=== PATIENT | female | born 1960 | race Caucasian/White ===

== ENCOUNTER → 2017-11-04 11:49 | Outpatient (CLI) | payer OTHER, SELFPAY ==
[2017-11-06 11:27] LABS: Anti-Thyroglobulin AB < 1.0 IU/mL (0.0-0.9); Thyroglobulin, Serum Qt. < 0.1 ng/mL (1.5-38.5)
== END ==
PROVIDERS: Family Provider Family Medicine; PCP Family Medicine; Visit Provider Internal Medicine Endocrinology, Diabetes & Metabolism
DX: C73 Malignant neoplasm of thyroid gland (principal)
CPT/HCPCS: 36415; 84432; 86800

== ENCOUNTER → 2018-05-03 14:01 | Outpatient (CLI) | payer OTHER, SELFPAY ==
[2018-05-03 14:56] LABS: Anion Gap 7 (5-15); BUN 14 mg/dL (7-18); BUN/Creat Ratio 17.7 RATIO (10-20); Chloride 106 mmol/L (98-107); Creatinine, Serum 0.79 mg/dL (0.55-1.02); EST Glomerular Filtration Rate 79 mL/min (>60); Est Glom Filt Rate - Afr Amer 96 mL/min (>60); Glucose 94 mg/dL (74-106); Potassium 4.2 mmol/L (3.5-5.1); Sodium Level 140 mmol/L (136-145); Thyroid Stim Hormone (TSH) 0.23 uIU/mL (0.358-3.74)
[2018-05-04 14:08] LABS: Thyroid Peroxidase AB 15 IU/mL (0-34)
[2018-05-05 13:21] LABS: Anti-Thyroglobulin AB < 1.0 IU/mL (0.0-0.9); Thyroglobulin, Serum Qt. < 0.1 ng/mL (1.5-38.5)
[2018-05-05 15:45] LABS: Thyroglobulin Antibody < 1.0 IU/mL (0.0-0.9)
== END ==
PROVIDERS: Family Provider Family Medicine; PCP Family Medicine; Referring Provider Internal Medicine Endocrinology, Diabetes & Metabolism; Visit Provider Internal Medicine Endocrinology, Diabetes & Metabolism
DX: C73 Malignant neoplasm of thyroid gland (principal)
CPT/HCPCS: 36415; 80048; 84432; 84443; 86376; 86800

== ENCOUNTER → 2018-07-14 09:36 | Outpatient (CLI) | payer OTHER, SELFPAY ==
[2015-05-31 06:42] VITALS: BMI 43.2
[2018-07-14 11:22] LABS: Thyroid Stim Hormone (TSH) 1.13 uIU/mL (0.358-3.74)
== END ==
PROVIDERS: Family Provider Family Medicine; PCP Family Medicine; Referring Provider Internal Medicine Endocrinology, Diabetes & Metabolism; Visit Provider Internal Medicine Endocrinology, Diabetes & Metabolism
DX: C73 Malignant neoplasm of thyroid gland (principal)
CPT/HCPCS: 36415; 84443

== ENCOUNTER → 2018-11-08 | Outpatient (CLI) | payer OTHER, SELFPAY ==
[2015-05-31 06:42] VITALS: BMI 43.2
[2018-11-08 09:48] LABS: Anion Gap 4 (5-15); BUN 15 mg/dL (7-18); BUN/Creat Ratio 16.6 RATIO (10-20); Chloride 108 mmol/L (98-107); EST Glomerular Filtration Rate 68 mL/min (>60); Est Glom Filt Rate - Afr Amer 83 mL/min (>60); Glucose 91 mg/dL (74-106); Potassium 3.8 mmol/L (3.5-5.1); Sodium Level 141 mmol/L (136-145); Thyroid Stim Hormone (TSH) 1.67 uIU/mL (0.358-3.74)
[2018-11-19 08:52] LABS: Thyroglobulin RIA < 2.0 ng/mL (.)
== END | disposition home or self-care (01) ==
PROVIDERS: Family Provider Family Medicine; PCP Family Medicine; Referring Provider Internal Medicine Endocrinology, Diabetes & Metabolism; Visit Provider Internal Medicine Endocrinology, Diabetes & Metabolism
DX: C73 Malignant neoplasm of thyroid gland (principal)
CPT/HCPCS: 36415; 80048; 84432; 84443; 86800

== ENCOUNTER → 2020-01-02 11:52 | Outpatient (CLI) | payer OTHER, SELFPAY ==
--- NOTE | 2020-01-02 12:00 | VDLE_ITS ---
Reason For Study: localized edema RIGHT GSV is normal. CFV is compressible, spontaneous, phasic, competent and demonstrates normal augmentation. FV is compressible, spontaneous, phasic, competent and demonstrates normal augmentation. POP V is compressible, spontaneous, phasic, competent and demonstrates normal augmentation. T/P Trunk is compressible. PTV is compressible. RT PerV is compressible. Procedure Exam performed in department. The exam was abbreviated due to the COVID 19 protocol. The exam was diagnostic. A preliminary report was called and/or faxed to Dr. Da Silva. Interpretation Summary Deep veins of the right lower extremity are patent and compressible segmentally. There is no evidence of right lower extremity deep vein thrombosis. Valvular competence appears intact within the proximal deep venous system on the right . The right great saphenous vein appears patent and compressible segmentally. Ordering Physician: Burton Da Silva Performed By: Ky Fulton RVT
--- NOTE | 2020-01-02 12:23 | RAD_ITS ---
STUDY: X-RAY - RIGHT KNEE REASON FOR EXAM: Female, 59 years old. Knee pain x several weeks, NKI -- swelling TECHNIQUE: 4 view(s) of the knee. COMPARISON: None. FINDINGS: Normal visualized distal femur. Normal visualized proximal tibia and fibula. Normal proximal tibiofibular articulation. There is mild degenerative arthrosis of the medial femorotibial compartment. Normal lateral femorotibial compartment. There is mild degenerative arthrosis of the patellofemoral articulation. There is a soft tissue prominence in the suprapatellar region suggesting a small volume joint effusion. The soft tissue structures are unremarkable. RAD/Knee 4 or More Views IMPRESSION: Mild arthrosis with suprapatellar effusion. No demonstrated fracture or suspicious osseous lesion Electronically Signed: Rafael Membreno MD at 16:50 EDT , Service support ,
== END ==
PROVIDERS: PCP Family Medicine Geriatric Medicine; Referring Provider Family Medicine Geriatric Medicine; Visit Provider Family Medicine Geriatric Medicine
DX: M25.561 Pain in right knee (principal); R60.0 Localized edema
CPT/HCPCS: 73564; 93971

== ENCOUNTER → 2020-02-09 10:19 | Outpatient (CLI) | payer OTHER, SELFPAY ==
[2020-01-29 08:06] VITALS: BMI 39.9
--- NOTE | 2020-02-09 10:20 | MRI_ITS ---
STUDY: MRI RIGHT KNEE REASON FOR EXAM: Right knee pain for 1.5 months, especially medial and anterior, injury. TECHNIQUE: Standardized fat and water weighted pulse sequences were obtained in all 3 orthogonal planes. COMPARISON: Radiographs 01/02/2020. FINDINGS: There is a radial tear of the posterior horn of the medial meniscus (T2 coronal images 13, 14; proton density sagittal image 30). There is mild arthrosis of the medial femorotibial compartment with mild partial-thickness chondral loss of the medial femoral condyle (T2 sagittal image 16). There is very mild subchondral bone edema of the medial femoral condyle and tibial plateau (T2 coronal images 14-16), a stress phenomenon. There is a sprain of the superficial fibers of the medial collateral ligament (T2 coronal image 17). Normal distal semimembranosus, gracilis and semitendinosus tendons. Normal lateral meniscus. Normal hyaline cartilage of the lateral femorotibial compartment. Normal lateral femoral condyle and tibial plateau. Normal proximal tibiofibular articulation. Normal lateral collateral (fibular) ligament. Normal popliteus tendon. Normal biceps femoris tendon. Normal anterior cruciate ligament (ACL). Normal posterior cruciate ligament (PCL). Normal congruent patellofemoral articulation. There is arthrosis of the patellofemoral compartment with chondral thinning (T2 sagittal image 10) and slight subchondral bone edema. Normal medial and lateral patellar retinaculum. Normal visualized quadriceps tendon. Normal patellar tendon. Normal Hoffa''s fat pad. There is a moderate-sized joint effusion. There is edema in the anterior subcutis adipose space. There is cystic change in the proximal tibia at the insertion site of the posterior cruciate ligament. MRI/Lower Ext Joint Only (Routine) IMPRESSION: Radial tear of the medial meniscus. Medial collateral ligament sprain. Patellofemoral arthrosis and mild arthrosis of the medial femorotibial compartment. Very mild subchondral bone edema of the medial femoral condyle and medial tibial plateau, a stress phenomenon. Joint effusion. Electronically Signed: Ras Mayo MD at 11:45 EDT Tel , Service support ,
== END ==
PROVIDERS: PCP Family Medicine Geriatric Medicine; Referring Provider Orthopaedic Surgery; Visit Provider Orthopaedic Surgery
DX: M23.91 Unspecified internal derangement of right knee (principal)
CPT/HCPCS: 73721

== ENCOUNTER 2020-02-20 06:33 | Day surgery (SDC) | payer OTHER, SELFPAY ==
[2020-02-14 08:06] VITALS: BMI 43.2
[2020-02-20 07:00] VITALS: BP 142/77; PULSE 69; RESP 16; TEMP 37.1; O2SAT 97; BMI 40.7
[2020-02-20] MEDS: Lactated Ringers 1,000 ML 100 ML IV (07:05)
--- NOTE | 2020-02-20 07:17 | HP.PCM_ITS ---
History and Physical Date of Admission: 02/20/20 Intake Intake Visit Reasons: RIGHT KNEE Is patient in pain?: Yes Allergies No Known Allergies Allergy (Verified 02/14/20 08:01) Medications Ergocalciferol [Vitamin D] 50,000 unit PO Q7D 04/26/15 [History Confirmed 02/14/20] levothyroxine 75 mcg tablet 175 mcg PO DAILY tab 01/29/20 [History Confirmed 02/14/20] PFSH Social History (Updated 02/14/20 @ 09:[address] Lokesh Powell DO) Smoking Status: Never smoker HPI RIGHT KNEE: Details: Parts of this documentation were recorded by a scribe, this doc umentation accurately reflects the service provided and the decisions made by me, Dr. Lokesh Powell DO 02/14/20 0748. DUSTIN DOMINGUEZ is a 59 year old F here today for right knee followup. Patient no shiv that she continues to have right knee pain. Her pain is over her anterior and medial knee. She complains of tightness all over her anterior knee. Patient has popping and clicking . She has knee instability especially when ambulating on an uneven surface. She had an MRI which is here for review. Patient denies any pain medications. ROS Musc Reports joint pain Skin/Breast Reports system reviewed and no additional complaints, except as docu Neuro Yes system reviewed and no additional complaints, except as docu Ortho Exam Right Knee Skin/Wound: Yes CDI, No erythema, No ecchymosis, Yes swelling Homans Sign: No 2+: Effusion Knee ROM: Yes ROM-Extension -20 to 0, No ROM-Flexion 0-140 (110) Examination: Yes Med jt line tenderness, Yes Crepitus, Yes Masha's Test (medial), Yes TTP Pes Anserine (mild) Stability: NML: Anterior Drawer, NML: Posterior Drawer, NML: Valgus 30, NML: Varus 30 Patella Translation: 1 Apprehension with Lateral Translation: No Patella Grind: Yes KNEE: lateral knee diane. scars over medial knee. Left Knee Patella Translation: 1 Supplemental Info 02/09/2020 MRI right knee: Radial tear posterior horn medial meniscus, Mild to moderate medial and patellofemoral arthrosisMild subchondral bone edema medial femoral condyle and medial tibial plateauJoint effusion 01/02/2020 X-ray right knee: Mild medial joint space narrowing mild spurring medial compartment And medial and lateral femoral condyles Assessment & Plan Problems 1. Other tear of medial meniscus of right knee as current injury, subsequent encounter S83.241D 2. Primary osteoarthritis of right knee M17.11 3. Bone bruise T14.8XXA Plan Spoke with the patient about her options. Recommended the patient have a arthroscopy for the medial meniscus tear. Explained she has edema in her bone and osteoarthritis so she might continue to have pain. If she has knee surgery and continues to have pain at 6 weeks post op, she may have a steroid injection. Spoke with the patient about the surgery procedure and recovery. Patient wanted to proceed with surgery. She should not take ibuprofen and aleve 1 week prior to surgery. Follow up for 2 week post op or sooner if pain, swelling, numbness or associated symptoms, or concerns develop. All questions answered. Patient in agreement of plan. Coding Level of Care Code Off vis,est,level 3 Diagnoses Other tear of medial meniscus of right knee as current injury, subsequent encounter S83.241D ??Encounter type: subsequent encounter ??Meniscus tear of knee type: other type ??Tear current or old: current Primary osteoarthritis of right knee M17.11 I have re-examined the patient. There are no clinical changes since date of exam ??Osteoarthritis type: primary Bone bruise T14.8XXA COVID (Procedure Consent) Procedure Criteria Procedure Criteria: Yes Elective The surgeon/proceduralist and patient have discussed in detail the risk of exposure to and/or potential harm posed by the COVID-19 virus with having a surgery/procedure at this time versus the risk of? delaying the surgery/procedure. It is not possible to know either the risk of delaying the surgery or procedure or chance of getting an infection with perfect accuracy, but a joint decision was made between the patient and the surgeon/proceduralist ?to proceed at this time with the scheduled surgery/procedure as indicated on the consent form. I have re-examined the patient. There are no clinical changes since date of exam Procedure Criteria Procedure Type: Elective COVID Risk Discussion: The surgeon/proceduralist and patient have discussed in detail the risk of exposure to and/or potential harm posed by the COVID-19 virus with having a surgery/procedure at this time versus the risk of delaying the surgery/procedure. It is not possible to know either the risk of delaying the surgery or procedure or chance of getting an infection with perfect accuracy, but a joint decision was made between the patient and the surgeon/proceduralist to proceed at this time with the scheduled surgery/procedure as indicated on the consent form.
[2020-02-20] MEDS: Cefazolin 2 GM in 0.9% Normal Saline 100 ML IV (08:28)
[2020-02-20] MEDS: Epinephrine (1 mg/ml) 1 MG/ML VIAL (08:51)
[2020-02-20] MEDS: Bupiv/Epi 0.5% Mpf 30 ML Vial (08:51)
[2020-02-20] MEDS: Bupivacaine 0.5% PF 10 ML VIAL (09:00)
[2020-02-20] MEDS: MethylPREDNISolone Acetate 80 MG/ML Vial (09:00)
[2020-02-20] MEDS: morphine PF (epidural) 5 MG/10 ML Vial (09:00)
--- NOTE | 2020-02-20 09:08 | DCINST_ITS ---
Discharge Diet: No Restrictions Weight Bearing Status: Weight bearing as tolerated Keep extremity elevated above heart level: Operative Extremity Call your doctor if you observe: Shortness of breath, Chest pain Additional Instructions: Ice and elevate next 72 hours .keep dressing on clean and dry for 48 hours then may remove begin showering daily but do not submerge in tub or pool. After shower may apply Band-Aids . Encourage knee range of motion weightbearing as tolerated, use crutches until confident in knee then may discontinue. No strenuous activity. When not ambulating keep iced and elevated next 72 hours. Allergies/Adverse Reactions: Allergies No Known Allergies Allergy (Verified 02/20/20 06:59) Medications to take at Discharge Ergocalciferol [Vitamin D] 50,000 unit PO Q7D 04/26/15 levothyroxine 75 mcg tablet 175 mcg PO MOTUWETHFRSA tab 01/29/20 Oxycodone [Oxyir] 5 mg PO Q4H PRN PRN #30 tablet 02/20/20 The following prescriptions were given: Oxycodone [Oxyir] 5 mg PO Q4H PRN PRN #30 tablet PRN Reason: Pain Score 6-10/10 Transmission Status: Sent to [facility] Primary Care Physician: Burton Da Silva Chi, MD [Primary Care Provider] - Test Results: Test results from this visit will be discussed in further detail at your follow- up appointment, if applicable. Please Follow Up With: Lokesh Powell DO - 2 weeks
[2020-02-20 09:18] VITALS: BP 117/69; BP 142/77; PULSE 61; RESP 18; TEMP 36.3; O2SAT 96
--- NOTE | 2020-02-20 09:27 | OP.PCM_ITS ---
Report of Operation Date of Procedure: 02/20/20 Description of Surgical Findings:: Preop diagnosis: Right knee medial meniscus tear DJD Postoperative diagnosis: Complex tear posterior horn and body medial meniscus grade 3-4 changes of the medial and patellofemoral compartment with loose cartilage flaps of both Procedure: Right knee arthroscopic partial medial meniscectomy chondroplasty Anesthesia: General Estimated blood loss: 5 mL Tourniquet time: 25 minutes 300 mmHg Complications: none Indication for procedure: 59-year-old female patient who has had ongoing mechanical knee symptoms who is failed conservative treatment who did have MRI evidence of medial meniscus tearing and DJD the patient did wish to proceed with an elective arthroscopic surgery to attempt to alleviate the symptoms. Risk benefits and alternatives of the procedure were reviewed including risk of bleeding infection nerve artery tissue damage need for further surgery continued pain and expected postoperative course. Procedure: The patient was met in the preoperative holding area. The operative extremity was identified by both patient and physician and family and marked. Patient was brought back to the operating room on a wheeled cart and transferred to the operating table in the supine position. Anesthesia was started. A well- padded tourniquet was placed on the operative extremity. A lower extremity leg malagon was secured to the operative extremity. The contralateral extremity was well-padded and the end of the bed was flexed to 90 degrees. The patient was prepped and draped in the usual sterile fashion. A timeout was called to ensure the proper patient, procedure, and extremity were being contemplated. 0.5% Marcaine with epinephrine was injected into the planned incisional areas under the skin only. An Esmarch was used to exsanguinate the extremity and the tourniquet was inflated. An 11 blade scalpel was used to make a stab incision in the anterior lateral portal. The arthroscope was inserted into the intercondylar notch and inflow and outflow tubes were attached. Arthroscopic visualization began. The medial compartment was entered. An 18-gauge spinal needle was used to establish the placement for anterior medial portal. An 11 blade scalpel was used to make a stab incision. Blunt probe was inserted followed by a meniscal probe. Immediately there was noted to be large flaps of complex tearing of the medial meniscus as well as grade 3-4 changes and loose cartilage of the medial femoral condyle and medial tibial plateau as well as the patellofemoral joint the ACL was degenerative and lax. The lateral compartment was entered no significant meniscal or cartilage pathology The arthroscope was switched to the medial portal to complete the procedure. The medial and lateral gutters were inspected and were free of loose bodies. The patellofemoral joint was inspected 3-4 changes of the trochlea and patella chondroplasty was performed of both the patellofemoral and medial compartment. There was good patellar tracking. The knee was thoroughly irrigated and drained. An intra-a rticular injection with 5 cc 0.5% Marcaine plain 4 mg of morphine and 40 mg of Depo-Medrol was injected intra-articularly. The arthroscope was removed the portals were closed with 3-0 nylon arthroscopic stitches. Followed by Xeroform 4 x 4's ABDs web roll and an Romaine wrap. The tourniquet was let down and the drapes were removed. All counts were correct. The patient was brought back to the PACU in stable condition.
[2020-02-20 09:30] VITALS: BP 123/72; BP 142/77; PULSE 62; RESP 18; O2SAT 96
[2020-02-20 09:40] VITALS: BP 113/68; BP 142/77; PULSE 56; RESP 18; TEMP 36.2; O2SAT 97
[2020-02-20 10:45] VITALS: BP 111/69; BP 142/77; PULSE 49; RESP 16; TEMP 36.1; O2SAT 98
== END 2020-02-20 11:00 | disposition home or self-care (01) ==
LOC: SDC 06:33 → AC 06:34
PROVIDERS: Anesthesiology; PCP Family Medicine Geriatric Medicine; Referring Provider Orthopaedic Surgery; Visit Provider Orthopaedic Surgery
PROC: (CPT 29870; principal; 2020-02-20 08:10)
DX: S83.231A Complex tear of medial meniscus, current injury, right knee, initial encounter (principal); M17.11 Unilateral primary osteoarthritis, right knee; Z11.59 Encounter for screening for other viral diseases; Z78.0 Asymptomatic menopausal state; Z85.850 Personal history of malignant neoplasm of thyroid; Z92.3 Personal history of irradiation
CPT/HCPCS: 01400; 29881; 87635; 94799; J7120; J2405; U0003

== ENCOUNTER → 2021-01-22 | Outpatient (CLI) | payer OTHER, SELFPAY ==
[2020-04-15 09:50] VITALS: BMI 40.7
== END | disposition home or self-care (01) ==
LOC: POLAB3 11:00 → LABSPEC 11:01
PROVIDERS: PCP Family Medicine Geriatric Medicine; Visit Provider Family Medicine Geriatric Medicine
DX: N39.0 Urinary tract infection, site not specified (principal)
CPT/HCPCS: 87077; 87086; 87088; 87186

== ENCOUNTER 2022-06-08 17:59 | Outpatient (CLI) | payer OTHER, SELFPAY | END 2022-06-08 23:59 | disposition home or self-care (01) | PROVIDERS: PCP Family Medicine Geriatric Medicine; Visit Provider Family Medicine Geriatric Medicine | DX: N39.0 Urinary tract infection, site not specified (principal) | CPT/HCPCS: 87077; 87086; 87088; 87186 ==

== ENCOUNTER → 2023-04-29 | Outpatient (CLI) | payer OTHER, SELFPAY | END | disposition home or self-care (01) | LOC: PSN 09:33 | PROVIDERS: PCP Family Medicine Geriatric Medicine; Referring Provider Family Medicine Geriatric Medicine; Visit Provider Family Medicine Geriatric Medicine | DX: R68.83 Chills (without fever) (principal) | CPT/HCPCS: 87635; 87804; 87807; C9803 ==

== ENCOUNTER → 2023-06-23 | Outpatient (CLI) | payer OTHER, SELFPAY ==
[2023-06-23 12:35] LABS: Absolute Lymphocyte Count 1.41 X10^3/uL (0.83-4.51); Absolute Neutrophil Count 3.6 X10^3/uL (2.0-7.7); Basophil# 0.05 X10^3/uL; Basophil% 0.9 % (0-1); Eosinophil# 0.27 X10^3/uL; Eosinophils% 4.7 % (0-5); Hematocrit 48.8 % (37-47); Hemoglobin 15.3 g/dL (12.0-15.0); Lymphocyte # 1.41 X10^3/ul (0.83-4.51); Lymphocyte % 24.7 % (19-41); Mean Corp Hgb Conc 31.4 g/dL (32-36); Mean Corpuscular Hgb 28.7 pg (27.0-32.0); Mean Corpuscular Volume 91.6 fL (81-99); Mean Platelet Vol. 9.8 fl (6.2-12.0); Monocyte# 0.32 X10^3/uL; Monocyte% 5.6 % (0-10); NRBC Flagged by Analyzer 0 % (0-5); Neutrophil # 3.62 X10^3/uL (2.7-7.7); Neutrophil % 63.6 % (47-70); Platelet Count 239 K/mm3 (150-450); RBC Distribution Width CV 13.5 % (11.6-14.6); RBC Distribution Width SD 45.6 fl (35.1-43.9); Red Blood Count 5.33 M/mm3 (4.2-5.4); White Blood Count 5.7 K/mm3 (4.4-11.0)
[2023-06-23 13:03] LABS: Vitamin D,25 Hydroxy 78.3 ng/mL
[2023-06-23 13:32] LABS: ALB/GLOB Ratio 0.9 RATIO (0.9-2.4); AST(SGOT) 15 U/L (15-37); Alanine Aminotransfer ALT/SGPT 32 U/L (13-56); Albumin, Serum 3.5 g/dL (3.2-5.0); Alkaline Phosphatase 105 U/L (45-117); Anion Gap 5 (5-15); BUN 14 mg/dL (7-18); BUN/Creat Ratio 17.4 RATIO (10-20); Calcium,Total 9.2 mg/dL (8.5-10.1); Chloride 110 mmol/L (98-107); Cholesterol 184 mg/dL (200); EST Glomerular Filtration Rate 77 mL/min (>60); Est Glom Filt Rate - Afr Amer 93 mL/min (>60); Globulin 3.9 g/dL (2.2-4.2); Glucose 95 mg/dL (74-106); High Density Lipoprotein 67 mg/dL; Potassium 3.9 mmol/L (3.5-5.1); Protein, Total 7.4 g/dL (6.4-8.2); Sodium Level 140 mmol/L (136-145); Thyroid Stim Hormone (TSH) 0.39 uIU/mL (0.358-3.74); Triglycerides 64 mg/dL; Very Low Density Lipoprotein 13 mg/dL (5-40)
== END | disposition home or self-care (01) ==
LOC: LAB 11:10
PROVIDERS: PCP Family Medicine Geriatric Medicine; Referring Provider Family Medicine Geriatric Medicine; Visit Provider Family Medicine Geriatric Medicine
DX: E78.5 Hyperlipidemia, unspecified (principal); I10 Essential (primary) hypertension; E55.9 Vitamin D deficiency, unspecified
CPT/HCPCS: 36415; 80053; 80061; 82306; 84443; 85025

== ENCOUNTER → 2023-10-12 | Outpatient (CLI) | payer OTHER, SELFPAY | END | disposition home or self-care (01) | LOC: PSN 07:52 | PROVIDERS: PCP Family Medicine Geriatric Medicine; Referring Provider Family Medicine Geriatric Medicine; Visit Provider Family Medicine Geriatric Medicine | DX: R68.83 Chills (without fever) (principal) | CPT/HCPCS: 87631 ==

== ENCOUNTER → 2023-11-11 | Outpatient (CLI) | payer OTHER, SELFPAY ==
--- NOTE | 2023-11-11 08:36 | BI_ITS ---
MAMMOGRAPHY - BILATERAL SCREENING REASON FOR EXAM: Female, 63 years old. Routine annual screening examination. PERTINENT HISTORY: Aunt with breast cancer. TECHNIQUE: Digital bilateral breast radha (3D mammographic acquisition) in the CC and MLO projections. 2-D mediolateral oblique (MLO) and craniocaudad (CC) views of both breasts were obtained. CAD: Full Field Digital Mammography with Computer Added Detection was performed. COMPARISON: Comparison is made with prior outside examination dated August 04, 2021. FINDINGS: Breast Composition: The breasts are almost entirely fatty. There are no dominant masses or suspicious calcifications. No other significant abnormalities are identified. There has been no significant change since the prior study. BI/SCRN MAMM (CAD)W/RADHA BILAT IMPRESSION: Stable bilateral screening mammogram. Yearly follow-up mammogram recommended. (A) ASSESSMENT CATEGORY: BIRADS Category 1: Negative. A letter regarding these results will be sent to the patient by the facility within 30 days. Approximately 10% of breast cancers are not detected by mammography. A normal mammogram should not delay biopsy of a clinically suspicious abnormality. [id number] Electronically Signed: Sj Amato MD at 14:33 EDT ,
== END | disposition home or self-care (01) ==
LOC: OPBI 08:34
PROVIDERS: PCP Family Medicine Geriatric Medicine; Referring Provider Family Medicine Geriatric Medicine; Visit Provider Family Medicine Geriatric Medicine
DX: Z12.31 Encounter for screening mammogram for malignant neoplasm of breast (principal); Z80.3 Family history of malignant neoplasm of breast
CPT/HCPCS: 77063; 77067

== ENCOUNTER → 2023-11-22 | Outpatient (CLI) | payer OTHER, SELFPAY ==
[2023-11-22 11:32] LABS: Anion Gap 3 (5-15); BUN 20 mg/dL (7-18); BUN/Creat Ratio 26.2 RATIO (10-20); Calcium,Total 9.7 mg/dL (8.5-10.1); Chloride 110 mmol/L (98-107); Creatinine, Serum 0.76 mg/dL (0.55-1.02); EST Glomerular Filtration Rate 81 mL/min (>60); Est Glom Filt Rate - Afr Amer 98 mL/min (>60); Glucose 92 mg/dL (74-106); Sodium Level 139 mmol/L (136-145); Thyroid Stim Hormone (TSH) 4.29 uIU/mL (0.358-3.74)
[2023-11-23 16:09] LABS: Thyroglobulin Antibody < 1.0 IU/mL (0.0-0.9); Thyroid Peroxidase AB < 9 IU/mL (0-34)
== END | disposition home or self-care (01) ==
LOC: LAB 10:07
PROVIDERS: PCP Family Medicine Geriatric Medicine; Referring Provider Internal Medicine Endocrinology, Diabetes & Metabolism; Visit Provider Internal Medicine Endocrinology, Diabetes & Metabolism
DX: C73 Malignant neoplasm of thyroid gland (principal)
CPT/HCPCS: 36415; 80048; 84443; 86376; 86800

== ENCOUNTER → 2023-12-03 | Outpatient (CLI) | payer OTHER, SELFPAY ==
[2023-12-07 18:07] LABS: Anti-Thyroglobulin AB < 1.0 IU/mL (0.0-0.9); Thyroglobulin, Serum Qt. < 0.1 ng/mL (1.5-38.5)
== END | disposition home or self-care (01) ==
LOC: LAB 09:23
PROVIDERS: PCP Family Medicine Geriatric Medicine; Referring Provider Internal Medicine Endocrinology, Diabetes & Metabolism; Visit Provider Internal Medicine Endocrinology, Diabetes & Metabolism
DX: C73 Malignant neoplasm of thyroid gland (principal)
CPT/HCPCS: 36415; 84432; 86800

== ENCOUNTER → 2023-12-14 | Outpatient (CLI) | payer OTHER, SELFPAY ==
--- NOTE | 2023-12-10 14:30 | VUL_PTH ---
PATIENT: DUSTIN DOMINGUEZ LOC: [facility] U#:[id number] AGE/SX: 63/F ROOM: RE12/14/[address]: Dr. May Durham DO : 1960 BED: DIS: 12/14/2023 SPEC #: [id number] RECD: 12/10/23 16:35 STATUS: OPAL RAJEEV #: [id number] JACQUELINE: 12/10/23 14:[address]: May Durham DEPT: SURGICAL PATHOLOGY RECD BY: Judith George Tissues: Vulva, NOS Procedures: Surgery Specimen Level IV HEADER OPERATION: Vulvar biopsy PRE-OP DIAGNOSIS: Vulvar itching TISSUE SUBMITTED: Left labia MICROSCOPIC DIAGNOSIS Left labia, biopsy: Consistent with lichen sclerosus et atrophicus. AM/mr 12/15/2023 MICROSCOPIC DESCRIPTION Slides are reviewed. GROSS DESCRIPTION Received in fixative is one container labeled with the patient's name and designated Vulvar biopsy. The specimen consists of one irregular fragment of light mcgarry soft tissue that measures 0.2 x 0.2 x 0.1 cm. The specimen is totally submitted in one cassette. RAFAEL/ 12/14/2023 TC:3 CPT:14459
== END | disposition home or self-care (01) ==
LOC: LABSPEC 08:39
PROVIDERS: Visit Provider Obstetrics & Gynecology
DX: L29.2 Pruritus vulvae (principal)
CPT/HCPCS: 88305

== ENCOUNTER → 2024-05-01 | Outpatient (CLI) | payer OTHER, SELFPAY | END | disposition home or self-care (01) | LOC: POLAB3 10:47 | PROVIDERS: PCP Family Medicine Geriatric Medicine; Visit Provider Family Medicine Geriatric Medicine | DX: R68.83 Chills (without fever) (principal) | CPT/HCPCS: 87631 ==

== ENCOUNTER → 2024-05-18 | Outpatient (CLI) | payer OTHER, SELFPAY ==
[2024-05-18 13:11] LABS: Anion Gap 7 (5-15); BUN 14 mg/dL (7-18); BUN/Creat Ratio 16.1 RATIO (10-20); Calcium,Total 9.4 mg/dL (8.5-10.1); Chloride 107 mmol/L (98-107); Creatinine, Serum 0.87 mg/dL (0.55-1.02); EST Glomerular Filtration Rate 70 mL/min (>60); Est Glom Filt Rate - Afr Amer 85 mL/min (>60); Glucose 99 mg/dL (74-106); Potassium 3.8 mmol/L (3.5-5.1); Sodium Level 140 mmol/L (136-145)
[2024-05-19 16:10] LABS: Thyroglobulin Antibody < 1.0 IU/mL (0.0-0.9); Thyroid Peroxidase AB < 9 IU/mL (0-34)
== END | disposition home or self-care (01) ==
LOC: LAB 12:05
PROVIDERS: PCP Family Medicine Geriatric Medicine; Referring Provider Internal Medicine Endocrinology, Diabetes & Metabolism; Visit Provider Internal Medicine Endocrinology, Diabetes & Metabolism
DX: C73 Malignant neoplasm of thyroid gland (principal)
CPT/HCPCS: 36415; 80048; 84443; 86376; 86800

== ENCOUNTER → 2024-07-03 | Outpatient (CLI) | payer OTHER, SELFPAY ==
[2024-07-03 09:31] LABS: Absolute Lymphocyte Count 1.53 X10^3/uL (0.83-4.51); Absolute Neutrophil Count 4.6 X10^3/uL (2.0-7.7); Basophil# 0.05 X10^3/uL; Basophil% 0.7 % (0-1); Eosinophil# 0.58 X10^3/uL; Eosinophils% 7.9 % (0-5); Hematocrit 44.7 % (37-47); Hemoglobin 14.1 g/dL (12.0-15.0); Lymphocyte # 1.53 X10^3/ul (0.83-4.51); Lymphocyte % 20.9 % (19-41); Mean Corp Hgb Conc 31.5 g/dL (32-36); Mean Corpuscular Hgb 29.4 pg (27.0-32.0); Mean Corpuscular Volume 93.1 fL (81-99); Mean Platelet Vol. 9.8 fl (6.2-12.0); Monocyte# 0.53 X10^3/uL; Monocyte% 7.2 % (0-10); NRBC Flagged by Analyzer 0 % (0-5); Neutrophil # 4.59 X10^3/uL (2.7-7.7); Neutrophil % 62.8 % (47-70); Platelet Count 256 K/mm3 (150-450); RBC Distribution Width CV 13.9 % (11.6-14.6); RBC Distribution Width SD 47.6 fl (35.1-43.9); White Blood Count 7.3 K/mm3 (4.4-11.0)
[2024-07-03 10:13] LABS: ALB/GLOB Ratio 0.9 RATIO (0.9-2.4); AST(SGOT) 17 U/L (15-37); Alanine Aminotransfer ALT/SGPT 23 U/L (13-56); Albumin, Serum 3.4 g/dL (3.2-5.0); Alkaline Phosphatase 102 U/L (45-117); Anion Gap 4 (5-15); BUN 14 mg/dL (7-18); BUN/Creat Ratio 18.3 RATIO (10-20); Calcium,Total 9.3 mg/dL (8.5-10.1); Chloride 108 mmol/L (98-107); Cholesterol 203 mg/dL (200); Creatinine, Serum 0.76 mg/dL (0.55-1.02); EST Glomerular Filtration Rate 81 mL/min (>60); Est Glom Filt Rate - Afr Amer 98 mL/min (>60); Globulin 3.9 g/dL (2.2-4.2); Glucose 101 mg/dL (74-106); High Density Lipoprotein 79 mg/dL; Potassium 4.1 mmol/L (3.5-5.1); Protein, Total 7.3 g/dL (6.4-8.2); Sodium Level 140 mmol/L (136-145); Triglycerides 48 mg/dL; Very Low Density Lipoprotein 10 mg/dL (5-40)
== END | disposition home or self-care (01) ==
LOC: POLAB3 09:06
PROVIDERS: PCP Family Medicine Geriatric Medicine; Visit Provider Family Medicine Geriatric Medicine
DX: I10 Essential (primary) hypertension (principal); E78.5 Hyperlipidemia, unspecified
CPT/HCPCS: 36415; 80053; 80061; 85025

== ENCOUNTER → 2024-07-20 | Outpatient (CLI) | payer OTHER, SELFPAY ==
[2024-07-21 16:08] LABS: Anti-Thyroglobulin AB < 1.0 IU/mL (0.0-0.9); Thyroglobulin, Serum Qt. < 0.1 ng/mL (1.5-38.5)
== END | disposition home or self-care (01) ==
PROVIDERS: PCP Family Medicine Geriatric Medicine; Referring Provider Internal Medicine Endocrinology, Diabetes & Metabolism; Visit Provider Internal Medicine Endocrinology, Diabetes & Metabolism
DX: C73 Malignant neoplasm of thyroid gland (principal)
CPT/HCPCS: 36415; 84432; 84443; 86800

== ENCOUNTER → 2024-11-17 | Outpatient (CLI) | payer OTHER, SELFPAY ==
[2024-11-17 11:45] LABS: Anion Gap 11 (5-15); BUN 15 mg/dL (4-19); BUN/Creat Ratio 18.8 RATIO (10-20); Calcium,Total 9.6 mg/dL (7.6-11.0); Carbon Dioxide 22.2 mmol/L (21.0-32.0); Chloride 105 mmol/L (98-108); Creatinine, Serum 0.77 mg/dL (0.70-1.20); EST Glomerular Filtration Rate 86 (>60); Glucose 95 mg/dL (70-99); Sodium Level 139 mmol/L (133-145)
== END | disposition home or self-care (01) ==
LOC: LAB 09:27
PROVIDERS: PCP Family Medicine Geriatric Medicine; Referring Provider Internal Medicine Endocrinology, Diabetes & Metabolism; Visit Provider Internal Medicine Endocrinology, Diabetes & Metabolism
DX: C73 Malignant neoplasm of thyroid gland (principal)
CPT/HCPCS: 36415; 80048; 84432; 84443; 86800

== ENCOUNTER → 2025-02-20 | Outpatient (CLI) | payer OTHER, SELFPAY | END | disposition home or self-care (01) | LOC: POLAB3 15:34 | PROVIDERS: PCP Family Medicine Geriatric Medicine; Visit Provider Family Medicine Geriatric Medicine | DX: R68.83 Chills (without fever) (principal) | CPT/HCPCS: 87631 ==

== ENCOUNTER → 2025-02-23 | Outpatient (CLI) | payer OTHER, SELFPAY ==
--- NOTE | 2025-02-23 13:36 | BI_ITS ---
EXAM: SCRN MAMM (CAD)W/RADHA BILAT DATE: 02/23/2025 CLINICAL HISTORY: F, Age 64 y/o , SCREEN Aunt with breast cancer. TECHNIQUE: SCRN MAMM (CAD)W/RADHA BILAT COMPARISON: Prior exam(s) dated November 11, 2023.. FINDINGS: TISSUE DENSITY: The breasts are almost entirely fatty. Bilateral Breast Mammographic Findings: No significant masses, calcifications or other abnormalities are identified. No suspicious masses, areas of developing architectural distortion, or suspicious calcifications. There has been no significant interval change. BI/SCRN MAMM (CAD)W/RADHA BILAT IMPRESSION: Stable examination. OVERALL FINAL ASSESSMENT BI-RADS 1: NEGATIVE. RECOMMENDATION: Routine annual follow-up in 1 Year A letter with findings and recommendations will be mailed to the patient. Reading Location: [id number]
--- NOTE | 2025-02-23 13:36 | BI_ITS ---
EXAM: SCRN MAMM (CAD)W/RADHA BILAT DATE: 02/23/2025 CLINICAL HISTORY: F, Age 64 y/o , SCREEN Aunt with breast cancer. TECHNIQUE: SCRN MAMM (CAD)W/RADHA BILAT COMPARISON: Prior exam(s) dated November 11, 2023.. FINDINGS: TISSUE DENSITY: The breasts are almost entirely fatty. Bilateral Breast Mammographic Findings: No significant masses, calcifications or other abnormalities are identified. No suspicious masses, areas of developing architectural distortion, or suspicious calcifications. There has been no significant interval change. BI/SCRN MAMM (CAD)W/RADHA BILAT IMPRESSION: Stable examination. OVERALL FINAL ASSESSMENT BI-RADS 1: NEGATIVE. RECOMMENDATION: Routine annual follow-up in 1 Year A letter with findings and recommendations will be mailed to the patient. Reading Location: [id number]
--- OUTSIDE RECORDS SUMMARY | 2025-02-23 14:28 | XMS RPT_ITS | CCD ---
Author Organization [facility] Care Team Providers Care Pbx Supervisor Name Role Phone EDUARDO DAMICO Unavailable Unavailable EDUARDO DAMICO Unavailable Unavailable ALEM RAMON Unavailable Unavailable JOLENE MONTES, DR PRIETO Primary Care Physician JOLENE MONTES, DR PRIETO Primary Care Physician DELANEY MAGAÑA MD Attending Unavailable JOLENE MONTES, DR PRIETO Primary Care Unavailable Dr. Burton Da Silva Chi Primary Care Provider Dr. Burton Da Silva Chi Referring Provider [phone] LISA Gold Attending Provider Jolene, Burton Chi Referring Unavailable May Durham Attending UnavailMay Willoughby Attending Unavailabl e Jolene, Burton Chi Primary Care Unavailable Jolene, Burton Chi Attending Unavailable Jolene, Burton Chi Primary Care Unavailable Delaney Magaña Attending Unavailable Delaney Magaña Referring Unavailable Delaney Magaña Referring Unavailable Delaney Magaña Attending Unavailable Jolene, Burton Chi Primary Care Unavailable Delaney Magaña Attending Unavailable Delaney Magaña Referring Unavailable Jolene, Burton Chi Primary Care Unavailable Jolene, Burton Chi Primary Care Unavailable Jolene, Burton Chi Attending Unavailable Delaney Magaña Attending Unavailable Delaney Magaña Referring Unavailable Jolene, Burton Chi Primary Care Unavailable May Durham Attending Unavailabl e Medications Current Medications Medication Drug Class(es) Dates Sig (Normalized) Sig (Original) citalopram 20 mg oral tablet (2 sources) Serotonin Reuptake Inhibitor Start: 11-03-2023 take 20 mg by mouth once daily Citalopram Active 20 MG PO DAILY November 03, 2023 12:00am ergocalciferol 1.25 mg oral capsule (6 sources) Provitamin D2 Compound Start: 04-26-2015 take 23199 [IU] by mouth every week Ergocalciferol (Vitamin D2) Active 85973 UNIT PO Q7D April 26, 2015 12:00am levothyroxine sodium 0.075 mg oral tablet (17 sources) l-Thyroxine Start: 11-03-2023 take 1 tablet by mouth once daily Levothyroxine (Synthroid) 75 mcg tablet Active 75 MCG PO DAILY November 03, 2023 12:00am Start: 01-29-2020 End: 11-03-2023 Levothyroxine Discontinued 1 75 MCG PO MOTUWETHFRSA January 29, 2020 8:06am November 03, 2023 2:28pm Start: 01-28-2017 Synthroid 175 mcg (0.175 mg) oral tablet Dose : 175 mcg = 1 tab(s), Oral, qDay, 0 Refill(s) Start Date: 01/28/17 Status: Ordered Start: 04-26-2015 End: 01-29-2020 take 75 ug by mouth once daily Levothyroxine Discontin ued 75 MCG PO DAILY April 26, 2015 12:00am January 29, 2020 8:07am vitamin d 50,000 otc (3 sources) Start: 01-29-2017 vitamin d 50,0 00 otc vitamin d 50,000 otc, 0 Refill(s) Start Date: 01/29/17 Status: Ordered Completed/Discontinued Medications Medication Drug Class(es) Dates Sig (Normalized) Sig (Original) oxyCODONE hydrochloride 5 mg oral tablet (6 sources) Opioid Agonist Start: 02-20-2020 End: 04-01-2020 take 1-2 tablets by mouth every four hours as needed for pain Oxycodone Discontinued 5 MG PO EVERY 4 HOURS NEEDED February 20, 2020 April 01, 2020 9:06am 1-2 tabs by mouth every 4 hrs as needed for pain tacrolimus 0.0003 mg/mg topical ointment (6 sources) Calcineurin Inhibitor Immunosuppressant Start: 04-26-2015 End: 01-29-2020 Tacrolimus Discontinued 0 GM TOPICAL NEEDED April 26, 2015 12:00am January 29, 2020 8:07am Problems Active Problems Problem Classification Problem Date Documented Da te Episodic/Chronic Cancer of thyroid (1 source) Malignant neoplasm of thyroid gland; Translations: [Malignant neoplasm of thyroid gland] Onset: 11-21-2024 Chronic Contraceptive and procreative management (4 sources) Patient encounter status; Translations: [Encounter for genetic counseling] 11-03-2023 Episodic Essential hypertension (1 source) Essential (primary) hypertension; Translations: [Essential (primary) hypertension] Onset: 08-03-2024 Chronic Other inflammatory condition of skin (2 sources) Pruritus of vulva; Translations: [Pruritus vulvae] 11-03-2023 Episodic Other skin disorders (1 source) Lichen sclerosus et atrophicus; Translations: [Lichen sclerosus et atrophicus] Onset: 03-13-2024 Chronic Unclassified (1 source) Unknown / UNK(Unknown) Onset: 01-29-2017 Past or Other Problems Problem Classification Problem Date Documented Da te Episodic/Chronic Other inflammatory condition of skin (3 sources) Pruritus vulvae; Translations: [Pruritus of genital organs] Onset: 03-13-2024 11-03-2023 Episodic Residual codes; unclassified (1 source) Chills (without fever); Translations: [Chills (without fever)] Onset: 05-23-2024 Episodic Unclassified (1 source) HISTORY OF POLYPS Onset: 01-29-2017 Results Test Name Value Interpretation Reference Range Facility Thyroglobulin w/Anti-TG ABon 11-26-2024 Anti-TG AB 1.4 IU/mL High 0.0-0.9 [facility] Comment on above: Result Comment: Thyr oglobulin Antibody measured by [employer] It should be noted that the presence of thyroglobulin antibodies may not be pathogenic nor diagnostic, especially at very low levels. The assay precision machining instructor has found that four percent of individuals without evidence of thyroid disease or autoimmunity will have positive TgAb levels up to 4 IU/mL. Performed By: #### L 500.2500, L3300.6820, L501.9520 ####[facility] [address], [address] TG-NIELS < 2.0 Normal . [facility] Comment on above: Result Comment: This test was developed and its performance characteristics determined by [employer]. It has not been cleared or approved by the Food and Drug Administration. Reference Range: Pubertal Children and Adults: <40 According to the National Academy of Clinical Biochemistry, the reference interval for Thyroglobulin (TG) should be related to euthyroid patients and not for patients who underwent thyroidectomy. TG reference intervals for these patients depend on the residual mass of the thyroid tissue left after surgery. Establishing a post-operative baseline is recommended. The assay quantitation limit is 2.0 ng/mL. Performed at: [employer] [facility] [id number] Pig Furnace Operator: Eduardo Sanford PhD, Phone: [phone] Performed at: [facility] [address] [place] [id number] [employer] Furnace Operator: Thien Cardenas MD, Phone: [phone] Performed By: #### L 500.2500, L3300.6820, L501.9520 ####[facility] [address] [place], [address] Basic Metabolic Profile (BMP )on 11-17-2024 BUN/CRE 18.8 RATIO Normal 10-20 [facility] Comment on above: Performed By: #### L 500.2500, L3300.6820, L501.9520 ####[facility] [address] [place], [address] Calcium [Mass/Vol] 9.6 mg/dL Normal 7.6-11.0 [facility] Comment on above: Performed By: #### L 500.2500, L3300.6820, L501.9520 ####[facility] [address] [place], [address] Chloride [Moles/Vol] 105 mmol/L Normal 98-108 [facility] Comment on above: Performed By: #### L 500.2500, L3300.6820, L501.9520 ####[facility] [address] [place], [address] CO2 [Moles/Vol] 22.2 mmol/L Normal 21.0-32.0 [facility] Comment on above: Performed By: #### L 500.2500, L3300.6820, L501.9520 ####[facility] [address] [place], [address] Creatinine [Mass/Vol] 0.77 mg/dL Normal 0.70-1.20 [facility] Comment on above: Performed By: #### L 500.2500, L3300.6820, L501.9520 ####[facility] [address] [place], [address] GAP 11 Normal 5-15 [facility] Comment on above: Performed By: #### L 500.2500, L3300.6820, L501.9520 ####[facility] [address] [place], [address] GFR/1.73 sq M.predicted among non-blacks MDRD (S/P/Bld) [Vol rate/Area] 86 mL/min/{1.73_m2} Normal >60 [facility] Comment on above: Result Comment: mL/m in/1.73m2 CKD-EPI Creatinine Equation (2020) Performed By: #### L 500.2500, L3300.6820, L501.9520 ####[facility] [address] [place], [address] Glucose [Mass/Vol] 95 mg/dL Normal 70-99 [facility] Comment on above: Performed By: #### L 500.2500, L3300.6820, L501.9520 ####[facility] [address] [place], [address] Potassium [Moles/Vol] 4.0 mmol/L Normal 3.3-5.1 [facility] Comment on above: Performed By: #### L 500.2500, L3300.6820, L501.9520 ####[facility] [address] [place], [address] Sodium [Moles/Vol] 139 mmol/L Normal 133-145 [facility] Comment on above: Performed By: #### L 500.2500, L3300.6820, L501.9520 ####[facility] [address] [place], [address] Urea nitrogen [Mass/Vol] 15 mg/dL Normal 4-19 [facility] Comment on above: Performed By: #### L 500.2500, L3300.6820, L501.9520 ####[facility] [address] [place], [address] Thyroid Stim Hormone (TSH)on 11-17-2024 TSH 1.340 uIU/mL Normal 0.300-4.20 0 [facility] Comment on above: Performed By: #### L 500.2500, L3300.6820, L501.9520 ####[facility] [address] [facility] [address] [place], [address] Thyroglobulin w/Anti-TG ABon 07-21-2024 Anti-TG AB < 1.0 Normal 0.0-0.9 [facility] Comment on above: Result Comment: Thyr oglobulin Antibody measured by [employer] It should be noted that the presence of thyroglobulin antibodies may not be pathogenic nor diagnostic, especially at very low levels. The assay precision machining instructor has found that four percent of individuals without evidence of thyroid disease or autoimmunity will have positive TgAb levels up to 4 IU/mL. Performed By: #### L 3300.6820, L501.9520 #### [facility] [address] [place], [address] THYROGLOB QUANT < 0.1 Low 1.5-38.5 [facility] Comment on above: Result Comment: Acco rding to the National Academy of Clinical Biochemistry, the reference interval for Thyroglobulin (TG) should be related to euthyroid patients and not for patients who underwent thyroidectomy. TG reference intervals for these patients depend on the residual mass of the thyroid tissue left after surgery. Establishing a post-operative baseline is recommended. The assay limit of quantitation is 0.1 ng/mL Thyroglobulin measured by [employer] Performed at: [address] [id number] Pig Furnace Operator: Eduardo Sanford PhD, Phone: [phone] Performed By: #### L 3300.6820, L501.9520 #### [facility] [address] [place], [address] Thyroid Stim Hormone (TSH)on 07-20-2024 TSH 2.620 uIU/mL Normal 0.358-3.74 0 [facility] Comment on above: Performed By: #### L 3300.6820, L501.9520 #### [facility] [address] [place], [address] CBC W/Diff, Automatedon 12-1 Absolute Lymph 1.53 X10 3/uL Normal 0.83-4.51 [facility] Comment on above: Performed By: #### L 500.4050, L500.4100, L100.0100 ####[facility] [address] [place], [address] Absolute Neut 4.6 X10 3/uL Normal 2.0-7.7 [facility] Comment on above: Performed By: #### L 500.4050, L500.4100, L100.0100 ####[facility] [address] [place], [address] Basophils/100 WBC (Bld) 0.7 % Normal 0-1 [facility] Comment on above: Performed By: #### L 500.4050, L500.4100, L100.0100 ####[facility] [address] [place], [address] Eosinophils/100 WBC (Bld) 7.9 % High 0-5 [facility] Comment on above: Performed By: #### L 500.4050, L500.4100, L100.0100 ####[facility] [address] [place], [address] Erythrocyte distribution width (RBC) [Ratio] 13.9 % Normal 11.6-14.6 [facility] Comment on above: Performed By: #### L 500.4050, L500.4100, L100.0100 ####[facility] [address] [place], [address] Hematocrit (Bld) [Volume fraction] 44.7 % Normal 37-47 [facility] Comment on above: Performed By: #### L 500.4050, L500.4100, L100.0100 ####[facility] [address] [place], [address] Hemoglobin (Bld) [Mass/Vol] 14.1 g/dL Normal 12.0-15.0 [facility] Comment on above: Performed By: #### L 500.4050, L500.4100, L100.0100 ####[facility] [address] [place], [address] IG% 0.500 Normal 0.0-0.9 [facility] Comment on above: Result Comment: IG% - Immature Granulocytes (promyelocytes, myelocytes and metamyelocytes) > 1% indicates that a LEFT SHIFT is Present. Performed By: #### L 500.4050, L500.4100, L100.0100 ####[facility] [address] [place], [address] Lymphocytes/100 WBC (Bld) 20.9 % Normal 19-41 [facility] Comment on above: Performed By: #### L 500.4050, L500.4100, L100.0100 ####[facility] [address] [place], [address] MCH (RBC) [Entitic mass] 29.4 pg Normal 27.0-32.0 [facility] Comment on above: Performed By: #### L 500.4050, L500.4100, L100.0100 ####[facility] [address] [place], [address] MCHC (RBC) [Mass/Vol] 31.5 g/dL Low 32-36 [facility] Comment on above: Performed By: #### L 500.4050, L500.4100, L100.0100 ####[facility] [address] [place], [address] MCV (RBC) [Entitic vol] 93.1 fL Normal 81-99 [facility] Comment on above: Performed By: #### L 500.4050, L500.4100, L100.0100 ####[facility] [address] [place], [address] Monocytes/100 WBC (Bld) 7.2 % Normal 0-10 [facility] Comment on above: Performed By: #### L 500.4050, L500.4100, L100.0100 ####[facility] [address] [place], [address] Neutrophils/100 WBC (Bld) 62.8 % Normal 47-70 [facility] Comment on above: Performed By: #### L 500.4050, L500.4100, L100.0100 ####[facility] [address] [place], [address] Nucleated RBC (Bld) [#/Vol] 0 10*3/uL Normal 0-5 [facility] Comment on above: Performed By: #### L 500.4050, L500.4100, L100.0100 ####[facility] [address] [place], [address] Platelet mean volume (Bld) [Entitic vol] 9.8 fL Normal 6.2-12.0 [facility] Comment on above: Performed By: #### L 500.4050, L500.4100, L100.0100 ####[facility] [address] [place], [address] Platelets (Bld) [#/Vol] 256 10*3/uL Normal 150-450 [facility] Comment on above: Performed By: #### L 500.4050, L500.4100, L100.0100 ####[facility] [address] [place], [address] RBC (Bld) [#/Vol] 4.80 10*6/uL Normal 4.2-5.4 [facility] Comment on above: Performed By: #### L 500.4050, L500.4100, L100.0100 ####[facility] [address] [place], [address] RDW SD 47.6 fl High 35.1-43.9 [facility] Comment on above: Performed By: #### L 500.4050, L500.4100, L100.0100 ####[facility] [address] [place], [address] WBC (Bld) [#/Vol] 7.3 10*3/uL Normal 4.4-11.0 [facility] Comment on above: Performed By: #### L 500.4050, L500.4100, L100.0100 ####[facility] [address] [place], [address] Comprehensive Metabolic Prof [facility] 07-03-2024 Albumin [Mass/Vol] 3.4 g/dL Normal 3.2-5.0 [facility] Comment on above: Performed By: #### L 500.4050, L500.4100, L100.0100 ####[facility] [address] [place], [address] Albumin/Globulin [Mass ratio] 0.9 {ratio} Normal 0.9-2.4 [facility] Comment on above: Performed By: #### L 500.4050, L500.4100, L100.0100 ####[facility] [address] [place], [address] ALK P 102 U/L Normal 45-117 [facility] Comment on above: Performed By: #### L 500.4050, L500.4100, L100.0100 ####[facility] [address] [place], [address] ALT [Catalytic activity/Vol] 23 U/L Normal 13-56 [facility] Comment on above: Performed By: #### L 500.4050, L500.4100, L100.0100 ####[facility] [address] [place], [address] AST [Catalytic activity/Vol] 17 U/L Normal 15-37 [facility] Comment on above: Performed By: #### L 500.4050, L500.4100, L100.0100 ####[facility] [address] [place], [address] Bilirubin [Mass/Vol] 0.70 mg/dL Normal 0.20-1.00 [facility] Comment on above: Result Comment: For patients on eltrombopag therapy, use of Dimension Clifford TBIL is not recommended. Performed By: #### L 500.4050, L500.4100, L100.0100 ####[facility] [address] [place], [address] BUN/CRE 18.3 RATIO Normal 10-20 [facility] Comment on above: Performed By: #### L 500.4050, L500.4100, L100.0100 ####[facility] [address] [place], [address] CA,Total 9.3 mg/dL Normal 8.5-10.1 [facility] Comment on above: Performed By: #### L 500.4050, L500.4100, L100.0100 ####[facility] [address] [place], [address] Chloride [Moles/Vol] 108 mmol/L High 98-107 [facility] Comment on above: Performed By: #### L 500.4050, L500.4100, L100.0100 ####[facility] [address] [place], [address] CO2 [Moles/Vol] 28.0 mmol/L Normal 21.0-32.0 [facility] Comment on above: Performed By: #### L 500.4050, L500.4100, L100.0100 ####[facility] [address] [place], [address] Creatinine [Mass/Vol] 0.76 mg/dL Normal 0.55-1.02 [facility] Comment on above: Result Comment: The validity of the calculated GFR GFRAA in patients over 70 years has not been determined. Clinical correlation is essential. Performed By: #### L 500.4050, L500.4100, L100.0100 ####[facility] [address] [place], [address] EST GFR - AA 98 mL/min Normal >60 [facility] Comment on above: Result Comment: Afri can Fijian GFR Calc Performed By: #### L 500.4050, L500.4100, L100.0100 ####[facility] [address] [place], [address] GAP 4 Low 5-15 [facility] Comment on above: Performed By: #### L 500.4050, L500.4100, L100.0100 ####[facility] [address] [place], [address] GFR/1.73 sq M.predicted among non-blacks MDRD (S/P/Bld) [Vol rate/Area] 81 mL/min/{1.73_m2} Normal >60 [facility] Comment on above: Result Comment: Non- GFR Calc Performed By: #### L 500.4050, L500.4100, L100.0100 ####[facility] [address] [place], [address] Globulin (S) [Mass/Vol] 3.9 g/dL Normal 2.2-4.2 [facility] Comment on above: Performed By: #### L 500.4050, L500.4100, L100.0100 ####[facility] [address] [place], [address] Glucose [Mass/Vol] 101 mg/dL Normal 74-106 [facility] Comment on above: Result Comment: Fast ing Glucose result from 100 to 125 mg/dL suggests IMPAIRED HOMEOSTASIS per A.D.A. criteria. Performed By: #### L 500.4050, L500.4100, L100.0100 ####[facility] [address] [place], [address] Potassium [Moles/Vol] 4.1 mmol/L Normal 3.5-5.1 [facility] Comment on above: Performed By: #### L 500.4050, L500.4100, L100.0100 ####[facility] [address] [place], [address] Sodium [Moles/Vol] 140 mmol/L Normal 136-145 [facility] Comment on above: Performed By: #### L 500.4050, L500.4100, L100.0100 ####[facility] [address] [place], [address] T PROT 7.3 g/dL Normal 6.4-8.2 [facility] Comment on above: Performed By: #### L 500.4050, L500.4100, L100.0100 ####[facility] [address] [place], [address] Urea nitrogen [Mass/Vol] 14 mg/dL Normal 7-18 [facility] Comment on above: Performed By: #### L 500.4050, L500.4100, L100.0100 ####[facility] [address] [place], [address] Lipid Profileon 07-03-2024 Cholesterol [Mass/Vol] 203 mg/dL High 200 [facility] Comment on above: Result Comment: <200 mg/dL Desirable 200-240 mg/dL Borderline >240 mg/dL High Risk Performed By: #### L 500.4050, L500.4100, L100.0100 ####[facility] [address] [place], [address] Cholesterol in HDL [Mass/Vol] 79 mg/dL Normal [facility] Comment on above: Result Comment: The drugs N-Acetylcysteine and Metamizole may falsely depress this assay. Reference Range HDL <40 mg/dL Low HDL Cholesterol HDL >or= 60 mg/dL High HDL Cholesterol Performed By: #### L 500.4050, L500.4100, L100.0100 ####[facility] [address] [place], [address] Cholesterol in LDL [Mass/Vol] 114 mg/dL Normal 0-130 [facility] Comment on above: Performed By: #### L 500.4050, L500.4100, L100.0100 ####[facility] [address] [place], [address] Cholesterol in VLDL [Mass/Vol] 10 mg/dL Normal 5-40 [facility] Comment on above: Performed By: #### L 500.4050, L500.4100, L100.0100 ####[facility] [address] [place], [address] Triglyceride [Mass/Vol] 48 mg/dL Normal [facility] Comment on above: Result Comment: The drugs N-Acetylcysteine and Metamizole may falsely depress this assay. Serum Triglycerides Reference Interval Normal <150 mg/dL Borderline high 150 - 199 mg/dL High 200 - 499 mg/dL Very High > or = 500 mg/dL Performed By: #### L 500.4050, L500.4100, L100.0100 ####[facility] [address] [place], [address] Thyroid Antibodieson 024 TG AB < 1.0 Normal 0.0-0.9 [facility] Comment on above: Result Comment: Thyr oglobulin Antibody measured by [employer] It should be noted that the presence of thyroglobulin antibodies may not be pathogenic nor diagnostic, especially at very low levels. The assay precision machining instructor has found that four percent of individuals without evidence of thyroid disease or autoimmunity will have positive TgAb levels up to 4 IU/mL. Performed By: #### L 500.2500, L3300.6750, L501.9520 #### [facility] [address] [place], [address] THYR PEROX AB < 9 Normal 0-34 [facility] Comment on above: Performed By: #### L 500.2500, L3300.6750, L501.9520 #### [facility] [address] [place], [address] Basic Metabolic Profile (BMP )on 05-18-2024 BUN/CRE 16.1 RATIO Normal 10-20 [facility] Comment on above: Performed By: #### L 500.2500, L3300.6750, L501.9520 #### [facility] [address] [place], [address] CA,Total 9.4 mg/dL Normal 8.5-10.1 [facility] Comment on above: Performed By: #### L 500.2500, L3300.6750, L501.9520 #### [facility] [address] [place], [address] Chloride [Moles/Vol] 107 mmol/L Normal 98-107 [facility] Comment on above: Performed By: #### L 500.2500, L3300.6750, L501.9520 #### [facility] [address] [place], [address] CO2 [Moles/Vol] 26.0 mmol/L Normal 21.0-32.0 [facility] Comment on above: Performed By: #### L 500.2500, L3300.6750, L501.9520 #### [facility] [address] [place], [address] Creatinine [Mass/Vol] 0.87 mg/dL Normal 0.55-1.02 [facility] Comment on above: Result Comment: The validity of the calculated GFR GFRAA in patients over 70 years has not been determined. Clinical correlation is essential. Performed By: #### L 500.2500, L3300.6750, L501.9520 #### [facility] [address] [place], [address] EST GFR - AA 85 mL/min Normal >60 [facility] Comment on above: Result Comment: Afri can Fijian GFR Calc Performed By: #### L 500.2500, L3300.6750, L501.9520 #### [facility] [address] [place], [address] GAP 7 Normal 5-15 [facility] Comment on above: Performed By: #### L 500.2500, L3300.6750, L501.9520 #### [facility] [address] [place], [address] GFR/1.73 sq M.predicted among non-blacks MDRD (S/P/Bld) [Vol rate/Area] 70 mL/min/{1.73_m2} Normal >60 [facility] Comment on above: Result Comment: Non- GFR Calc Performed By: #### L 500.2500, L3300.6750, L501.9520 #### [facility] [facility] [address] [place], [address] Glucose [Mass/Vol] 99 mg/dL Normal 74-106 [facility] Comment on above: Performed By: #### L 500.2500, L3300.6750, L501.9520 #### [facility] [address] [place], [address] Potassium [Moles/Vol] 3.8 mmol/L Normal 3.5-5.1 [facility] Comment on above: Performed By: #### L 500.2500, L3300.6750, L501.9520 #### [facility] [address] [place], [address] Sodium [Moles/Vol] 140 mmol/L Normal 136-145 [facility] Comment on above: Performed By: #### L 500.2500, L3300.6750, L501.9520 #### [facility] [address] [place], [address] Urea nitrogen [Mass/Vol] 14 mg/dL Normal 7-18 [facility] Comment on above: Performed By: #### L 500.2500, L3300.6750, L501.9520 #### [facility] [address] [place], [address] Thyroid Stim Hormone (TSH)on 05-18-2024 TSH 8.050 uIU/mL High 0.358-3.74 0 [facility] Comment on above: Performed By: #### L 500.2500, L3300.6750, L501.9520 #### [facility] [address] [place], [address] M100.678on 05-01-2024 M100.678 Pending SARS-CoV-2 (COVID 19) Negative INFLUENZA A Negative INFLUENZA B Negative RSV PCR Negative Normal [facility] Comment on above: Performed By: #### M 100.678 #### [facility] [address], [address] [employer] Office Visit Reporton 03-13-2024 [employer] Office Visit Report [facility] [place] [address], [address] [place] [address] OFFICE VISIT Date of Service: 03/13/24 MR#: [id number] Acct: [id number] Name: DUSTIN DOMINGUEZ Rep #: [id number] : 1960 Provider: Dr. 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 Is patient in pain?: No Allergies No Known Allergies Allergy (Verified 03/13/24 08:58) Medications ???Medication ???Instructions ???Recorded ???Confirmed ???Type ergocalciferol (vitamin D2) 1,250 50,000 unit PO Q7D 04/26/15 03/13/24 History mcg (50,000 unit) capsule citalopram 20 mg tablet 20 mg PO DAILY 11/03/23 03/13/24 History levothyroxine 75 mcg tablet 75 mcg PO DAILY 11/03/23 03/13/24 History (Synthroid) clobetasol 0.05 % topical ointment 1 applic topical 2XW 12 weeks #45 12/19/23 03/13/24 Rx grams Post menopausal: No Patient : No : No PFSH Medical History Thyroid cancer Surgical History History of hysteroscopy H/O breast biopsy H/O bilateral breast reduction surgery History of cholecystectomy H/O thyroidectomy Family History Father Ischemic heart disease Mother Diabetes Ischemic heart disease Hypertension Atrial fibrillation Aunt Breast cancer Social History adopted: No number of children: 3 current occupational status: employed current occupation: [employer] Smoking Status: Never smoker substance use type: does not use caffeine: Yes seatbelt use: always additional social history: passed in Jul HPI 3 M MED CHECK Details: DUSTIN DOMINGUEZ is a 63 year old who presents for 3 month follow up clobetasol start. She states that she feels much better now and using the cream as directed. History Past Pregnancies Del. Date Name GA/Weeks Outcome Route Bth Weight Infant Gen Labor Lgth Anesthesia Del Locatn Provider FOB Unknown Gabe 1978 Unknown Kelly 1987 Unknown Bella 1991 Exam Const General: cooperative, healthy appearing, comfortable and no acute distress Resp Effort Inspection: normal respiratory effort Other: mild lichen sclerosus noted. no ulcerations. Skin General: no rashes or lesions noted Psych Appearance: grossly normal Speech and Movement: speech and movement normal Coding Level of Care Code Off vis,est,level 3 Diagnoses Lichen sclerosus et atrophicus L90.0 Vulvar itching L29.2 Assessment and Plan Assessment and Plan (1) Lichen sclerosus et atrophicus: Status: Acute (2) Vulvar itching: Status: Acute Comment: x2 years, not responding to hydrocortisone. previous provider recommended biospy cont with hydrocortisone and aquaphor in AM. responded to oral prednisone. to complete with physician. Plan continue clobetasol cream twice weekly now and increase to 2 times a day as needed for flairs. 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 [place] [address] OFFICE VISIT Date of Service: 12/10/23 MR#: [id number] Acct: [id number] Name: DUSTIN DOMINGUEZ Rep #: [id number] : 1960 Provider: Dr. 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 Is patient in pain?: No Allergies No Known Allergies Allergy (Verified 12/10/23 14:11) Medications ???Medication ???Instructions ???Recorded ???Confirmed ???Type ergocalciferol (vitamin D2) 1,250 50,000 unit PO Q7D 04/26/15 12/10/23 History mcg (50,000 unit) capsule citalopram 20 mg tablet 20 mg PO DAILY 11/03/23 12/10/23 History levothyroxine 75 mcg tablet 75 mcg PO DAILY 11/03/23 12/10/23 History (Synthroid) Post menopausal: No Patient : No : No PFSH PFSH Medical History Thyroid cancer Surgical History History of hysteroscopy H/O breast biopsy H/O bilateral breast reduction surgery History of cholecystectomy H/O thyroidectomy Family History Father Ischemic heart disease Mother Diabetes Ischemic heart disease Hypertension Atrial fibrillation Aunt Breast cancer Social History adopted: No number of children: 3 current occupational status: employed 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 Date Name GA/Weeks Outcome Route Bth [facility] Gabe 1978 Unknown Kelly 1987 Unknown Bella 1991 HPI VULVAR BIOPSY Details: DUSTIN DOMINGUEZ is a 63 year old who presents for vulvar biopsy. She has had burning and itching now for several months and does not think she has done anything different as far as new soaps or detergents. She is postmenopausal x 15 years. ROS Const ROS Unobtainable: All systems reviewed are unremarkable except as noted in H Resp Resp: Reports system reviewed and no additional complaints, except as documented; Denies cough GI GI: Reports as per HPI Psych Psych: Reports system reviewed and no additional complaints, except as documented Exam Const General: cooperative, healthy appearing, comfortable and no acute distress Resp Effort Inspection: normal respiratory effort Skin General: no rashes or lesions noted Psych Appearance: grossly normal Speech and Movement: speech and movement normal Office Procedures Vulvar Biopsy Time Out: Time out checklist: patient Procedure Note: Biopsies (vulva): L labia Plan: Plan: Sign in Communication: Completed Sign out Communication: Completed Gross Lesions: thin white tissue present widely across both labia extending from the clitoral bolivar to the rectum. likley consistent with lichen sclerosus. Biopsy: Area was cleansed with betadine and anesthetized with 1mL of 1: lidocaine with epinephrine. 3mm Jabier punch used to biopsy region. Hemostasis: Obtained with silver nitrate. Procedure Summary: patient tolerated the procedure well without complication. Coding Level of Care Code Off vis,est,level 4 Diagnoses Vulvar itching L29.2 Assessment and Plan Assessment and Plan (1) Vulvar itching: Status: Acute Comment: x2 years, not responding to hydrocortisone. previous provider recommended biospy cont with hydrocortisone and aquaphor in AM. responded to oral prednisone. to complete with physician. Plan: likely has lichen sclerosus - biopsy sent. if this does not look like any kind of malignancy will start clobetasol bid x 12 weeks followed by 3 days a week for maintenance. Orders: Orders Vulva Biopsy Today L29.2 - Pruritus vulvae 12/10/23 3782 Date May Quinonez Signature: Date (if applicable) CC: Normal [facility] Surgery Specimen Level Epifanio 12-10-2023 Surgery Specimen Level IV Patient Age/Sex Location Account Attending Physician DUSTIN DOMINGUEZ 63[facility] [id number] Yemi Hays Specimen: [id number] Received: 12/10/23 Status: OPAL Cole Num: [id number] Spec Type: VULVA BX Subm Dr: Dr. May Durham DO HEAD OPERATION: Vulvar biopsy PRE-OP DIAGNOSIS: Vulvar itching TISSUE SUBMITTED: Left labia MICROSCOPIC DIAGNOSIS Left labia, biopsy: Consistent with lichen sclerosus et atrophicus. / 12/15/2023 MICROSCOPIC DESCRIPTION Slides are reviewed. GROSS DESCRIPTION Received in fixative is one container labeled with the patient's name and designated Vulvar biopsy. The specimen consists of one irregular fragment of light mcgarry soft tissue that measures 0.2 x 0.2 x 0.1 cm. The specimen is totally submitted in one cassette. / 12/14/2023 TC:3 CPT:25362 Patient Age/Sex Location Account Attending Physician DUSTIN DOMINGUEZ 63/[facility] [id number] Yemi Hays Signed (signature on file) Dr. Christiano Henriquez, DO 12/15/23 1237 Normal [facility] Comment on above: Performed By: #### P SUIV #### [facility] [address] [place], [place], [id number] Thyroglobulin w/Anti-TG ABon 12-07-2023 Anti-TG AB < 1.0 Normal 0.0-0.9 [facility] Comment on above: Result Comment: Thyr oglobulin Antibody measured by [employer] Methodology It should be noted that the presence of thyroglobulin antibodies may not be pathogenic nor diagnostic, especially at very low levels. The assay precision machining instructor has found that four percent of individuals without evidence of thyroid disease or autoimmunity will have positive TgAb levels up to 4 IU/mL. Performed By: #### L 3300.6820 #### [facility] [address] [place], [place], [id number] THYROGLOB QUANT < 0.1 Low 1.5-38.5 [facility] Comment on above: Result Comment: Acco rding to the National Academy of Clinical Biochemistry, the reference interval for Thyroglobulin (TG) should be related to euthyroid patients and not for patients who underwent thyroidectomy. TG reference intervals for these patients depend on the residual mass of the thyroid tissue left after surgery. Establishing a post-operative baseline is recommended. The assay limit of quantitation is 0.1 ng/mL Thyroglobulin measured by [employer] Immunometric Assay Performed at: [employer] [id number] [employer] Furn[employer] Operator: Eduardo Sanford PhD, Phone: [phone] Performed By: #### L 3300.6820 #### [facility] [address] [place], [place], [id number] Basophil percentageOrdered B y: Delaney Magaña on 11-22-2023 Chloride [Moles/Vol] 110 mmol/L 98-107 [facility] Glucose [Mass/Vol] 92 mg/dL 74-106 [facility] Potassium [Moles/Vol] 4.0 mmol/L 3.5-5.1 [facility] Sodium [Moles/Vol] 139 mmol/L 136-145 [facility] - Chemistry and C hemistry - challengeOrdered By: Delaney Magaña on 11-22-2023 CO2 [Moles/Vol] 26.0 mmol/L 21.0-32.0 [facility] Urea nitrogen/Creatinine [Mass ratio] 26.2 mg/mg 10-20 [facility] No Panel InformationOrdered By: Delaney Magaña on 11-22-2023 Estimated GFR (MDRD) Amer 98 mL/min >60 [facility] Comment on above: GFR Calc Estimated GFR (MDRD) Non-Af Amer 81 mL/min >60 [facility] Comment on above: Non- GFR Calc Thyroglobulin Antibody < 1.0 IU/mL 0.0-0.9 [facility] Comment on above: Thyroglobulin Antibo dy measured by CoolSystemsMethodologyIt should be noted that the presence of thyroglobulinantibodies may not be pathogenic nor diagnostic, especiallyat very low levels. The assay precision machining instructor has found thatfour percent of individuals without evidence of thyroiddisease or autoimmunity will have positive TgAb levels upto 4 IU/mL. Serum or plasma calcium margarita urement (mass/volume)Ordered By: Delaney Magaña on 11-22-2023 Calcium [Mass/Vol] 9.7 mg/dL 8.5-10.1 [facility] Serum or plasma creatinine m easurement (mass/volume)Ordered By: Delaney Magaña on 11-22-2023 Creatinine [Mass/Vol] 0.76 mg/dL 0.55-1.02 [facility] Comment on above: The validity of the calculated GFR & GFRAA in patients over 70 years has not been determined. Clinical correlation is essential. Serum or plasma thyroid stim ulating hormone (TSH) measurement (units/volume)Ordered By: Delaney Magaña on 11-22-2023 TSH Qn 4.29 uIU/mL 0.358-3.74 [facility] Serum or plasma thyroperoxid ase antibody assay (units/volume)Ordered By: Delaney Magaña on 11-22-2023 TPO Ab Qn [IU]/mL 0-34 [facility] Comment on above: Performed at: [address] Director: Eduardo Sanford PhD, Phone: [phone] Serum or plasma urea nitroge n measurement (mass/volume)Ordered By: Delaney Magaña on 11-22-2023 Urea nitrogen [Mass/Vol] 20 mg/dL 7-18 [facility] Thin prep Papanicolaou smear with manual screeningOrdered By: Delaneylani Magaña on 11-22-2023 Thin prep Papanicolaou smear with manual screening 3 5-15 [facility] - Microbiology an d Antimicrobial susceptibilityOrdered By: Burton Da Silva on 10-12-2023 SARS-CoV-2 (COVID-19) RNA MYRA+probe Ql (Unsp spec) [facility] Absolute lymphocyte countOrd ered By: Burton Da Silva on 06-23-2023 Lymphocytes Auto (Unsp spec) [#/Vol] 1.41 10*3/uL 0.83-4.51 [facility] Basophil percentageOrdered B y: Burton Da Silva on 06-23-2023 Basophils/100 WBC (Bld) 0.9 % 0-1 [facility] Bilirubin [Mass/Vol] 0.70 mg/dL 0.20-1.00 [facility] Comment on above: For patients on eltr ombopag therapy, use of Dimension Clifford TBIL is not recommended. Chloride [Moles/Vol] 110 mmol/L 98-107 [facility] Cholesterol [Mass/Vol] 184 mg/dL <200 [facility] Comment on above: <200 mg/dL Desirable 200-240 mg/dL Borderline >240 mg/dL High Risk Eosinophils/100 WBC (Bld) 4.7 % 0-5 [facility] Glucose [Mass/Vol] 95 mg/dL 74-106 [facility] Neutrophils (Bld) [#/Vol] 3.6 10*3/uL 2.0-7.7 [facility] Neutrophils/100 WBC (Bld) 63.6 % 47-70 [facility] Potassium [Moles/Vol] 3.9 mmol/L 3.5-5.1 [facility] Protein [Mass/Vol] 7.4 g/dL 6.4-8.2 [facility] Sodium [Moles/Vol] 140 mmol/L 136-145 [facility] Triglyceride [Mass/Vol] 64 mg/dL <199 [facility] Comment on above: The drugs N-Acetylcy steine and Metamizole may falsely depress this assay.Serum Triglycerides Reference Interval Normal <150 mg/dL Borderline high 150 - 199 mg/dL High 200 - 499 mg/dL Very High > or = 500 mg/dL WBC (Bld) [#/Vol] 5.7 10*3/uL 4.4-11.0 [facility] Blood erythrocytes count (nu mber/volume)Ordered By: Burton Da Silva on 06-23-2023 RBC (Bld) [#/Vol] 5.33 10*6/uL 4.2-5.4 [facility] Blood hemoglobin measurement (mass/volume)Ordered By: Burton Da Silva on 06-23-2023 Hemoglobin (Bld) [Mass/Vol] 15.3 g/dL 12.0-15.0 [facility] Blood lymphocytes/100 leukoc ytesOrdered By: Burton Da Silva on 06-23-2023 Lymphocytes/100 WBC (Bld) 24.7 % 19-41 [facility] Blood monocytes/100 leukocyt esOrdered By: Burton Da Silva on 06-23-2023 Monocytes/100 WBC (Bld) 5.6 % 0-10 [facility] Blood platelet mean volumeOr dered By: Burton Da Silva on 06-23-2023 Platelet mean volume (Bld) [Entitic vol] 9.8 fL 6.2-12.0 [facility] Determination of erythrocyte mean corpuscular volume (MCV)Ordered By: Burton Da Silva on 06-23-2023 MCV (RBC) [Entitic vol] 91.6 fL 81-99 [facility] Hematocrit Auto (Bld) [Volum e fraction]Ordered By: Burton Da Silva on 06-23-2023 Hematocrit (Bld) [Volume fraction] 48.8 % 37-47 [facility] - Chemistry and C hemistry - challengeOrdered By: Burton Da Silva on 06-23-2023 ALP [Catalytic activity/Vol] 105 U/L 45-117 [facility] ALT [Catalytic activity/Vol] 32 U/L 13-56 [facility] CO2 [Moles/Vol] 25.0 mmol/L 21.0-32.0 [facility] Globulin (S) [Mass/Vol] 3.9 g/dL 2.2-4.2 [facility] Urea nitrogen/Creatinine [Mass ratio] 17.4 mg/mg 10-20 [facility] - Hematology and Cell countsOrdered By: Burton Da Silva on 06-23-2023 Erythrocyte distribution width (RBC) [Entitic vol] 45.6 fL 35.1-43.9 [facility] Erythrocyte distribution width (RBC) [Ratio] 13.5 % 11.6-14.6 [facility] Immature granulocytes/100 WBC (Bld) 0.500 % 0.0-0.9 [facility] Comment on above: IG% - Immature Granu locytes (promyelocytes, myelocytes and metamyelocytes) > 1% indicates that a LEFT SHIFT is Present. MCH (RBC) [Entitic mass] 28.7 pg 27.0-32.0 [facility] Nucleated RBC/100 WBC (Bld) [Ratio] 0 % 0-5 [facility] MCHC Auto (RBC) [Mass/Vol]Or dered By: Burton Da Silva on 06-23-2023 MCHC (RBC) [Mass/Vol] 31.4 g/dL 32-36 [facility] No Panel InformationOrdered By: Burton Da Silva on 06-23-2023 Estimated GFR (MDRD) Amer 93 mL/min >60 [facility] Comment on above: GFR Calc Estimated GFR (MDRD) Non-Af Amer 77 mL/min >60 [facility] Comment on above: Non- GFR Calc Thyroid Stimulating Hormone (TSH) 0.39 uIU/mL 0.358-3.74 [facility] Vitamin D 25-Hydroxy 78.3 ng/mL [facility] Comment on above: Vitamin D 25(OH) Sta tus Range Deficiency <20 ng/mL (50nmol/L) Insufficiency 20 - 30 ng/mL (50 - 75 nmol/L) Sufficiency 30 - 100 ng/mL (75 - 250 nmol/L) Toxicity >100 ng/mL (>250 nmol/L) Platelets bldOrdered By: Burton Da Silva on 06-23-2023 Platelets (Bld) [#/Vol] 239 10*3/uL 150-450 [facility] Serum or plasma albumin margarita urement (mass/volume)Ordered By: Burton Da Silva on 06-23-2023 Albumin [Mass/Vol] 3.5 g/dL 3.2-5.0 [facility] Serum or plasma albumin/glob ulin mass ratioOrdered By: Burton Da Silva 06-23-2023 Albumin/Globulin [Mass ratio] 0.9 {ratio} 0.9-2.4 [facility] Serum or plasma calcium margarita urement (mass/volume)Ordered By: Burton Da Silva 06-23-2023 Calcium [Mass/Vol] 9.2 mg/dL 8.5-10.1 [facility] Serum or plasma cholesterol in HDL measurement (mass/volume)Ordered By: Burton Da Silva 06-23-2023 Cholesterol in HDL [Mass/Vol] 67 mg/dL >40 [facility] Comment on above: The drugs N-Acetylcy steine and Metamizole may falsely depress this assay. Reference Range HDL <40 mg/dL Low HDL Cholesterol HDL >or= 60 mg/dL High HDL Cholesterol Serum or plasma cholesterol in VLDL measurement (mass/volume)Ordered By: Burton Da Silva 06-23-2023 Cholesterol in VLDL [Mass/Vol] 13 mg/dL 5-40 [facility] Serum or plasma creatinine m easurement (mass/volume)Ordered By: Burton Da Silva 06-23-2023 Creatinine [Mass/Vol] 0.80 mg/dL 0.55-1.02 [facility] Comment on above: The validity of the calculated GFR & GFRAA in patients over 70 years has not been determined. Clinical correlation is essential. Serum or plasma low density lipoprotein (LDL) cholesterol measurement (mass/volume)Ordered By: Burton Da Silva 06-23-2023 Cholesterol in LDL [Mass/Vol] 104 mg/dL 0-130 [facility] Serum or plasma urea nitroge n measurement (mass/volume)Ordered By: Burton Da Silva on 06-23-2023 Urea nitrogen [Mass/Vol] 14 mg/dL 7-18 [facility] Thin prep Papanicolaou smear with manual screeningOrdered By: Burton Da Silva on 06-23-2023 Thin prep Papanicolaou smear with manual screening 15 U/L 15-37 [facility] Thin prep Papanicolaou smear with manual screening 5 5-15 [facility] .GFRon 05-18-2023 GFR 71 ml/min/1.73sqm Normal [facility] ([place]) Comment on above: Result Comment: GFR Population mean for , Non- Americans Ages 20-29 = 116 mL/min/1.73 sq.m. Ages 30-39 = 107 mL/min/1.73 sq.m. Ages 40-49 = 99 mL/min/1.73 sq.m. Ages 50-59 = 93 mL/min/1.73 sq.m. Ages 60-69 = 85 mL/min/1.73 sq.m. Ages 70+ = 75 mL/min/1.73 sq.m. Chronic Kidney Disease: Less than 60 mL/min/1.73 square meters End Stage Renal Disease: Less than 15 mL/min/1.73 square meters Performed By: #### T HYAB #### [address] [address] #### TSH, VIDH, THYRORF, GFR, BMP #### [address] [address] GFR Non- 58 ml/min/1.73sqm Normal [facility] ([place]) Comment on above: Result Comment: GFR Population mean for , Non- Americans Ages 20-29 = 116 mL/min/1.73 sq.m. Ages 30-39 = 107 mL/min/1.73 sq.m. Ages 40-49 = 99 mL/min/1.73 sq.m. Ages 50-59 = 93 mL/min/1.73 sq.m. Ages 60-69 = 85 mL/min/1.73 sq.m. Ages 70+ = 75 mL/min/1.73 sq.m. Chronic Kidney Disease: Less than 60 mL/min/1.73 square meters End Stage Renal Disease: Less than 15 mL/min/1.73 square meters Performed By: #### T HYAB #### [address] [address] #### TSH, VIDH, THYRORF, GFR, BMP #### [address] [address] BMPon 05-18-2023 BUN/Creatinine Ratio 15 ratio Normal 7-27 [facility] ([place]) Comment on above: Performed By: #### T HYAB #### [place] [address] #### TSH, VIDH, THYRORF, GFR, BMP #### [address] [address] Calcium [Mass/Vol] 9.0 mg/dL Normal 8.4-10.2 [facility] ([place]) Comment on above: Performed By: #### T HYAB #### [place] [address] #### TSH, VIDH, THYRORF, GFR, BMP #### [address] [address] Chloride [Moles/Vol] 106 mmol/L Normal 98-107 [facility] ([place]) Comment on above: Performed By: #### T HYAB #### [place] [address] #### TSH, VIDH, THYRORF, GFR, BMP #### [address] [address] CO2 [Moles/Vol] 28 mmol/L Normal 23-31 [facility] ([place]) Comment on above: Performed By: #### T HYAB #### [place] [address] #### TSH, VIDH, THYRORF, GFR, BMP #### [address] [address] Creatinine [Mass/Vol] 0.97 mg/dL Normal 0.55-1.02 [facility] ([place]) Comment on above: Performed By: #### T HYAB #### [place] [address] #### TSH, VIDH, THYRORF, GFR, BMP #### [address] [address] Electrolyte Balance 9.0 mEq/L Normal 4.0-15.0 [facility] ([place]) Comment on above: Performed By: #### T HYAB #### [place] [address] #### TSH, VIDH, THYRORF, GFR, BMP #### [address] [address] Glucose [Mass/Vol] 124 mg/dL High 80-115 [facility] ([place]) Comment on above: Performed By: #### T HYAB #### [place] [address] #### TSH, VIDH, THYRORF, GFR, BMP #### [address] [address] Potassium [Moles/Vol] 4.0 mmol/L Normal 3.5-5.1 [facility] ([place]) Comment on above: Performed By: #### T HYAB #### [place] [address] #### TSH, VIDH, THYRORF, GFR, BMP #### [address] [address] Sodium [Moles/Vol] 143 mmol/L Normal 136-145 [facility] ([place]) Comment on above: Performed By: #### T HYAB #### [place] [address] #### TSH, VIDH, THYRORF, GFR, BMP #### [address] [address] Urea nitrogen [Mass/Vol] 15 mg/dL Normal 7-18 [facility] ([place]) Comment on above: Performed By: #### T HYAB #### [place] [address] #### TSH, VIDH, THYRORF, GFR, BMP #### [address] [address] THYRORFon 05-18-2023 Thyroglobulin Ab, Serum <0.9 Normal <4.0 [facility] ([place]) Comment on above: Result Comment: The Thyroglobulin Antibody test was performed using the [employer] Un[employer]el DXI paramagnetic particle chemiluminescent immunoassay method. Results obtained with different assay methods or kits cannot be used interchangeably. Performed By: [place] [address] Pig Furnace Operator: Art Jain III, M.D. CLIA#: [id number] Performed By: #### T HYAB #### [place] [address] #### TSH, VIDH, THYRORF, GFR, BMP #### [place] [id number] Thyroglobulin, Serum <0.1 Low 1.6-50.0 [facility] ([place]) Comment on above: Result Comment: The Thyroglobulin test was performed using the [employer] DXI paramagnetic particle chemiluminescent immunoassay method. Results obtained with different assay methods or kits cannot be used interchangeably. Performed By: [place] [address] Pig Furnace Operator: Art Jain III, M.D. CLIA#: [id number] Performed By: #### T HYAB #### [place] [address] #### TSH, VIDH, THYRORF, GFR, BMP #### [address] [address] VIDHon 05-18-2023 Vit. D 25-Hydroxy 42.4 ng/mL Normal [facility] ([place]) Comment on above: Result Comment: Inte rpretive Values Based on Total 25(OH) Vitamin D: Deficient <20 ng/mL Insufficient 20 - <30 ng/mL Sufficient 30-100 ng/mL Performed By: #### T HYAB #### [place] [id number] [place] [id number] #### TSH, VIDH, THYRORF, GFR, BMP #### [place] [id number] [place], [place] [address] LABORATORYOrdered By: SYSTEM SYSTEM on 05-17-2023 25-hydroxyvitamin D3 [Mass/Vol] 42.4 ng/mL Invalid Interpretation Code AO ADM SS Comment on above: Interpretive Data: I nterpretive Values Based on Total 25(OH) Vitamin D: Deficient <20 ng/mL Insufficient 20 - <30 ng/mL Sufficient 30-100 ng/mL Calcium [Mass/Vol] 9.0 mg/dL Invalid Interpretation Code 8.4 - 10.2 mg/dL AO ADM SS Chloride [Moles/Vol] 106 mmol/L Invalid Interpretation Code 98 - 107 mmol/L AO ADM SS CO2 [Moles/Vol] 28 mmol/L Invalid Interpretation Code 23 - 31 mmol/L AO ADM SS Creatinine [Mass/Vol] 0.97 mg/dL Invalid Interpretation Code 0.55 - 1.02 mg/dL AO ADM SS Electrolyte Balance 9.0 mEq/L Invalid Interpretation Code 4.0 - 15.0 mEq/L AO ADM SS GFR/1.73 sq M.predicted among blacks MDRD (S/P/Bld) [Vol rate/Area] 71 ml/min/1.73sqm Invalid Interpretation Code AO Chemistry S Comment on above: Interpretive Data: GFR Population mean for , Non- Americans Ages 20-29 = 116 mL/min/1.73 sq.m. Ages 30-39 = 107 mL/min/1.73 sq.m. Ages 40-49 = 99 mL/min/1.73 sq.m. Ages 50-59 = 93 mL/min/1.73 sq.m. Ages 60-69 = 85 mL/min/1.73 sq.m. Ages 70+ = 75 mL/min/1.73 sq.m. Chronic Kidney Disease: Less than 60 mL/min/1.73 square meters End Stage Renal Disease: Less than 15 mL/min/1.73 square meters GFR/1.73 sq M.predicted among non-blacks MDRD (S/P/Bld) [Vol rate/Area] 58 ml/min/1.73sqm Invalid Interpretation Code AO Chemistry S Comment on above: Interpretive Data: GFR Population mean for , Non- Americans Ages 20-29 = 116 mL/min/1.73 sq.m. Ages 30-39 = 107 mL/min/1.73 sq.m. Ages 40-49 = 99 mL/min/1.73 sq.m. Ages 50-59 = 93 mL/min/1.73 sq.m. Ages 60-69 = 85 mL/min/1.73 sq.m. Ages 70+ = 75 mL/min/1.73 sq.m. Chronic Kidney Disease: Less than 60 mL/min/1.73 square meters End Stage Renal Disease: Less than 15 mL/min/1.73 square meters Glucose [Mass/Vol] 124 mg/dL Invalid Interpretation Code 80 - 115 mg/dL AO ADM SS Potassium [Moles/Vol] 4.0 mmol/L Invalid Interpretation Code 3.5 - 5.1 mmol/L AO ADM SS Sodium [Moles/Vol] 143 mmol/L Invalid Interpretation Code 136 - 145 mmol/L AO ADM SS Thyroglobulin Ab IA Qn 28 unit/mL Invalid Interpretation Code 15 - 60 unit/mL AH ADM SS Comment on above: Interpretive Data: * *Note - New Reference Range in effect 20 TPO Ab IA Qn unit/mL Invalid Interpretation Code 0 - 60 unit/mL AH ADM SS Comment on above: Interpretive Data: * *Note - New Reference Range in effect 20 TSH Qn 0.23 m[IU]/L Invalid Interpretation Code 0.36 - 3.74 mcIU/mL AO ADM SS Urea nitrogen [Mass/Vol] 15 mg/dL Invalid Interpretation Code 7 - 18 mg/dL AO ADM SS Urea nitrogen/Creatinine [Mass ratio] 15 ratio Invalid Interpretation Code 7 - 27 ratio AO ADM SS THYABon 05-17-2023 anti-Thyroid Peroxidase <28 Normal 0-60 A [facility] ([place]) Comment on above: Result Comment: No te - New Reference Range in effect 20 Performed By: #### T HYAB #### [address] [address] #### TSH, VIDH, THYRORF, GFR, BMP #### [address] [address] Thyroglobulin Ab 28 units/ml Normal 15-60 [facility] ([place]) Comment on above: Result Comment: No te - New Reference Range in effect 20 Performed By: #### T HYAB #### [place] [address] #### TSH, VIDH, THYRORF, GFR, BMP #### [address] [address] TSHon 05-17-2023 TSH Qn 0.23 m[IU]/L Low 0.36-3.74 [facility] ([place]) Comment on above: Performed By: #### T HYAB #### [place] [address] #### TSH, VIDH, THYRORF, GFR, BMP #### [address] [address] Laboratory - Microbiology an d Antimicrobial susceptibilityOrdered By: Burton Da Silva on 04-29-2023 SARS-CoV-2 (COVID-19) RNA MYRA+probe Ql (Unsp spec) [facility] SARS-CoV-2 (COVID-19) RNA MYRA+probe Ql (Unsp spec) [facility] No Panel InformationOrdered By: Burton Da Silva on 04-29-2023 Influenza Types A,B Direct FA (REYNALDO) [facility] Influenza Types A,B Direct FA (REYNALDO) [facility] RSV Ag EIAOrdered By: Burton garcia on 04-29-2023 RSV Ag Immune stain Ql (Tiss) [facility] RSV Ag Immune stain Ql (Tiss) [facility] AO ENDO Anesthesia Recordon 01-29-2017 AO ENDO Anesthesia Record Normal [facility] ENDO Procedure Recordon 01-29-2017 LOCATED WITHIN [facility] ENDO Procedure Record Normal [facility] Depart Summaryon 01-29-2017 Depart Summary Normal [facility] History and Physicalon 01-29 History and Physical Normal [facility] Pear[facility] Procedure Noteon [facility] Procedure Note Normal A [facility] Outpatient Patient Summaryon 01-29-2017 Outpatient Patient Summary Normal [facility] Culture, urine Bacteria identified Cx Nom (U) Escherichia coli [facility] Work Phone: Vital Signs Date Time Vital Sign Value Performing Clinician Estela moore 11-03-2023 14:40-0400 Body height 175.[address] Burton Da Silva Work Phone: [facility] 11-03-2023 14:27-0400 Body mass index (BMI) [Ratio] 41.2 kg/m2 Dr. Burton Da Silva Work Phone: [facility] 11-03-2023 14:27-0400 Body weight 126.[address] Burton Da Silva Work Phone: [facility] 11-03-2023 14:27-0400 Diastolic blood pressure 90 mm[Hg] Dr. Burton Da Silva Work Phone: [facility] 11-03-2023 14:27-0400 Systolic blood pressure 145 mm[Hg] Dr. Burton Da Silva Work Phone: [facility] Encounters Encounter Date Encounter Type Care Provider Facility Start: 11-17-2024 End: 11-17-2024 ambulatory [facility] Facility:[facility] Start: 07-20-2024 End: 07-20-2024 ambulatory Burton Chi Jolene Facility:[facility] Start: 07-03-2024 End: 07-03-2024 ambulatory Burton Chi Jolene Facility:[facility] Start: 05-18-2024 End: 05-18-2024 ambulatory [facility] Facility:[facility] Start: 05-01-2024 End: 05-01-2024 ambulatory Burton Chi Jolene Facility:[facility] Start: 03-13-2024 End: 03-13-2024 ambulatory May Renuka Henning Facility:[facility] Start: 12-14-2023 End: 12-14-2023 ambulatory May Durham Facility:[facility] Start: 12-10-2023 End: 12-10-2023 ambulatory Burton Chi Jolene Facility:[facility] Start: 12-03-2023 End: 12-03-2023 ambulatory [facility] Facility:[facility] Start: 11-22-2023 End: 11-22-[address] Burton Da Silva Work Phone: [facility] Work Phone: Start: 11-22-2023 End: 11-22-[address] Burton Da Silva Work Phone: [facility] Work Phone: Start: 11-11-2023 End: 11-11-[address] Burton Da Silva Work Phone: [facility] Work Phone: Start: 11-11-2023 End: 11-11-[address] Burton Da Silva Work Phone: [facility] Work Phone: Start: 11-03-2023 End: 11-03-[address] Burton Da Silva Work Phone: [facility] Work Phone: Start: 10-12-2023 End: 10-12-2023 ambulatory [facility] Work Phone: Start: 10-12-2023 End: 10-12-2023 Patient encounter procedure [facility] Work Phone: Start: 06-23-2023 End: 06-23-2023 ambulatory [facility] Work Phone: Start: 06-23-2023 End: 06-23-2023 Patient encounter procedure [facility] Work Phone: Start: 05-17-2023 End: 05-18-2023 ambulatory DELANEY MAGAÑA MD Facility:[facility] Start: 05-17-2023 End: 05-17-2023 Patient encounter procedure DELANEY MAGAÑA MD [facility] Start: 04-29-2023 End: 04-29-2023 ambulatory [facility] Work Phone: Start: 04-29-2023 End: 04-29-2023 Patient encounter procedure [facility] Work Phone: Start: 06-08-2022 End: 06-08-2022 ambulatory [facility] Work Phone: Start: 06-08-2022 End: 06-08-2022 Patient encounter procedure [facility]Laboratory, Specimen Start: 08-07-2021 End: 08-07-2021 Patient encounter procedure MARIANN PORTER DO [facility] Start: 08-04-2021 End: 08-04-2021 Patient encounter procedure MARIANN PORTER DO [facility] Start: 01-29-2017 Ambulatory [facility] Facility :[facility] Procedures Date Procedure Procedure Detail Performing Clinician Start: 11-11-2023 Screening mammography D r. Burton Da Silva Work Phone: Start: 10-12-2023 SARS-CoV-2, Influenz a & RSV (PCR) Start: 04-29-2023 Coronavirus COVID-19 PCR Start: 04-29-2023 Influenza Types A,B Direct FA (REYNALDO) Start: 04-29-2023 Respiratory syncytia l virus antigen assay Cholecystectomy MARIANN BEE DO Colonoscopy MARIANN Canada DO Comment on above: 2012 History of thyroidectomy CHR MICHAEL PORTER DO Urine culture Immunizations Immunization Date Immunization Notes Care Provider Fa cility 05-02-2019 influenza virus vaccine, unspecified formulation MARIANN PORTER DO [facility] Payers Date Payer Category Payer Self-pay [id number] 2023 Unknown [id number] 2023 Unknown [id number] 2013 Private Health Insurance [id number] 1960 Unknown [id number] 2.16.8 [id number] [id number] Unknown ANTHEM [id number] Unknown [id number] 2.16.8 [id number] Unknown [id number] 2.16.8 [id number] Unknown [id number] 2.16.8 [id number] Unknown [id number] 2.16.8 [id number] Unknown [id number] 2.16.8 [id number] Unknown [id number] 2.16.8 [id number] Unknown [id number] 2.16.8 [id number] Unknown [id number] 2.16.8 [id number] Unknown [id number] 2.16.8 [id number] Social History Date Type Detail Facility Never smoked tob acco (finding) [facility] Start: 1960 Sex Assigned At Female A [facility] Start: 04-15-2020 End: 11-03-2023 Tobacco smoking status NHIS Unknown if ever smoked [facility] Start: 02-16-2020 Non-smoker [facility] Evaluation + Plan note 05-17-2023 Note Date & Type Note Facility 05-17-2023 Evaluation + Plan note Diagnostic Tests PendingThyroglobulin, Serum with Reflex 05/17/23 [facility] Evaluation + Plan note Note Date & Type Note Facility Evaluation + Plan note No data available for this section [facility] Evaluation note Note Date & Type Note Facility Evaluation note No assessment information availa ble [facility] Work Phone: Evaluation note Note Date & Type Note Facility Evaluation note Diagnosis Onset Date Genetic counseling acute Vulvar itching acute Encounter for routine gyneco logical examination noneactive [facility] Work Phone: Hospital Discharge instructions Note Date & Type Note Facility Hospital Discharge instructions No data available for this section [facility] Progress note Note Date & Type Note Facility Progress note No data available for this section [facility] Summary Purpose Family History No Family History Records Found Relationship Condition Age at Onset Recorded Date/T jana father Ischemic heart disease Unknown mother Diabetes mellitus Unknown Ischemic heart disease Unknown Hypertension Unknown Atrial fibrillation Unknown aunt Malignant neoplasm of breast Unknown Advance Directives No Advanced Directives Records Found Advance Directive Response Recorded Date/ Time Advance Directives No May 24, 2015 8:38am Living Will No February 16, 2020 9:04am Power of Editor Map No February 15 0 9:04am Advance Directive Response Recorded Date/ Time Advance Directives No May 24, 2015 9:38am Living Will No February 16, 2020 10:04am Power of Editor Map No February 15 0 10:04am Chief Complaint and Reason for Visit Chief Complaint CHILLS WITHOUT FEVER Chief Complaint CHILLS WITHOUT FEVER Annual (BAIT TIER) SCREENING Reason for Visit Genetic counseling Vulvar itching Encounter for routine gynecological examination Additional Source Comments INFORMATION SOURCE (unrecogn ized section and content) DATE CREATED AUTHOR 01/12/2018 [facility] DATE CREATED AUTHOR AUTHOR'S ORGANIZ ATION 05/19/2023 [facility] ([place]) DATE CREATED AUTHOR AUTHOR'S ORGANIZ ATION 11/27/2024 [facility] Goals (unrecognized section and content) Goals may be documented in a n alternate section Care Teams (unrecognized sec tion and content) Team Status: Active Member Role Status Dates Dr. Alem Ramon MD Family Provider Active Dr. Burton Da Silva MD Primary Care Provider Active Team Status: Inactive Member Role Status Dates Dr. Burton Da Silva MD Primary Care Provi basim, Attending Provider, Referring Provider Active Team Status: Inactive Member Role Status Dates Dr. Burton Da Silva MD Primary Care Provider, Referring Provider Active Chaya Gold CNM Attending Provider Active Team Status: Inactive Member Role Status Dates Dr. Burton Da Silva MD Primary Care Provider Active Dr. Delaney Magaña MD Attending Provider, Referring Provider Active FOR RECORDS PERTAINING TO PATIENTS WHO ARE OR HAVE BEEN ENROLLED IN A CHEMICAL DEPENDENCY/SUBSTANCEABUSE PROGRAM, SOME INFORMATION MAY BE OMITTED. This clinical summary was aggregated from multiple sources. Caution should be exercised in using it in the provision of clinical care. This summary normalizes information from multiple sources, and as a consequence, information in this document may materially change the coding, format and clinical context of patient data. In addition, data may be omitted in some cases. CLINICAL DECISIONS SHOULD BE BASED ON THE PRIMARY CLINICAL RECORDS. [facility] [employer] [facility]. provides no warranty or guarantee of the accuracy or completeness of information in this document.
--- OUTSIDE RECORDS SUMMARY | 2025-02-23 14:28 | XMS RPT_ITS | CCD ---
Author Organization [facility] Care Team Providers Care Coremaker Helper Name Role Phone EDUARDO DAMICO Unavailable Unavailable EDUARDO DAMICO Unavailable Unavailable ALEM RAMON Unavailable Unavailable JOLENE MONTES, DR PRIETO Primary Care Physician JOLENE MONTES, DR PRIETO Primary Care Physician DELANEY MAGAÑA MD Attending Unavailable JOLENE MONTES, DR PRIETO Primary Care Unavailable Dr. Burton Da Silva Chi Primary Care Provider Dr. Burton Da Silva Chi Referring Provider LISA Gold Attending Provider Jolene, Burton Chi [...] sources) Provitamin D2 Compound Start: 04-26-2015 take 48973 [IU] by mouth every week Ergocalciferol (Vitamin D2) Active 79144 UNIT PO Q7D April 26, 2015 12:00am [...] 11-26-2024 Anti-TG AB 1.4 IU/mL High 0.0-0.9 [facility] Comment on above: Result Comment: Thyr oglobulin Antibody measured by [employer] Methodology It should be noted that the presence of thyroglobulin antibodies may not be pathogenic nor diagnostic, especially at very low levels. The assay assistant finance director has found that four percent of individuals without evidence of thyroid disease or autoimmunity will have positive TgAb levels up to 4 IU/mL. Performed By: #### L 500.2500, L3300.6820, L501.9520 ####[facility] [address], [address] TG-NIELS < 2.0 Normal . [facility] Comment on above: Result Comment: This test was developed and its performance characteristics determined by [employer]. It has not been cleared or approved [...] quantitation limit is 2.0 ng/mL. Performed at: [id number] [id number] Expanding 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: Eduardo Sanford PhD, Phone: [phone] Performed at: [employer] [address] [place] [id number] Expanding 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: Thien Cardenas MD, Phone: [phone] Performed By: #### L 500.2500, L3300.6820, L501.9520 ####[facility] [address] [place], [address] Basic Metabolic Profile (BMP )on 11-17-2024 BUN/CRE 18.8 RATIO Normal 10-20 [facility] Comment on above: Performed By: #### L 500.2500, L3300.6820, L501.9520 ####[facility] [address] [place], [address] Calcium [Mass/Vol] 9.6 mg/dL Normal 7.6-11.0 [facility] Comment on above: Performed By: #### L 500.2500, L3300.6820, L501.9520 ####[facility] [address] [place], [address] Chloride [Moles/Vol] 105 mmol/L Normal 98-108 [facility] Comment on above: Performed By: #### L 500.2500, L3300.6820, L501.9520 ####[facility] [address] [place], [address] CO2 [Moles/Vol] 22.2 mmol/L Normal 21.0-32.0 [facility] Comment on above: Performed By: #### L 500.2500, L3300.6820, L501.9520 ####[facility] [address] [place], [address] Creatinine [Mass/Vol] 0.77 mg/dL Normal 0.70-1.20 [facility] Comment on above: Performed By: #### L 500.2500, L3300.6820, L501.9520 ####[facility] [address] [place], [address] GAP 11 Normal 5-15 [facility] Comment on above: Performed By: #### L 500.2500, L3300.6820, L501.9520 ####[facility] [address] [place], [address] GFR/1.73 sq M.predicted among non-blacks MDRD (S/P/Bld) [Vol rate/Area] 86 mL/min/{1.73_m2} Normal >60 [facility] Comment on above: Result Comment: mL/m in/1.73m2 CKD-EPI Creatinine Equation (2020) Performed By: #### L 500.2500, L3300.6820, L501.9520 ####[facility] [address] [place], [address] Glucose [Mass/Vol] 95 mg/dL Normal 70-99 [facility] Comment on above: Performed By: #### L 500.2500, L3300.6820, L501.9520 ####[facility] [address] [place], [address] Potassium [Moles/Vol] 4.0 mmol/L Normal 3.3-5.1 [facility] Comment on above: Performed By: #### L 500.2500, L3300.6820, L501.9520 ####[facility] [address] [place], [address] Sodium [Moles/Vol] 139 mmol/L Normal 133-145 [facility] Comment on above: Performed By: #### L 500.2500, L3300.6820, L501.9520 ####[facility] [address] [place], [address] Urea nitrogen [Mass/Vol] 15 mg/dL Normal 4-19 [facility] Comment on above: Performed By: #### L 500.2500, L3300.6820, L501.9520 ####[facility] [address] [place], [address] Thyroid Stim Hormone (TSH)on 11-17-2024 TSH 1.340 uIU/mL Normal 0.300-4.20 0 [facility] Comment on above: Performed By: #### L 500.2500, L3300.6820, L501.9520 ####[facility] [address] [facility] [address] [place], [address] Thyroglobulin w/Anti-TG ABon 07-21-2024 Anti-TG AB < 1.0 Normal 0.0-0.9 [facility] Comment on above: Result Comment: Thyr oglobulin Antibody measured by [employer] Method[employer] It should be noted that the presence of thyroglobulin antibodies may not be pathogenic nor diagnostic, especially at very low levels. The assay assistant finance director has found that four percent of individuals without evidence of thyroid disease or autoimmunity will have positive TgAb levels up to 4 IU/mL. Performed By: #### L 3300.6820, L501.9520 #### [facility] [address] [place] [place], [address] THYROGLOB QUANT < 0.1 Low 1.5-38.5 [facility] Comment on above: Result Comment: Acco rding [...] by Gracia Alia Immunometric Assay Performed at: [address] [id number] Expanding 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: Eduardo Sanford PhD, Phone: [phone] Performed By: #### L 3300.6820, L501.9520 #### [facility] [address] [place], [address] Thyroid Stim Hormone (TSH)on 07-20-2024 TSH 2.620 uIU/mL Normal 0.358-3.74 0 [facility] Comment on above: Performed By: #### L 3300.6820, L501.9520 #### [facility] [address] [place], [address] CBC W/Diff, Automatedon 12-1 Absolute Lymph 1.53 X10 3/uL Normal 0.83-4.51 [facility] Comment on above: Performed By: #### L 500.4050, L500.4100, L100.0100 ####[facility] [address] [place], [address] Absolute Neut 4.6 X10 3/uL Normal 2.0-7.7 [facility] Comment on above: Performed By: #### L 500.4050, L500.4100, L100.0100 ####[facility] [address] [place], [address] Basophils/100 WBC (Bld) 0.7 % Normal 0-1 [facility] Comment on above: Performed By: #### L 500.4050, L500.4100, L100.0100 ####[facility] [address] [place], [address] Eosinophils/100 WBC (Bld) 7.9 % High 0-5 [facility] Comment on above: Performed By: #### L 500.4050, L500.4100, L100.0100 ####[facility] [address] [place], [address] Erythrocyte distribution width (RBC) [Ratio] 13.9 % Normal 11.6-14.6 [facility] Comment on above: Performed By: #### L 500.4050, L500.4100, L100.0100 ####[facility] [address] [place], [address] Hematocrit (Bld) [Volume fraction] 44.7 % Normal 37-47 [facility] Comment on above: Performed By: #### L 500.4050, L500.4100, L100.0100 ####[facility] [address] [place], [address] Hemoglobin (Bld) [Mass/Vol] 14.1 g/dL Normal 12.0-15.0 [facility] Comment on above: Performed By: #### L 500.4050, L500.4100, L100.0100 ####[facility] [address] [place], [address] IG% 0.500 Normal 0.0-0.9 [facility] Comment on above: Result Comment: IG% - Immature Granulocytes (promyelocytes, myelocytes and metamyelocytes) > 1% indicates that a LEFT SHIFT is Present. Performed By: #### L 500.4050, L500.4100, L100.0100 ####[facility] [address] [place], [address] Lymphocytes/100 WBC (Bld) 20.9 % Normal 19-41 [facility] Comment on above: Performed By: #### L 500.4050, L500.4100, L100.0100 ####[facility] [address] [place], [address] MCH (RBC) [Entitic mass] 29.4 pg Normal 27.0-32.0 [facility] Comment on above: Performed By: #### L 500.4050, L500.4100, L100.0100 ####[facility] [address] [place], [address] MCHC (RBC) [Mass/Vol] 31.5 g/dL Low 32-36 [facility] Comment on above: Performed By: #### L 500.4050, L500.4100, L100.0100 ####[facility] [address] [place], [address] MCV (RBC) [Entitic vol] 93.1 fL Normal 81-99 [facility] Comment on above: Performed By: #### L 500.4050, L500.4100, L100.0100 ####[facility] [address] [place], [address] Monocytes/100 WBC (Bld) 7.2 % Normal 0-10 [facility] Comment on above: Performed By: #### L 500.4050, L500.4100, L100.0100 ####[facility] [address] [place], [address] Neutrophils/100 WBC (Bld) 62.8 % Normal 47-70 [facility] Comment on above: Performed By: #### L 500.4050, L500.4100, L100.0100 ####[facility] [address] [place], [address] Nucleated RBC (Bld) [#/Vol] 0 10*3/uL Normal 0-5 [facility] Comment on above: Performed By: #### L 500.4050, L500.4100, L100.0100 ####[facility] [address] [place], [address] Platelet mean volume (Bld) [Entitic vol] 9.8 fL Normal 6.2-12.0 [facility] Comment on above: Performed By: #### L 500.4050, L500.4100, L100.0100 ####[facility] [address] [place], [address] Platelets (Bld) [#/Vol] 256 10*3/uL Normal 150-450 [facility] Comment on above: Performed By: #### L 500.4050, L500.4100, L100.0100 ####[facility] [address] [place], [address] RBC (Bld) [#/Vol] 4.80 10*6/uL Normal 4.2-5.4 [facility] Comment on above: Performed By: #### L 500.4050, L500.4100, L100.0100 ####[facility] [address] [place], [address] RDW SD 47.6 fl High 35.1-43.9 [facility] Comment on above: Performed By: #### L 500.4050, L500.4100, L100.0100 ####[facility] [address] [place], [address] WBC (Bld) [#/Vol] 7.3 10*3/uL Normal 4.4-11.0 [facility] Comment on above: Performed By: #### L 500.4050, L500.4100, L100.0100 ####[facility] [address] [place], [address] Comprehensive Metabolic Prof [facility] 07-03-2024 Albumin [Mass/Vol] 3.4 g/dL Normal 3.2-5.0 [facility] Comment on above: Performed By: #### L 500.4050, L500.4100, L100.0100 ####[facility] [address] [place], [address] Albumin/Globulin [Mass ratio] 0.9 {ratio} Normal 0.9-2.4 [facility] Comment on above: Performed By: #### L 500.4050, L500.4100, L100.0100 ####[facility] [address] [place], [address] ALK P 102 U/L Normal 45-117 [facility] Comment on above: Performed By: #### L 500.4050, L500.4100, L100.0100 ####[facility] [address] [place], [address] ALT [Catalytic activity/Vol] 23 U/L Normal 13-56 [facility] Comment on above: Performed By: #### L 500.4050, L500.4100, L100.0100 ####[facility] [address] [place], [address] AST [Catalytic activity/Vol] 17 U/L Normal 15-37 [facility] Comment on above: Performed By: #### L 500.4050, L500.4100, L100.0100 ####[facility] [address] [place], [address] Bilirubin [Mass/Vol] 0.70 mg/dL Normal 0.20-1.00 [facility] Comment on above: Result Comment: For patients on eltrombopag therapy, use of Dimension [place] TBIL is not recommended. Performed By: #### L 500.4050, L500.4100, L100.0100 ####[facility] [address] [place], [address] BUN/CRE 18.3 RATIO Normal 10-20 [facility] Comment on above: Performed By: #### L 500.4050, L500.4100, L100.0100 ####[facility] [address] [place], [address] CA,Total 9.3 mg/dL Normal 8.5-10.1 [facility] Comment on above: Performed By: #### L 500.4050, L500.4100, L100.0100 ####[facility] [address] [place], [address] Chloride [Moles/Vol] 108 mmol/L High 98-107 [facility] Comment on above: Performed By: #### L 500.4050, L500.4100, L100.0100 ####[facility] [address] [place], [address] CO2 [Moles/Vol] 28.0 mmol/L Normal 21.0-32.0 [facility] Comment on above: Performed By: #### L 500.4050, L500.4100, L100.0100 ####[facility] [address] [place], [address] Creatinine [Mass/Vol] 0.76 mg/dL Normal 0.55-1.02 [facility] Comment on above: Result Comment: The validity of the calculated GFR GFRAA in patients over 70 years has not been determined. Clinical correlation is essential. Performed By: #### L 500.4050, L500.4100, L100.0100 ####[facility] [address] [place], [address] EST GFR - AA 98 mL/min Normal >60 [facility] Comment on above: Result Comment: Afri can Jamaican GFR Calc Performed By: #### L 500.4050, L500.4100, L100.0100 ####[facility] [address] [place], [address] GAP 4 Low 5-15 [facility] Comment on above: Performed By: #### L 500.4050, L500.4100, L100.0100 ####[facility] [address] [place], [address] GFR/1.73 sq M.predicted among non-blacks MDRD (S/P/Bld) [Vol rate/Area] 81 mL/min/{1.73_m2} Normal >60 [facility] Comment on above: Result Comment: Non- GFR Calc Performed By: #### L 500.4050, L500.4100, L100.0100 ####[facility] [address] [place], [address] Globulin (S) [Mass/Vol] 3.9 g/dL Normal 2.2-4.2 [facility] Comment on above: Performed By: #### L 500.4050, L500.4100, L100.0100 ####[facility] [address] [place], [address] Glucose [Mass/Vol] 101 mg/dL Normal 74-106 [facility] Comment on above: Result Comment: Fast ing Glucose result from 100 to 125 mg/dL suggests IMPAIRED HOMEOSTASIS per A.D.A. criteria. Performed By: #### L 500.4050, L500.4100, L100.0100 ####[facility] [address] [place], [address] Potassium [Moles/Vol] 4.1 mmol/L Normal 3.5-5.1 [facility] Comment on above: Performed By: #### L 500.4050, L500.4100, L100.0100 ####[facility] [address] [place], [address] Sodium [Moles/Vol] 140 mmol/L Normal 136-145 [facility] Comment on above: Performed By: #### L 500.4050, L500.4100, L100.0100 ####[facility] [address] [place], [address] T PROT 7.3 g/dL Normal 6.4-8.2 [facility] Comment on above: Performed By: #### L 500.4050, L500.4100, L100.0100 ####[facility] [address] [place], [address] Urea nitrogen [Mass/Vol] 14 mg/dL Normal 7-18 [facility] Comment on above: Performed By: #### L 500.4050, L500.4100, L100.0100 ####[facility] [address] [place], [address] Lipid Profileon 07-03-2024 Cholesterol [Mass/Vol] 203 mg/dL High 200 [facility] Comment on above: Result Comment: <200 mg/dL Desirable 200-240 mg/dL Borderline >240 mg/dL High Risk Performed By: #### L 500.4050, L500.4100, L100.0100 ####[facility] [address] [place], [address] Cholesterol in HDL [Mass/Vol] 79 mg/dL Normal [facility] Comment on above: Result Comment: The drugs N-Acetylcysteine and Metamizole may falsely depress this assay. Reference Range HDL <40 mg/dL Low HDL Cholesterol HDL >or= 60 mg/dL High HDL Cholesterol Performed By: #### L 500.4050, L500.4100, L100.0100 ####[facility] [address] [place], [address] Cholesterol in LDL [Mass/Vol] 114 mg/dL Normal 0-130 [facility] Comment on above: Performed By: #### L 500.4050, L500.4100, L100.0100 ####[facility] [address] [place], [address] Cholesterol in VLDL [Mass/Vol] 10 mg/dL Normal 5-40 [facility] Comment on above: Performed By: #### L 500.4050, L500.4100, L100.0100 ####[facility] [address] [place], [address] Triglyceride [Mass/Vol] 48 mg/dL Normal [facility] Comment on above: Result Comment: The drugs N-Acetylcysteine and Metamizole may falsely depress this assay. Serum Triglycerides Reference Interval Normal <150 mg/dL Borderline high 150 - 199 mg/dL High 200 - 499 mg/dL Very High > or = 500 mg/dL Performed By: #### L 500.4050, L500.4100, L100.0100 ####[facility] [address] [place], [address] Thyroid Antibodieson 024 TG AB < 1.0 Normal 0.0-0.9 [facility] Comment on above: Result Comment: Thyr oglobulin Antibody measured by [employer] It should be noted that the presence of thyroglobulin antibodies may not be pathogenic nor diagnostic, especially at very low levels. The assay assistant finance director has found that four percent of individuals without evidence of thyroid disease or autoimmunity will have positive TgAb levels up to 4 IU/mL. Performed By: #### L 500.2500, L3300.6750, L501.9520 #### [facility] [address] [place], [address] THYR PEROX AB < 9 Normal 0-34 [facility] Comment on above: Performed By: #### L 500.2500, L3300.6750, L501.9520 #### [facility] [address] [place], [address] Basic Metabolic Profile (BMP )on 05-18-2024 BUN/CRE 16.1 RATIO Normal 10-20 [facility] Comment on above: Performed By: #### L 500.2500, L3300.6750, L501.9520 #### [facility] [address] [place], [address] CA,Total 9.4 mg/dL Normal 8.5-10.1 [facility] Comment on above: Performed By: #### L 500.2500, L3300.6750, L501.9520 #### [facility] [address] [place], [address] Chloride [Moles/Vol] 107 mmol/L Normal 98-107 [facility] Comment on above: Performed By: #### L 500.2500, L3300.6750, L501.9520 #### [facility] [address] [place], [address] CO2 [Moles/Vol] 26.0 mmol/L Normal 21.0-32.0 [facility] Comment on above: Performed By: #### L 500.2500, L3300.6750, L501.9520 #### [facility] [address] [place], [address] Creatinine [Mass/Vol] 0.87 mg/dL Normal 0.55-1.02 [facility] Comment on above: Result Comment: The validity of the calculated GFR GFRAA in patients over 70 years has not been determined. Clinical correlation is essential. Performed By: #### L 500.2500, L3300.6750, L501.9520 #### [facility] [address] [place], [address] EST GFR - AA 85 mL/min Normal >60 [facility] Comment on above: Result Comment: Afri can Jamaican GFR Calc Performed By: #### L 500.2500, L3300.6750, L501.9520 #### [facility] [address] [place], [address] GAP 7 Normal 5-15 [facility] Comment on above: Performed By: #### L 500.2500, L3300.6750, L501.9520 #### [facility] [address] [place], [address] GFR/1.73 sq M.predicted among non-blacks MDRD (S/P/Bld) [Vol rate/Area] 70 mL/min/{1.73_m2} Normal >60 [facility] Comment on above: Result Comment: Non- GFR Calc Performed By: #### L 500.2500, L3300.6750, L501.9520 #### [facility] [address] [place], [address] Glucose [Mass/Vol] 99 mg/dL Normal 74-106 [facility] Comment on above: Performed By: #### L 500.2500, L3300.6750, L501.9520 #### [facility] [address] [place], [address] Potassium [Moles/Vol] 3.8 mmol/L Normal 3.5-5.1 [facility] Comment on above: Performed By: #### L 500.2500, L3300.6750, L501.9520 #### [facility] [address] [place], [address] Sodium [Moles/Vol] 140 mmol/L Normal 136-145 [facility] Comment on above: Performed By: #### L 500.2500, L3300.6750, L501.9520 #### [facility] [address] [place], [address] Urea nitrogen [Mass/Vol] 14 mg/dL Normal 7-18 [facility] Comment on above: Performed By: #### L 500.2500, L3300.6750, L501.9520 #### [facility] [address] [place], [address] Thyroid Stim Hormone (TSH)on 05-18-2024 TSH 8.050 uIU/mL High 0.358-3.74 0 [facility] Comment on above: Performed By: #### L 500.2500, L3300.6750, L501.9520 #### [facility] [address] [place], [address] M100.678on 05-01-2024 M100.678 Pending SARS-CoV-2 (COVID 19) Negative INFLUENZA A Negative INFLUENZA B Negative RSV PCR Negative Normal [facility] Comment on above: Performed By: #### M 100.678 #### [facility] [address] [place], [address] Banana Expert Office Visit Reporton 03-13-2024 Banana Expert Office Visit Report [facility] [address], [address] [place] [address] OFFICE VISIT Date of Service: 03/13/24 MR#: [id number] Acct: [id number] Name: DUSTIN DOMINGUEZ Rep #: [id number] : 1960 Provider: Dr. May Noyola DO Age/Sex: 63/F Location[place] [facility] [place]: Signed Intake Vital Signs 12/10/23 14:14 03/13/24 08:58 03/13/24 09:00 Height 5 ft 9 in 5 ft 9 in 5 ft 9 in Weight: 273 lb BMI 40.3 BP 162/84 H Intake Visit Reasons: 3 M MED CHECK Hospital Receptionist Required: No Is patient in pain?: No [...] Lgth Anesthesia Del Locatn Provider FOB Unknown Gbae 1978 Unknown Kelly 1987 Unknown Bella 1991 [...] Quinonez Signature: Date (if applicable) CC: Normal [facility] Banana Expert Office Visit Reporton 12-10-2023 Banana Expert Office Visit Report [facility] [address] [place] [address] OFFICE VISIT Date of Service: 12/10/23 MR#: [id number] Acct: [id number] Name: DUSTIN DOMINGUEZ Rep #: [id number] : 1960 Provider: Dr. 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 [...] submitted in one cassette. / 12/14/2023 TC:3 CPT:64600 Patient Age/Sex Location Account Attending Physician DUSTIN DOMINGUEZ 63/[facility] [id number] Yemi Hays Signed (signature on file) Dr. Christiano Henriquez, DO 12/15/23 1237 Normal [facility] Comment on above: Performed By: #### P SUIV #### [facility] Laboratory [address] [place], [place], [id number] Thyroglobulin w/Anti-TG ABon 12-07-2023 Anti-TG AB < 1.0 Normal 0.0-0.9 [facility] Comment on above: Result Comment: Thyr oglobulin Antibody measured by Gracia Alia Methodology It should be noted that the presence of thyroglobulin antibodies may not be pathogenic nor diagnostic, especially at very low levels. The assay assistant finance director has found that four percent of individuals without evidence of thyroid disease or autoimmunity will have positive TgAb levels up to 4 IU/mL. Performed By: #### L 3300.6820 #### [facility] Laboratory [address] [place], [place], [id number] THYROGLOB QUANT < 0.1 Low 1.5-38.5 [facility] Comment on above: Result Comment: Acco rding [...] by Gracia Alia Immunometric Assay Performed at: [id number] [id number] Expanding 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: Eduardo Sanford PhD, Phone: [phone] Performed By: #### L [id number] #### [facility] Laboratory [address] [place], [place], [id number] Basophil percentageOrdered B y: Delaney Magaña on 11-22-2023 Chloride [Moles/Vol] 110 mmol/L 98-107 [facility] Glucose [Mass/Vol] 92 mg/dL 74-106 [facility] Potassium [Moles/Vol] 4.0 mmol/L 3.5-5.1 [facility] Sodium [Moles/Vol] 139 mmol/L 136-145 [facility] Laboratory - Chemistry and C hemistry - challengeOrdered By: Delaney Magaña on 11-22-2023 CO2 [Moles/Vol] 26.0 mmol/L 21.0-32.0 [facility] Urea nitrogen/Creatinine [Mass ratio] 26.2 mg/mg 10-20 [facility] No Panel InformationOrdered By: Delaney Magaña on 11-22-2023 Estimated GFR (MDRD) Amer 98 mL/min >60 [facility] Comment on above: GFR Calc Estimated GFR (MDRD) Non-Af Amer 81 mL/min >60 [facility] Comment on above: Non- GFR Calc Thyroglobulin Antibody < 1.0 IU/mL 0.0-0.9 [facility] Comment on above: Thyroglobulin Antibo dy measured by KissMyAdsMethodologyIt should be noted that the presence of thyroglobulinantibodies may not be pathogenic nor diagnostic, especiallyat very low levels. The assay assistant finance director has found thatfour percent of individuals without evidence of thyroiddisease or autoimmunity will have positive TgAb levels upto 4 IU/mL. Serum or plasma calcium margarita urement (mass/volume)Ordered By: Delaney Magaña on 11-22-2023 Calcium [Mass/Vol] 9.7 mg/dL 8.5-10.1 [facility] Serum or plasma creatinine m easurement (mass/volume)Ordered By: Delaney aMgaña on 11-22-2023 Creatinine [Mass/Vol] 0.76 mg/dL 0.55-1.02 [facility] Comment on above: The validity of the calculated GFR & GFRAA in patients over 70 years has not been determined. Clinical correlation is essential. Serum or plasma thyroid stim ulating hormone (TSH) measurement (units/volume)Ordered By: Delaney Magaña on 11-22-2023 TSH Qn 4.29 uIU/mL 0.358-3.74 [facility] Serum or plasma thyroperoxid ase antibody assay (units/volume)Ordered By: Delaney Magaña on 11-22-2023 TPO Ab Qn [IU]/mL 0-34 [facility] Comment on above: Performed at: [address] Director: Eduardo Sanford PhD, Phone: [phone] Serum or plasma urea nitroge n measurement (mass/volume)Ordered By: Delaney Magaña on 11-22-2023 Urea nitrogen [Mass/Vol] 20 mg/dL 7-18 [facility] Thin prep Papanicolaou smear with manual screeningOrdered By: Delaneylani Magaña on 11-22-2023 Thin prep Papanicolaou smear with manual screening 3 5-15 [facility] Laboratory - Microbiology an d Antimicrobial susceptibilityOrdered By: Burton Da Silva on 10-12-2023 SARS-CoV-2 (COVID-19) RNA MYRA+probe Ql (Unsp spec) [facility] Absolute lymphocyte countOrd ered By: Burton Da Silva on 06-23-2023 Lymphocytes Auto (Unsp spec) [#/Vol] 1.41 10*3/uL 0.83-4.51 [facility] Basophil percentageOrdered B y: Burton Da Silva on 06-23-2023 Basophils/100 WBC (Bld) 0.9 % 0-1 [facility] Bilirubin [Mass/Vol] 0.70 mg/dL 0.20-1.00 [facility] Comment on above: For patients on eltr ombopag therapy, use of Dimension [place] TBIL is not recommended. Chloride [Moles/Vol] 110 mmol/L 98-107 [facility] Cholesterol [Mass/Vol] 184 mg/dL <200 [facility] Comment on above: <200 mg/dL Desirable 200-240 mg/dL Borderline >240 mg/dL High Risk Eosinophils/100 WBC (Bld) 4.7 % 0-5 [facility] Glucose [Mass/Vol] 95 mg/dL 74-106 [facility] Neutrophils (Bld) [#/Vol] 3.6 10*3/uL 2.0-7.7 [facility] Neutrophils/100 WBC (Bld) 63.6 % 47-70 [facility] Potassium [Moles/Vol] 3.9 mmol/L 3.5-5.1 [facility] Protein [Mass/Vol] 7.4 g/dL 6.4-8.2 [facility] Sodium [Moles/Vol] 140 mmol/L 136-145 [facility] Triglyceride [Mass/Vol] 64 mg/dL <199 [facility] Comment on above: The drugs N-Acetylcy steine and Metamizole may falsely depress this assay.Serum Triglycerides Reference Interval Normal <150 mg/dL Borderline high 150 - 199 mg/dL High 200 - 499 mg/dL Very High > or = 500 mg/dL WBC (Bld) [#/Vol] 5.7 10*3/uL 4.4-11.0 [facility] Blood erythrocytes count (nu mber/volume)Ordered By: Burton Da Silva on 06-23-2023 RBC (Bld) [#/Vol] 5.33 10*6/uL 4.2-5.4 [facility] Blood hemoglobin measurement (mass/volume)Ordered By: Burton Da Silva on 06-23-2023 Hemoglobin (Bld) [Mass/Vol] 15.3 g/dL 12.0-15.0 [facility] Blood lymphocytes/100 leukoc ytesOrdered By: Burton Da Silva on 06-23-2023 Lymphocytes/100 WBC (Bld) 24.7 % 19-41 [facility] Blood monocytes/100 leukocyt esOrdered By: Burton Da Silva on 06-23-2023 Monocytes/100 WBC (Bld) 5.6 % 0-10 [facility] Blood platelet mean volumeOr dered By: Burton Da Silva on 06-23-2023 Platelet mean volume (Bld) [Entitic vol] 9.8 fL 6.2-12.0 [facility] Determination of erythrocyte mean corpuscular volume (MCV)Ordered By: Burton Da Silva on 06-23-2023 MCV (RBC) [Entitic vol] 91.6 fL 81-99 [facility] Hematocrit Auto (Bld) [Volum e fraction]Ordered By: Burton Da Silva on 06-23-2023 Hematocrit (Bld) [Volume fraction] 48.8 % 37-47 [facility] Laboratory - Chemistry and C hemistry - challengeOrdered By: Burton Da Silva on 06-23-2023 ALP [Catalytic activity/Vol] 105 U/L 45-117 [facility] ALT [Catalytic activity/Vol] 32 U/L 13-56 [facility] CO2 [Moles/Vol] 25.0 mmol/L 21.0-32.0 [facility] Globulin (S) [Mass/Vol] 3.9 g/dL 2.2-4.2 [facility] Urea nitrogen/Creatinine [Mass ratio] 17.4 mg/mg 10-20 [facility] Laboratory - Hematology and Cell countsOrdered By: Burton Da Silva on 06-23-2023 Erythrocyte distribution width (RBC) [Entitic vol] 45.6 fL 35.1-43.9 [facility] Erythrocyte distribution width (RBC) [Ratio] 13.5 % 11.6-14.6 [facility] Immature granulocytes/100 WBC (Bld) 0.500 % 0.0-0.9 [facility] Comment on above: IG% - Immature Granu locytes (promyelocytes, myelocytes and metamyelocytes) > 1% indicates that a LEFT SHIFT is Present. MCH (RBC) [Entitic mass] 28.7 pg 27.0-32.0 [facility] Nucleated RBC/100 WBC (Bld) [Ratio] 0 % 0-5 [facility] MCHC Auto (RBC) [Mass/Vol]Or dered By: Burton Da Silva on 06-23-2023 MCHC (RBC) [Mass/Vol] 31.4 g/dL 32-36 [facility] No Panel InformationOrdered By: Burton Da Silva on 06-23-2023 Estimated GFR (MDRD) Amer 93 mL/min >60 [facility] Comment on above: GFR Calc Estimated GFR (MDRD) Non-Af Amer 77 mL/min >60 [facility] Comment on above: Non- GFR Calc Thyroid Stimulating Hormone (TSH) 0.39 uIU/mL 0.358-3.74 [facility] Vitamin D 25-Hydroxy 78.3 ng/mL [facility] Comment on above: Vitamin D 25(OH) Sta tus Range Deficiency <20 ng/mL (50nmol/L) Insufficiency 20 - 30 ng/mL (50 - 75 nmol/L) Sufficiency 30 - 100 ng/mL (75 - 250 nmol/L) Toxicity >100 ng/mL (>250 nmol/L) Platelets bldOrdered By: Burton Da Silva on 06-23-2023 Platelets (Bld) [#/Vol] 239 10*3/uL 150-450 [facility] Serum or plasma albumin margarita urement (mass/volume)Ordered By: Burton Da Silva on 06-23-2023 Albumin [Mass/Vol] 3.5 g/dL 3.2-5.0 [facility] Serum or plasma albumin/glob ulin mass ratioOrdered By: Burton Da Silva 06-23-2023 Albumin/Globulin [Mass ratio] 0.9 {ratio} 0.9-2.4 [facility] Serum or plasma calcium margarita urement (mass/volume)Ordered By: Burton Da Silva 06-23-2023 Calcium [Mass/Vol] 9.2 mg/dL 8.5-10.1 [facility] Serum or plasma cholesterol in HDL measurement (mass/volume)Ordered By: Burton Da Silva 06-23-2023 Cholesterol in HDL [Mass/Vol] 67 mg/dL >40 [facility] Comment on above: The drugs N-Acetylcy steine and Metamizole may falsely depress this assay. Reference Range HDL <40 mg/dL Low HDL Cholesterol HDL >or= 60 mg/dL High HDL Cholesterol Serum or plasma cholesterol in VLDL measurement (mass/volume)Ordered By: Burton Da Silva 06-23-2023 Cholesterol in VLDL [Mass/Vol] 13 mg/dL 5-40 [facility] Serum or plasma creatinine m easurement (mass/volume)Ordered By: Burton Da Silva 06-23-2023 Creatinine [Mass/Vol] 0.80 mg/dL 0.55-1.02 [facility] Comment on above: The validity of the calculated GFR & GFRAA in patients over 70 years has not been determined. Clinical correlation is essential. Serum or plasma low density lipoprotein (LDL) cholesterol measurement (mass/volume)Ordered By: Burton Da Silva 06-23-2023 Cholesterol in LDL [Mass/Vol] 104 mg/dL 0-130 [facility] Serum or plasma urea nitroge n measurement (mass/volume)Ordered By: Burton Da Silva on 06-23-2023 Urea nitrogen [Mass/Vol] 14 mg/dL 7-18 [facility] Thin prep Papanicolaou smear with manual screeningOrdered By: Burton Da Silva on 06-23-2023 Thin prep Papanicolaou smear with manual screening 15 U/L 15-37 [facility] Thin prep Papanicolaou smear with manual screening 5 5-15 [facility] .GFRon 05-18-2023 GFR 71 ml/min/1.73sqm Normal Counts Include [address] [facility] At [facility] ([place]) Comment on above: Result Comment: GFR Population [...] meters Performed By: #### T HYAB #### [address] [address] #### TSH, VIDH, THYRORF, GFR, BMP #### [address] [address] GFR Non- 58 ml/min/1.73sqm Normal Counts Include [address] [facility] ([place] Comment on above: Result Comment: GFR Population [...] meters Performed By: #### T HYAB #### [address] [address] #### TSH, VIDH, THYRORF, GFR, BMP #### [address] [address] BMPon 05-18-2023 BUN/Creatinine Ratio 15 ratio Normal 7-27 [facility] ([place]) Comment on above: Performed By: #### T HYAB #### [place] [address] #### TSH, VIDH, THYRORF, GFR, BMP #### [address] [address] Calcium [Mass/Vol] 9.0 mg/dL Normal 8.4-10.2 [facility] ([place]) Comment on above: Performed By: #### T HYAB #### [place] [address] #### TSH, VIDH, THYRORF, GFR, BMP #### [address] [address] Chloride [Moles/Vol] 106 mmol/L Normal 98-107 [facility] ([place] Comment on above: Performed By: #### T HYAB #### [place] [address] #### TSH, VIDH, THYRORF, GFR, BMP #### [address] [address] CO2 [Moles/Vol] 28 mmol/L Normal 23-31 Counts Include [address] [facility] ([place] Comment on above: Performed By: #### T HYAB #### [place] [address] #### TSH, VIDH, THYRORF, GFR, BMP #### [address] [address] Creatinine [Mass/Vol] 0.97 mg/dL Normal 0.55-1.02 [facility] ([place]) Comment on above: Performed By: #### T HYAB #### [place] [address] #### TSH, VIDH, THYRORF, GFR, BMP #### [address] [address] Electrolyte Balance 9.0 mEq/L Normal 4.0-15.0 [facility] ([place]) Comment on above: Performed By: #### T HYAB #### [place] [address] #### TSH, VIDH, THYRORF, GFR, BMP #### [address] [address] Glucose [Mass/Vol] 124 mg/dL High 80-115 [facility] Comment on above: Performed By: #### T HYAB #### [place] [address] #### TSH, VIDH, THYRORF, GFR, BMP #### [address] [address] Potassium [Moles/Vol] 4.0 mmol/L Normal 3.5-5.1 [facility] ([place]) Comment on above: Performed By: #### T HYAB #### [place] [address] #### TSH, VIDH, THYRORF, GFR, BMP #### [address] [address] Sodium [Moles/Vol] 143 mmol/L Normal 136-145 [facility] [place] Comment on above: Performed By: #### T HYAB #### [place] [address] #### TSH, VIDH, THYRORF, GFR, BMP #### [address] [address] Urea nitrogen [Mass/Vol] 15 mg/dL Normal 7-18 Counts Include [address] [facility] ([place] Comment on above: Performed By: #### T HYAB #### [place] [address] #### TSH, VIDH, THYRORF, GFR, BMP #### [address] [address] THYRORFon 05-18-2023 Thyroglobulin Ab, Serum <0.9 Normal <4.0 [facility] ([place]) Comment on above: Result Comment: The Thyroglobulin Antibody test was performed using the [employer] Unicel DXI paramagnetic particle chemiluminescent immunoassay method. Results obtained with different assay methods or kits cannot be used interchangeably. Performed By: [place] [address] Expanding 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: Art Jain III, M.D. CLIA#: [id number] Performed By: #### T HYAB #### [place] [address] #### TSH, VIDH, THYRORF, GFR, BMP #### [place] [id number] Thyroglobulin, Serum <0.1 Low 1.6-50.0 [facility] ([place]) Comment on above: Result Comment: The Thyroglobulin test was performed using the [employer] Unicel DXI paramagnetic particle chemiluminescent immunoassay method. Results obtained with different assay methods or kits cannot be used interchangeably. Performed By: [place] [address] Expanding 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: Art Jain III, M.D. CLIA#: [id number] Performed By: #### T HYAB #### [place] [address] #### TSH, VIDH, THYRORF, GFR, BMP #### [address] [address] VIDHon 05-18-2023 Vit. D 25-Hydroxy 42.4 ng/mL Normal Counts Include [address] [facility] At [facility] ([place]) Comment on above: Result Comment: Inte rpretive Values Based on Total 25(OH) Vitamin D: Deficient <20 ng/mL Insufficient 20 - <30 ng/mL Sufficient 30-100 ng/mL Performed By: #### T HYAB #### [place] [address] [address] [place] [address] #### TSH, VIDH, THYRORF, GFR, BMP #### [place] [id number] [place], [place] [address] LABORATORYOrdered By: SYSTEM SYSTEM on 05-17-2023 25-hydroxyvitamin [...] 05-17-2023 anti-Thyroid Peroxidase <28 Normal 0-60 [facility] ([place]) Comment on above: Result Comment: No te - New Reference Range in effect 20 Performed By: #### T HYAB #### [address] [address] #### TSH, VIDH, THYRORF, GFR, BMP #### [address] [address] Thyroglobulin Ab 28 units/ml Normal 15-60 Counts Include [address] [facility] ([place]) Comment on above: Result Comment: No te - New Reference Range in effect 20 Performed By: #### T HYAB #### [place] [address] #### TSH, VIDH, THYRORF, GFR, BMP #### [address] [address] TSHon 05-17-2023 TSH Qn 0.23 m[IU]/L Low 0.36-3.74 Counts Include [address] [facility] ([place]) Comment on above: Performed By: #### T HYAB #### [place] [address] #### TSH, VIDH, THYRORF, GFR, BMP #### [address] [address] Laboratory - Microbiology an d Antimicrobial susceptibilityOrdered By: Burton Da Silva on 04-29-2023 SARS-CoV-2 (COVID-19) RNA MYRA+probe Ql (Unsp spec) [facility] SARS-CoV-2 (COVID-19) RNA MYAR+probe Ql (Unsp spec) [facility] No Panel InformationOrdered By: Burton Da Silva on 04-29-2023 Influenza Types A,B Direct FA (REYNALDO) [facility] Influenza Types A,B Direct FA (REYNALDO) [facility] RSV Ag EIAOrdered By: Burton garcia on 04-29-2023 RSV Ag Immune stain Ql (Tiss) [facility] RSV Ag Immune stain Ql (Tiss) [facility] AO ENDO Anesthesia Recordon 01-29-2017 AO ENDO Anesthesia Record Normal [facility] ENDO Procedure Recordon 01-29-2017 [facility] ENDO Procedure Record Normal Counts Include [address] [facility] Depart Summaryon 01-29-2017 Depart Summary Normal Counts Include [address] [facility] At [facility] History and Physicalon 01-29 History and Physical Normal [facility] [place] Procedure Noteon [facility] Procedure Note Normal [facility] Outpatient Patient Summaryon 01-29-2017 Outpatient Patient Summary Normal Counts Include [address] [facility] Culture, urine Bacteria identified Cx Nom (U) Escherichia coli [facility] Work Phone: Vital Signs Date Time Vital Sign Value Performing Clinician Estela moore 11-03-2023 14:40-0400 Body height 175.[address] Burton Da Silva Work Phone: [facility] 11-03-2023 14:27-0400 Body mass index (BMI) [Ratio] 41.2 kg/m2 Dr. Burton Da Silva Work Phone: [facility] 11-03-2023 14:27-0400 Body weight 126.[address] Burton Da Silva Work Phone: [facility] 11-03-2023 14:27-0400 Diastolic blood pressure 90 mm[Hg] Dr. Burton Da Silva Work Phone: [facility] 11-03-2023 14:27-0400 Systolic blood pressure 145 mm[Hg] Dr. Burton Da Silva Work Phone: [facility] Encounters Encounter Date Encounter Type Care Provider Facility Start: 11-17-2024 End: 11-17-2024 ambulatory [facility] Facility:[facility] Start: 07-20-2024 End: 07-20-2024 ambulatory Burton Chi Jolene Facility:[facility] Start: 07-03-2024 End: 07-03-2024 ambulatory Burton Chi Jolene Facility:[facility] Start: 05-18-2024 End: 05-18-2024 ambulatory [facility] Facility:[facility] Start: 05-01-2024 End: 05-01-2024 ambulatory Burton Chi Jolene Facility:[facility] Start: 03-13-2024 End: 03-13-2024 ambulatory May Renuka Henning Facility:[facility] Start: 12-14-2023 End: 12-14-2023 ambulatory May Durham Facility:[facility] Start: 12-10-2023 End: 12-10-2023 ambulatory Burton Chi Jolene Facility:[facility] Start: 12-03-2023 End: 12-03-2023 ambulatory [facility] Facility:[facility] Start: 11-22-2023 End: 11-22-[address] Burton Da Silva Work Phone: [facility] Work Phone: Start: 11-22-2023 End: 11-22-[address] Burton Da Silva Work Phone: [facility]-Laboratory Work Phone: Start: 11-11-2023 End: 11-11-[address] Burton Da Silva Work Phone: [facility] Work Phone: Start: 11-11-2023 End: 11-11-[address] Burton Da Silva Work Phone: [facility]-Outpatient Breast Imaging Work Phone: Start: 11-03-2023 End: 11-03-[address] Burton Da Silva Work Phone: [facility] Work Phone: Start: 10-12-2023 End: 10-12-2023 ambulatory [facility] Work Phone: Start: 10-12-2023 End: 10-12-2023 Patient encounter procedure [facility]-Pulmonary Services/Neurology Work Phone: Start: 06-23-2023 End: 06-23-2023 ambulatory [facility] Work Phone: Start: 06-23-2023 End: 06-23-2023 Patient encounter procedure [facility]-Laboratory Work Phone: Start: 05-17-2023 End: 05-18-2023 ambulatory DELANEY MAGAÑA MD Facility:B Start: 05-17-2023 End: 05-17-2023 Patient encounter procedure DELANEY MAGAÑA MD [facility] Start: 04-29-2023 End: 04-29-2023 ambulatory [facility] Work Phone: Start: 04-29-2023 End: 04-29-2023 Patient encounter procedure [facility]-Pulmonary Services/Neurology Work Phone: Start: 06-08-2022 End: 06-08-2022 ambulatory [facility] Work Phone: Start: 06-08-2022 End: 06-08-2022 Patient encounter procedure [facility]-Laboratory, Specimen Start: 08-07-2021 End: 08-07-2021 Patient encounter procedure MARIANN PORTER DO [facility] [facility] Start: 08-04-2021 End: 08-04-2021 Patient encounter procedure MARIANN PORTER DO [facility] Start: 01-29-2017 Ambulatory [facility] Facility :[facility] Procedures Date Procedure Procedure Detail Performing [...] virus vaccine, unspecified formulation MARIANN PORTER DO [facility] Payers Date Payer Category Payer Self-pay [id number] 2023 Unknown [id number] 2023 Unknown [id number] 2013 Private Health Insurance [id number] 1960 Unknown [id number] 2.16.8 [id number] [facility] [id number] Unknown ANTHEM [id number] 2.16.8 [id number] Unknown [id number] 2.16.8 [id number] Unknown [id number] 2.16.8 [id number] Unknown [id number] 2.16.8 [id number] Unknown [id number] 2.16.8 [id number] Unknown [id number] 2.16.8 [id number] Unknown [id number] 2.16.8 [id number] Unknown [id number] 2.16.8 [id number] Unknown [id number] 2.16.8 [id number] Social History Date Type Detail Facility Never smoked tob acco (finding) [facility] Start: 1960 Sex Assigned At Female [facility] Start: 04-15-2020 End: 11-03-2023 Tobacco smoking status NHIS Unknown if ever smoked [facility] Start: 02-16-2020 Non-smoker [facility] Evaluation + Plan note 05-17-2023 Note Date & Type Note Facility 05-17-2023 Evaluation + Plan note Diagnostic Tests PendingThyroglobulin, Serum with Reflex 05/17/23 [facility] Evaluation + Plan note Note Date & Type Note Facility Evaluation + Plan note No data available for this section [facility] Evaluation note Note Date & Type Note Facility Evaluation note No assessment information availa ble [facility] Work Phone: Evaluation note Note Date & Type Note Facility Evaluation note Diagnosis Onset Date Genetic counseling acute Vulvar itching acute Encounter for routine gyneco logical examination noneactive [facility] Work Phone: Hospital Discharge instructions Note Date & Type Note Facility Hospital Discharge instructions No data available for this section [facility] Progress note Note Date & Type Note Facility Progress note No data available for this section [facility] Summary Purpose Family History No Family History [...] No February 16, 2020 9:04am 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 French Folding 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 No February 15 0 9:04am Advance Directive Response Recorded Date/ Time Advance Directives No May 24, 2015 9:38am Living Will No February 16, 2020 10:04am Power of 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 No February 15 0 10:04am Chief Complaint and Reason for Visit Chief Complaint CHILLS WITHOUT FEVER Chief Complaint CHILLS WITHOUT FEVER 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.] BE BASED ON THE PRIMARY CLINICAL RECORDS. [facility] [employer] [facility]. provides no warranty or guarantee of the accuracy or completeness of information in this document.
== END | disposition home or self-care (01) ==
LOC: OPBI 13:35
PROVIDERS: PCP Family Medicine Geriatric Medicine; Referring Provider Family Medicine Geriatric Medicine; Visit Provider Family Medicine Geriatric Medicine
DX: Z12.31 Encounter for screening mammogram for malignant neoplasm of breast (principal); Z80.3 Family history of malignant neoplasm of breast
CPT/HCPCS: 77063; 77067

== ENCOUNTER → 2025-04-04 | Outpatient (CLI) | payer OTHER, SELFPAY ==
--- NOTE | 2025-04-04 16:00 | RAD_ITS ---
PROCEDURE: CHEST PA AND LATERAL 04/04/2025 REASON FOR EXAM: SOB TECHNIQUE: Procedure Code: RADCXR Modality: DX Procedure: CHEST PA AND LATERAL COMPARISON: None FINDINGS: The heart and mediastinum are normal. The lungs are clear. There is no focal consolidation or effusion. No pneumothorax. Osseous structures reveal mild multilevel degenerative disc disease of the spine. RAD/Chest PA and Lateral IMPRESSION: No acute cardiopulmonary disease. Reading Location: [id number]
[2025-04-04 17:43] LABS: D-Dimer Quantitative (DVT/PE) 0.64 FEU/ug/m (0.27-0.49)
== END | disposition home or self-care (01) ==
PROVIDERS: PCP Family Medicine Geriatric Medicine; Referring Provider Family Medicine Geriatric Medicine; Visit Provider Family Medicine Geriatric Medicine
DX: J98.8 Other specified respiratory disorders (principal); R79.89 Other specified abnormal findings of blood chemistry; R06.02 Shortness of breath
CPT/HCPCS: 36415; 71046; 85379; 87631

== ENCOUNTER → 2025-04-18 | Outpatient (CLI) | payer OTHER, SELFPAY | END | disposition home or self-care (01) | LOC: CT 17:40 | PROVIDERS: PCP Family Medicine Geriatric Medicine; Referring Provider Family Medicine Geriatric Medicine; Visit Provider Family Medicine Geriatric Medicine | DX: R06.2 Wheezing (principal); R06.02 Shortness of breath | CPT/HCPCS: 71275; Q9967 ==

== ENCOUNTER → 2025-05-24 | Outpatient (CLI) | payer OTHER, SELFPAY ==
[2025-05-24 13:57] LABS: Anion Gap 11 (5-15); BUN 17 mg/dL (4-19); BUN/Creat Ratio 25.4 RATIO (10-20); Calcium,Total 9.5 mg/dL (7.6-11.0); Carbon Dioxide 23.8 mmol/L (21.0-32.0); Chloride 105 mmol/L (98-108); Glucose 111 mg/dL (70-99); Potassium 3.5 mmol/L (3.3-5.1)
[2025-05-25 18:12] LABS: Thyroglobulin, Serum Qt. < 0.1 ng/mL (1.5-38.5)
== END | disposition home or self-care (01) ==
LOC: LAB 12:03
PROVIDERS: PCP Family Medicine Geriatric Medicine; Referring Provider Internal Medicine Endocrinology, Diabetes & Metabolism; Visit Provider Internal Medicine Endocrinology, Diabetes & Metabolism
DX: E89.0 Postprocedural hypothyroidism (principal)
CPT/HCPCS: 36415; 80048; 84432; 84443; 86800

== ENCOUNTER → 2025-07-04 | Outpatient (CLI) | payer OTHER, SELFPAY ==
--- OUTSIDE RECORDS SUMMARY | 2025-07-04 09:27 | XMS RPT_ITS | CCD ---
Author Organization [facility] Care Team Providers Care Construction Flagger Name Role Phone EDUARDO DAMICO Unavailable Unavailable EDUARDO DAMICO Unavailable Unavailable ALEM RAMON Unavailable Unavailable JOLENE MONTES, DR PRIETO Primary Care Physician JOLENE MONTES, DR PRIETO Primary Care Physician DELANEY MAGAÑA MD Attending Unavailable DR CONNER FERNÁNDEZ MD Primary Care Unavailable Dr. Britney Fernández Chi Primary Care Provider Dr. Britney Fernández Chi Referring Provider LISA Gold Attending Provider Dr. Britney Fernándze MD, Chi Primary Care Provider Dr. Delaney Magaña MD Attending Provider Dr. Delaney Magaña MD Referring Provider Dr. Britney Fernández MD, Chi Attending Provider Dr. Britney Fernández MD, Chi Referring Provider Unavailable Primary Care Provider UnavailANEESH Jerome Attending UnavailBERNADETTE Culp Attending Unavailable FITZ LANDEROS Referring Unavailable Dr. Birtney Fernández MD, Chi Primary Care Physician Dr. Britney Fernández MD, Chi Attending Physician [phone] TAMIR HATFIELD DO Attending Unavailable DR CONNER FERNÁNDEZ MD Primary Care Unavailable Britney Fernández Chi Attending Unavailable Britney Fernández Chi Referring Unavailable Britney Fernández Chi Primary Care Unavailable Britney Fernández Chi Attending Unavailable Jolene, Britney Chi Referring Unavailable Jolene, Britney Chi Primary Care Unavailable Jolene, Britney Chi Attending Unavailable Jolene, Britney Chi Referring Unavailable Jolene, Britney Chi Primary Care Unavailable Jolene, Britney Chi Attending Unavailable Jolene, Britney Chi Primary Care Unavailable Delaney Magaña Attending Unavailable ManoharDelaney Referring Unavailable Jolene, Britney Chi Primary Care Unavailable Delaney Magaña Attending Unavailable Delaney Magaña Referring Unavailable Jolene, Britney Chi Primary Care Unavailable Delaney Magaña Attending Unavailable Delaney Magaña Referring Unavailable Jolene, Britney Chi Primary Care Unavailable Jolene, Britney Chi Attending Unavailable Jolene, Britney Chi Primary Care Unavailable Medications Current Medications Medication Drug Class(es) Dates Sig (Normalized) Sig (Original) [id number] 200 actuat albuterol 0.09 mg/actuat metered dose inhaler (2 sources) beta2-Adrenergic Agonist Start: 01-30-2025 take 2 puff(s) by inhalation every four hours as needed for wheezing albuterol HFA (PROVENTIL HFA, VENTOLIN HFA) 90 mcg/actuation inhaler Inhale 2 puffs as instructed every 4 hours as needed for wheezing/shortne ss of breath. 01/30/2025 Active albuterol MDI (90 mcg/inh) CFC free inhalation aerosol (1 source) Start: 05-13-2025 take 2 puff(s) by inhalation every four hours albuterol MDI (90 mcg/inh) CFC free inhalation aerosol 2 puff(s), Inhalation, q4h, # 1 EA, 0 Refill(s) Start Date: 05/13/25 Status: Ordered Medication Dispense Status: Completed Quantity: 1.0 Unit: EA Total Allowed Fills: 1 Fills Dispensed: 0 benzonatate 100 mg oral capsule (1 source) Non-narcotic Antitussive Start: 05-13-2025 End: 05-20-2025 Tessalon Perles 100 mg oral capsule Dose : 100 mg = 1 cap(s), Oral, TID, PRN as needed for cough, X 7 day(s), # 21 cap(s), 0 Refill(s), 05/20/25 1:20:00 AM EDT Start Date: 05/13/25 Stop Date: 05/20/25 Status: Ordered Medication Dispense Status: Completed Quantity: 21.0 Unit: cap(s) Total Allowed Fills: 1 Fills Dispensed: 0 cefdinir 300 mg oral capsule (2 sources) Cephalosporin Antibacterial Start: 02-20-2025 take 1 capsule by mouth every twelve hours cefdinir (OMNICEF) 300 mg capsule Take 1 capsule by mouth every 12 hours. 02/20/2025 Active citalopram 20 mg oral tablet (7 sources) Serotonin Reuptake Inhibitor Start: 11-03-2023 take 1 tablet by mouth once daily clobetasol propionate 0.0005 mg/mg topical ointment (3 sources) Corticosteroid Start: 12-19-2023 codeine phosphate 2 mg/ml / guaiFENesin 20 mg/ml oral solution (2 sources) Opioid Agonist Start: 02-20-2025 take 5 mL by mouth every eight hours as needed codeine-guaiFENe sin (ROBITUSSIN AC) 10-100 mg/5 mL syrup Take 5 mL by mouth three times a day as needed for cold/allergy symptoms. 02/20/2025 Active doxycycline hyclate 100 mg oral capsule (1 source) Tetracycline-class Drug Start: 05-13-2025 End: 05-20-2025 doxycycline hyclate 100 mg oral capsule Dose : 100 mg = 1 cap(s), Oral, BID, X 7 day(s), # 14 cap(s), 0 Refill(s), 05/20/25 1:20:00 AM EDT, 112 Start Date: 05/13/25 Stop Date: 05/20/25 Status: Ordered Medication Dispense Status: Completed Quantity: 14.0 Unit: cap(s) Total Allowed Fills: 1 Fills Dispensed: 0 ergocalciferol 1.25 mg oral capsule (11 sources) Provitamin D2 Compound Start: 04-26-2015 levothyroxine sodium 0.175 mg oral tablet (20 sources) l-Thyroxine Start: 02-13-2025 take 1 tablet by mouth once daily before breakfast SYNTHROID 175 mcg tablet Take 175 mcg by mouth daily before breakfast. 02/13/2025 Active Start: 11-03-2023 take 1 tablet by akhil th once daily Start: 01-29-2020 End: 11-03-2023 Levothyroxine 75 mcg tablet Discontinued 175 ug PO MOTUWETHFRSA January 29, 2020 8:06am November 03, 2023 2:28pm Start: 01-29-2020 End: 11-03-2023 Levothyroxine Discontinued 1 75 MCG PO MOTUWETHFRSA January 29, 2020 8:06am November 03, 2023 2:28pm Start: 01-28-2017 Synthroid 175 mcg (0.175 mg) oral tablet Dose : 175 mcg = 1 tab(s), Oral, qDay, 0 Refill(s) Start Date: 01/28/17 Status: Ordered Medication Dispense Status: Completed Total Allowed Fills: 1 Fills Dispensed: 0 Start: 04-26-2015 End: 01-29-2020 take 1 tablet by mouth once daily Levothyroxine 75 MCG tablet Discontinued 75 ug PO DAILY April 26, 2015 12:00am January 29, 2020 8:07am predniSONE 20 mg oral tablet (1 source) Start: 05-13-2025 End: 05-17-2025 predniSONE 20 mg oral tablet Dose : 40 mg = 2 tab(s), Oral, qDay, X 4 day(s), # 8 tab(s), 0 Refill(s), 05/17/25 1:20:00 AM EDT Start Date: 05/13/25 Stop Date: 05/17/25 Status: Ordered Medication Dispense Status: Completed Quantity: 8.0 Unit: tab(s) Total Allowed Fills: 1 Fills Dispensed: 0 vitamin d 50,000 otc (4 sources) Start: 01-29-2017 vitamin d 50,0 00 otc vitamin d 50,000 otc, 0 Refill(s) Start Date: 01/29/17 Status: Ordered Medication Dispense Status: Completed Total Allowed Fills: 1 Fills Dispensed: 0 Start: 01-29-2017 vitamin d 50,0 00 otc vitamin d 50,000 otc, 0 Refill(s) Start Date: 01/29/17 Status: Ordered Completed/Discontinued Medications Medication Drug Class(es) Dates Sig (Normalized) Sig (Original) oxyCODONE hydrochloride 5 mg oral tablet (9 sources) Opioid Agonist Start: 02-20-2020 End: 04-01-2020 take 1-2 tablets by mouth every four hours as needed for pain Oxycodone 5 MG tablet Discontinued 5 mg PO EVERY 4 HOURS NEEDED as needed for Pain Score 6-10/10 30 0 February 20, 2020 April 01, 2020 9:06am Other acute postprocedural pain 1-2 tabs by mouth every 4 hrs as needed for pain tacrolimus 0.0003 mg/mg topical ointment (9 sources) Calcineurin Inhibitor Immunosuppressant Start: 04-26-2015 End: 01-29-2020 Tacrolimus 30 GM ointment Discontinued 0 g TOPICAL NEEDED as needed for Dry Skin April 26, 2015 12:00am January 29, 2020 8:07am Start: 04-26-2015 End: 01-29-2020 Tacrolimus Discontinued 0 GM TOPICAL NEEDED April 26, 2015 12:00am January 29, 2020 8:07am Problems Active Problems Problem Classification Problem Date Documented Date Episodic/Chronic Cancer of thyroid (1 source) Malignant neoplasm of thyroid gland; Translations: [Malignant neoplasm of thyroid gland] Onset: 11-21-2024 Chronic Chronic obstructive pulmonary disease and bronchiectasis (3 sources) Bronchitis; Translations: [Bronchitis, not specified as acute or chronic] Onset: 05-12-2025 Episodic Complications of surgical procedures or medical care (1 source) Postprocedural hypothyroidism; Translations: [Postprocedural hypothyroidism] Onset: 05-24-2025 Chronic Contraceptive and procreative management (7 sources) Patient encounter status; Translations: [Encounter for genetic counseling] 11-03-2023 Episodic Comment on above: declines empower shiv ting. Essential hypertension (1 source) Essential (primary) hypertension; Translations: [Essential (primary) hypertension] Onset: 08-03-2024 Chronic Melanomas of skin (3 sources) Malignant melanoma of head and neck ; Translations: [Malignant melanoma of unspecified part of face] Onset: 03-22-2025 03-22-2025 Chronic Other inflammatory condition of skin (5 sources) Pruritus of vulva; Translations: [Pruritus vulvae] 11-03-2023 Episodic Comment on above: x2 years, not respon ding to hydrocortisone. previous provider recommended biospy cont with hydrocortisone and aquaphor in AM. responded to oral prednisone. to complete with physician. Other inflammatory condition of skin (2 sources) Pruritus vulvae; Translations: [Pruritus of genital organs] 11-03-2023 Episodic Other lower respiratory disease (1 source) Wheezing; Translations: [Wheezing] Onset: 05-12-2025 Episodic Other lower respiratory disease (1 source) Other specified respiratory disorders; Translations: [Other specified respiratory disorders] Onset: 04-17-2025 Episodic Other screening for suspected conditions (not mental disorders or infectious disease) (1 source) Encounter for screening mammogram for malignant neoplasm of breast; Translations: [Encounter for screening mammogram for malignant neoplasm of breast] Onset: 03-02-2025 Episodic Other skin disorders (3 sources) Lichen sclerosus et atrophicus; Translations: [Lichen sclerosus et atrophicus] 12-19-2023 Chronic Residual codes; unclassified (1 source) Chills (without fever); Translations: [Chills (without fever)] Onset: 02-28-2025 Episodic Unclassified (1 source) Unknown / UNK(Unknown) Onset: 01-29-2017 Unclassified (1 source) Consult Onset: 04-03-2025 Past or Other Problems Problem Classification Problem Date Documented Da te Episodic/Chronic Unclassified (1 source) HISTORY OF POLYPS Onset: 01-29-2017 Results Test Name Value Interpretation Reference Range Facility Thyroglobulin w/Anti-TG ABon 05-25-2025 Anti-TG AB < 1.0 Normal 0.0-0.9 [facility] Comment on above: Result Comment: Thyr oglobulin Antibody measured by [employer] Methodology It should be noted that the presence of thyroglobulin antibodies may not be pathogenic nor diagnostic, especially at very low levels. The assay gas station manager has found that four percent of individuals without evidence of thyroid disease or autoimmunity will have positive TgAb levels up to 4 IU/mL. Performed By: #### L 500.4100, L100.0100, L500.4050 #### [facility] [place], [address] THYROGLOB QUANT < 0.1 Low 1.5-38.5 [facility] Comment on above: Result Comment: Acco rding [...] is 0.1 ng/mL Thyroglobulin measured by [facility] [place] Immunometric Assay Performed at: - [address] [id number] Delinquency Counselor: Eduardo Sanford PhD, Phone: [phone] Performed By: #### L 500.4100, L100.0100, [id number] #### [facility] [address] [place], [address] Basic Metabolic Profile (BMP )on 05-24-2025 BUN/CRE 25.4 RATIO High 10-20 [facility] Comment on above: Performed By: #### L 500.4100, L100.0100, [id number] #### [facility] [address] [place], [address] Calcium [Mass/Vol] 9.5 mg/dL Normal 7.6-11.0 [facility] Comment on above: Performed By: #### L 500.4100, L100.0100, [id number] #### [facility] [address] [place], [address] Chloride [Moles/Vol] 105 mmol/L Normal 98-108 [facility] Comment on above: Performed By: #### L 500.4100, L100.0100, [id number] #### [facility] [address] [place], [address] CO2 [Moles/Vol] 23.8 mmol/L Normal 21.0-32.0 [facility] Comment on above: Performed By: #### L 500.4100, L100.0100, [id number] #### [facility] [address] [place], [address] Creatinine [Mass/Vol] 0.65 mg/dL Low 0.70-1.20 [facility] Comment on above: Performed By: #### L 500.4100, L100.0100, [id number] #### [facility] [address] [place], [address] GAP 11 Normal 5-15 [facility] Comment on above: Performed By: #### L 500.4100, L100.0100, [id number] #### [facility] [address] [place], [address] GFR/1.73 sq M.predicted among non-blacks MDRD (S/P/Bld) [Vol rate/Area] 98 mL/min/{1.73_m2} Normal >60 [facility] Comment on above: Result Comment: mL/m in/1.73m2 CKD-EPI Creatinine Equation (2020) Performed By: #### L 500.4100, L100.0100, [id number] #### [facility] [address] [place], [address] Glucose [Mass/Vol] 111 mg/dL High 70-99 [facility] Comment on above: Performed By: #### L 500.4100, L100.0100, [id number] #### [facility] [address] [place], [address] Potassium [Moles/Vol] 3.5 mmol/L Normal 3.3-5.1 [facility] Comment on above: Performed By: #### L 500.4100, L100.0100, [id number] #### [facility] [address] [place], [address] Sodium [Moles/Vol] 139 mmol/L Normal 133-145 [facility] Comment on above: Performed By: #### L 500.4100, L100.0100, [id number] #### [facility] [address] [place], [address] Urea nitrogen [Mass/Vol] 17 mg/dL Normal 4-19 [facility] Comment on above: Performed By: #### L 500.4100, L100.0100, [id number] #### [facility] [address] [place], [address] Thyroid Stim Hormone (TSH)on 05-24-2025 TSH 0.443 uIU/mL Normal 0.300-4.20 0 [facility] Comment on above: Performed By: #### L 500.4100, L100.0100, [id number] #### [facility] [address], [address] XR CHEST 1 VIEWon 05-13-2025 XR CHEST 1 VIEW ORIGINAL EXAMINATION: ONE XRAY VIEW OF THE CHEST05/12/2025 11:26 pm Portable upright COMPARISON: None HISTORY: ORDERING SYSTEM PROVIDED HISTORY: Reason for Exam: SOB/cough/fever, FINDINGS: Normal heart and mediastinum and pulmonary vasculature. No consolidation, pleural effusion or pneumothorax. There are streaky opacities in the lower lungs that could be summation artifacts from overlapping soft tissue and breast density versus lung infiltrates. No acute rib fractures. IMPRESSION: Bibasilar streaky opacities are favored to be artifact, interstitial pathology not excluded. Consider PA and lateral views. Interpreted by: Boom Chin MD Preliminary Report By: Boom Chin MD Electronically signed By Boom Chin MD Dictated Date: 05/13/2025 12:08:40 AM Prelim Date: 05/13/2025 12:09:24 AM Sign Date: 05/13/2025 12:09:24 AM Ordering Provider: TAMIR HATFIELD Normal [facility] .Auto Diffon 05-12-2025 Basophil, Absolute 0.0 10 3/mcL Normal 0.0-0.3 [facility] Comment on above: Performed By: #### D JUDY BALLESTEROS ADIFF, MDW, TROPHS, GFR, CBC, ANEU #### [address] [address] Basophils/100 WBC (Bld) 0.5 % Normal 0.0-2.5 [facility] Comment on above: Performed By: #### D JUDY BALLESTEROS ADIFF, MDW, TROPHS, GFR, CBC, ANEU #### [address] [address] Eosinophil, Absolute 0.4 10 3/mcL Normal 0.0-0.7 [facility] Comment on above: Performed By: #### D FAVIAN, BMP, ADIFF, MDW, TROPHS, GFR, CBC, ANEU #### [address] [address] Eosinophils/100 WBC (Bld) 5.3 % Normal 0.0-6.0 [facility] Comment on above: Performed By: #### D FAVIAN, BMP, ADIFF, MDW, TROPHS, GFR, CBC, ANEU #### [address] [address] Lymphocyte, Absolute 1.3 10 3/mcL Normal 0.9-4.3 [facility] Comment on above: Performed By: #### D FAVIAN, BMP, ADIFF, MDW, TROPHS, GFR, CBC, ANEU #### [address] [address] Lymphocytes/100 WBC (Bld) 18.1 % Low 20.0-40.0 [facility] Comment on above: Performed By: #### D FAVIAN, BMP, ADIFF, MDW, TROPHS, GFR, CBC, ANEU #### [address] [address] Monocyte, Absolute 0.5 10 3/mcL Normal 0.1-1.4 [facility] Comment on above: Performed By: #### D FAVIAN, BMP, ADIFF, MDW, TROPHS, GFR, CBC, ANEU #### [address] [address] Monocytes/100 WBC (Bld) 6.4 % Normal 2.0-13.0 [facility] Comment on above: Performed By: #### D FAVIAN, BMP, ADIFF, MDW, TROPHS, GFR, CBC, ANEU #### [address] [address] Neutrophils/100 WBC (Bld) 69.7 % Normal 50.0-75.0 [facility] Comment on above: Performed By: #### D FAVIAN, JUDY, WU, CHAVEZ, TROPHS, GFR, CBC, ANEU #### [address] [address] .GFRon 05-12-2025 Estimated Glomerular Filtration Rate 83 ml/min/1.73sqm Normal [facility] Comment on above: Result Comment: Stages of Chronic Kidney Disease (CKD) Stage Description eGFR(ml/min/1.73 sq.m.) CKD 1 Normal kidney function or >=90 normal kindney function with possible kidney damage (ex. Proteinuria) CKD 2 Kidney damage with mild loss 60-89 of kidney function CKD 3a Mild to moderate loss of kidney 45-59 function CKD 3b Moderate to severe loss of 30-44 of kindey function CKD 4 Severe loss of kidney function 15-29 CKD 5 Kidney failure <15 Note: (go live 2024) the eGFR calculation was updated to the 2020 CKD-EPI creatinine equation without a race factor to calculate the eGFR results. Performed By: #### D FAVIAN, JUDY, WU, CHAVEZ, TROPHS, GFR, CBC, ANEU #### [address] [address] .MDWon 05-12-2025 Monocyte Distribution Width 16.73 Normal 0.00-20.00 [facility] Comment on above: Result Comment: For ED adult patients suspected of sepsis, MDW<=20.0 does not rule out sepsis or risk of sepsis Performed By: #### D FAVIAN, JUDY, WU, CHAVEZ, TROPHS, GFR, CBC, ANEU #### [address] [address] .NEUABSon 05-12-2025 Neutrophil, Absolute 5.1 10 3/mcL Normal 2.3-8.1 [facility] Comment on above: Performed By: #### D FAVIAN, JUDY, WU, CHAVEZ, TROPHS, GFR, CBC, ANEU #### [address] [address] BMPon 05-12-2025 BUN/Creatinine Ratio 24 ratio Normal 7-27 [facility] Comment on above: Performed By: #### D FAVIAN, BMP, WU, MDW, TROPHS, GFR, CBC, ANEU #### [address] [address] Calcium [Mass/Vol] 9.2 mg/dL Normal 8.4-10.2 [facility] Comment on above: Performed By: #### Yemi FAVIAN, BMP, WU, MDW, TROPHS, GFR, CBC, ANEU #### [address] [address] Chloride [Moles/Vol] 104 mmol/L Normal 98-107 [facility] Comment on above: Performed By: #### D FAVIAN, BMP, WU, MDW, TROPHS, GFR, CBC, ANEU #### [address] [address] CO2 [Moles/Vol] 27 mmol/L Normal 23-31 [facility] Comment on above: Performed By: #### Yemi FAVIAN, BMP, ADXAVI, MDW, TROPHS, GFR, CBC, ANEU #### [address] [address] Creatinine [Mass/Vol] 0.79 mg/dL Normal 0.51-0.95 [facility] Comment on above: Performed By: #### Yemi FAVIAN, BMP, ADXAVI, MDW, TROPHS, GFR, CBC, ANEU #### [address] [address] Electrolyte Balance 8.0 mEq/L Normal 4.0-15.0 [facility] Comment on above: Performed By: #### Yemi FAVIAN, BMP, WU, MDW, TROPHS, GFR, CBC, ANEU #### [place] [address] Glucose [Mass/Vol] 123 mg/dL High 80-115 [facility] Comment on above: Performed By: #### Yemi FAVIAN, BMP, WU, MDW, TROPHS, GFR, CBC, ANEU #### [address] [address] Potassium [Moles/Vol] 3.9 mmol/L Normal 3.5-5.1 [facility] Comment on above: Performed By: #### D FAVIAN, JUDY, WU, W, TROPHS, GFR, CBC, ANEU #### [address] [address] Sodium [Moles/Vol] 139 mmol/L Normal 136-145 [facility] Comment on above: Performed By: #### D FAVIAN, JUDY, WU, W, TROPHS, GFR, CBC, ANEU #### [address] [address] Urea nitrogen [Mass/Vol] 19 mg/dL High 7-18 [facility] Comment on above: Performed By: #### D FAVIAN, JUDY, WU, W, TROPHS, GFR, CBC, ANEU #### [place] [address] CBCon 05-12-2025 Erythrocyte distribution width (RBC) [Ratio] 14.2 % Normal 11.5-15.5 [facility] Comment on above: Performed By: #### D FAVIAN, JUDY, CHAVEZ [place], TROPHS, GFR, CBC, ANEU #### [address] [address] Hematocrit (Bld) [Volume fraction] 43.7 % Normal 34.0-46.0 [facility] Comment on above: Performed By: #### D FAVIAN, JUDY, WU, W, TROPHS, GFR, CBC, ANEU #### [address] [address] Hgb 14.9 G/dL Normal 12.0-16.0 [facility] Comment on above: Performed By: #### D FAVIAN, JUDY, WU, W, TROPHS, GFR, CBC, ANEU #### [address] [address] MCH (RBC) [Entitic mass] 29.6 pg Normal 27.0-33.0 [facility] Comment on above: Performed By: #### D FAVIAN, BMP, WU, MDW, TROPHS, GFR, CBC, ANEU #### [address] [address] MCHC 34.2 G/dL Normal 32.0-36.0 [facility] Comment on above: Performed By: #### D FAVIAN, BMP, ADIFF, MDW, TROPHS, GFR, CBC, ANEU #### [address] [address] MCV (RBC) [Entitic vol] 86.6 fL Normal 80.0-99.0 [facility] Comment on above: Performed By: #### D FAVIAN, BMP, WU, MDW, TROPHS, GFR, CBC, ANEU #### [address] [address] Platelet 242 10 3/mcL Normal 150-450 [facility] Comment on above: Performed By: #### Yemi FAVIAN, BMP, ADIFF, MDW, TROPHS, GFR, CBC, ANEU #### [address] [address] Platelet mean volume (Bld) [Entitic vol] 7.8 fL Normal 6.6-10.5 [facility] Comment on above: Performed By: #### D FAVIAN, BMP, WU, MDW, TROPHS, GFR, CBC, ANEU #### [address] [address] RBC 5.05 10 6/mcL Normal 4.10-5.30 [facility] Comment on above: Performed By: #### Yemi FAVIAN, BMP, ADIFF, MDW, TROPHS, GFR, CBC, ANEU #### [address] [address] WBC 7.4 10 3/mcL Normal 4.5-10.8 [facility] Comment on above: Performed By: #### Yemi FAVIAN, BMP, ADIFF, MDW, TROPHS, GFR, CBC, ANEU #### [address] [address] DIMERon 05-12-2025 D-Dimer 245 ng/mL D-DU High 0-230 [facility] Comment on above: Result Comment: Resu lts reported in D-DU ng/mL. Positive for D-dimer. A positive D-Dimer may occur in the following: DVT, PE, DIC, Trauma, Cancer, Sepsis, , Rheumatoid arthritis, Myocardial infarction and Cirrhosis. The presence of Rheumatoid Factor and HAMA (human mouse antibody) produces an overestimation of test results. The result of the D-Dimer test should be evaluated in the context of all the clinical and laboratory data available. In those instances where the laboratory result does not agree with the clinical evaluation, additional tests should be performed accordingly. If the D-Dimer result is used to exclude DVT or PE, the recommended cutoff value is less than 230 ng/mL. The D-Dimer result should not be used alone to rule in DVT/PE, but should be used in conjunction with a clinical pretest probability (PTP)assessment model to exclude venous thromboembolism (VTE) in patients suspected of deep venous thrombosis (DVT) and pulmonary embolism (PE). Performed By: #### D FAVIAN, BMP, ADXAVI, MDW, TROPHS, GFR, CBC, ANEU #### [address] [address] LABORATORYOrdered By: SYSTEM SYSTEM on 05-12-2025 Basophils (Bld) [#/Vol] 0.0 103/mcL Normal 0.0 - 0.3 10^3/mcL AO Workflow SS Basophils/100 WBC (Bld) 0.5 % Normal 0.0 - 2.5 % AO Workflow SS Calcium [Mass/Vol] 9.2 mg/dL Normal 8.4 - 10. 2 mg/dL AO ADM SS Chloride [Moles/Vol] 104 mmol/L Normal 98 - 10 7 mmol/L AO ADM SS CO2 [Moles/Vol] 27 mmol/L Normal 23 - 31 mmol/L AO ADM SS Creatinine [Mass/Vol] 0.79 mg/dL Normal 0.51 - 0.95 mg/dL AO ADM SS Electrolyte Balance 8.0 mEq/L Normal 4.0 - 15 .0 mEq/L AO ADM SS Eosinophil, Absolute 0.4 103/mcL Normal 0.0 - 0 .7 10^3/mcL AO Workflow SS Eosinophils/100 WBC (Bld) 5.3 % Normal 0.0 - 6.0 % AO Workflow SS Erythrocyte distribution width (RBC) [Ratio] 14.2 % Normal 11.5 - 15.5 % AO Workflow SS Fibrin D-dimer DDU (PPP) [Mass/Vol] 245 ng/mL D-DU High 0 - 230 ng/mL D-DU AO [facility] Comment on above: Result Comment: Resu lts reported in D-DU ng/mL. Positive for D-dimer. A positive D-Dimer may occur in the following: DVT, PE, DIC, Trauma, Cancer, Sepsis, , Rheumatoid arthritis, Myocardial infarction and Cirrhosis. The presence of Rheumatoid Factor and HAMA (human mouse antibody) produces an overestimation of test results. Interpretive Data: T he result of the D-Dimer test should be evaluated in the context of all the clinical and laboratory data available. In those instances where the laboratory result does not agree with the clinical evaluation, additional tests should be performed accordingly. If the D-Dimer result is used to exclude DVT or PE, the recommended cutoff value is less than 230 ng/mL. The D-Dimer result should not be used alone to rule in DVT/PE, but should be used in conjunction with a clinical pretest probability (PTP)assessment model to exclude venous thromboembolism (VTE) in patients suspected of deep venous thrombosis (DVT) and pulmonary embolism (PE). GLOMERULAR FILTRATION RATE/1.73 SQ M.PREDICTED:ARVRAT:PT:S ER/PLAS/BLD:QN:CREATINI NE-BASED FORMULA (CKD-EPI 2020) 83 ml/min/1.73sqm Invalid Interpretation Code AO Chemistry S Comment on above: Interpretive Data: Stages of Chronic Kidney Disease (CKD) Stage Description eGFR(ml/min/1.73 sq.m.) CKD 1 Normal kidney function or >=90 normal kindney function with possible kidney damage (ex. Proteinuria) CKD 2 Kidney damage with mild loss 60-89 of kidney function CKD 3a Mild to moderate loss of kidney 45-59 function CKD 3b Moderate to severe loss of 30-44 of kindey function CKD 4 Severe loss of kidney function 15-29 CKD 5 Kidney failure <15 Note: (go live 2024) the eGFR calculation was updated to the 2020 CKD-EPI creatinine equation without a race factor to calculate the eGFR results. Glucose [Mass/Vol] 123 mg/dL High 80 - 115 mg/dL AO ADM SS Hematocrit (Bld) [Volume fraction] 43.7 % Normal 34.0 - 46.0 % AO Workflow SS Hemoglobin (Bld) [Mass/Vol] 14.9 G/dL Normal 12.0 - 16.0 G/dL AO Workflow SS Lymphocytes (Bld) [#/Vol] 1.3 103/mcL Normal 0.9 - 4.3 10^3/mcL AO Workflow SS Lymphocytes/100 WBC (Bld) 18.1 % Low 20.0 - 40.0 % AO Workflow SS MCH (RBC) [Entitic mass] 29.6 pg Normal 27.0 - 33.0 pg AO Workflow SS MCHC 34.2 G/dL Normal 32.0 - 36.0 G/dL AO Workflow SS MCV (RBC) [Entitic vol] 86.6 fL Normal 80.0 - 99.0 fL AO Workflow SS Monocyte distribution width Auto (Bld) [Entitic vol] 16.73 1 Normal 0.00 - 20.00 AO Workflow SS Comment on above: Result Comment: For ED adult patients suspected of sepsis, MDW<=20.0 does not rule out sepsis or risk of sepsis Monocytes (Bld) [#/Vol] 0.5 103/mcL Normal 0.1 - 1.4 10^3/mcL AO Workflow SS Monocytes/100 WBC (Bld) 6.4 % Normal 2.0 - 13.0 % AO Workflow SS Neutrophils (Bld) [#/Vol] 5.1 103/mcL Normal 2.3 - 8.1 10^3/mcL AO Workflow SS Neutrophils/100 WBC (Bld) 69.7 % Normal 50.0 - 75.0 % AO Workflow SS Platelet mean volume (Bld) [Entitic vol] 7.8 fL Normal 6.6 - 10.5 fL AO Workflow SS Platelets (Bld) [#/Vol] 242 103/mcL Normal 150 - 450 10^3/mcL AO Workflow SS Potassium [Moles/Vol] 3.9 mmol/L Normal 3.5 - 5.1 mmol/L AO ADM SS RBC (Bld) [#/Vol] 5.05 106/mcL Normal 4.10 - 5.30 10^6/mcL AO Workflow SS Sodium [Moles/Vol] 139 mmol/L Normal 136 - 145 mmol/L AO ADM SS Troponin I.cardiac DL <= 0.01 ng/mL [Mass/Vol] 9 ng/L Normal 0 - 51 ng/L AO ADM SS Comment on above: Interpretive Data: H igh Sensitive Troponin I Reference Ranges: Female: 0-51 ng/L Male: 0-76 ng/L Testing performed on Dimension EXL using a homogeneous sandwich chemiluminescent immunoassay based on [employer] technology. Urea nitrogen [Mass/Vol] 19 mg/dL High 7 - 18 mg/dL AO ADM SS Urea nitrogen/Creatinine [Mass ratio] 24 ratio Normal 7 - 27 ratio AO ADM SS WBC (Bld) [#/Vol] 7.4 103/mcL Normal 4.5 - 10.8 10^3/mcL AO Workflow SS [facility] High Sensitivity Troponin I 9 ng/L Normal 0-51 [facility] Comment on above: Result Comment: High Sensitive Troponin I Reference Ranges: Female: 0-51 ng/L Male: 0-76 ng/L Testing performed on Dimension EXL using a homogeneous sandwich chemiluminescent immunoassay based on [employer] technology. Performed By: #### D FAVIAN, BMP, WU, W, TROPHS, GFR, CBC, ANEU #### [facility] [address] [place] [id number] CTA Chest W/WO Contraston CTA Chest W/WO Contrast [facility] Imaging Services [address] [place] [address] [id number] CTA Chest W/WO Contrast MR#: [id number] Acct: [id number] Name: WILLOW DOMINGUEZ Rep #: [id number] : 1960 F 64 From: Panda Ruggiero MD PCP: Dr. Britney Fernández MD Status: REG CLI Study: CTA Chest W/WO Contrast Date of Exam: 04/18/25 Exam# [id number] Ordering Dr: Britney Fernández MD PROCEDURE: CTA CHEST W/WO CONTRAST 04/18/2025 REASON FOR EXAM: SOB, WHEEZING TECHNIQUE: Procedure Code: CTCTACHWW Modality: CT Procedure: CTA CHEST W/WO CONTRAST Multiplanar Sagittal and Coronal images were obtained. 3D post processing was performed CONTRAST: Isovue 370 VOLUME: 100 mL One or more dose reduction techniques were used (e.g., Automated exposure control, adjustment of the mA and/or kV according to patient size, use of iterative reconstruction technique). Multiplanar Sagittal and Coronal images were obtained. 3D post processing was performed CONTRAST: Isovue 370 VOLUME: 100 mL RADIATION DOSE SUMMARY: CTDlvol: 15.7 mGy DLP: 522 mGycm COMPARISON: None FINDINGS: Hardware: None Lymph nodes: Few subcentimeter lymph nodes are demonstrated within the mediastinum. There is a slightly prominent right hilar lymph node measuring 1.1 cm in short axis. Heart: Unremarkable. Thoracic Aorta: No thoracic aortic aneurysm or dissection. Pulmonary Vessels: No large central pulmonary emboli are identified. Contrast timing is suboptimal for evaluation of more distal branches. Lungs and Airways: 6 mm calcified granuloma in the left lower lobe. Minimal bronchial wall thickening adjacent to the calcified granuloma. Subtle subsegmental areas of ground-glass opacification in the left lower low near the lung base. Pleura: Unremarkable. Upper Abdomen: Unremarkable. Bones: Degenerative changes are present. No suspicious lesions. CT/CTA Chest W/WO Contrast IMPRESSION: 1. Subtle subsegmental area of ground-glass opacification in the left lower lobe near the lung base may represent subtle areas of atelectasis versus pneumonitis. There is associated bronchial wall thickening. 2. Mild prominence of the mediastinal lymph node the largest in the right hilum measuring up to 1.1 cm. 3. Suboptimal contrast bolus with no definitive filling defect demonstrated in the pulmonary artery and outflow tract. Reading Location: [place] [address] CC: Dr. Britney Fernández MD Computer Systems Architect: Signed Normal [facility] Chest PA and Lateralon 04-04 Chest PA and Lateral [facility] Imaging Services [address] [place] [address] Chest PA and Lateral MR#: [id number] Acct: [id number] Name: WILLOW DOMINGUEZ Rep #: [id number] : 1960 F 64 From: Alessandro weaver MD PCP: Dr. Britney Fernández MD Status: REG CLI Study: Chest PA and Lateral Date of Exam: 04/04/25 Exam# [id number] Ordering Dr: Britney Fernández MD PROCEDURE: CHEST PA AND LATERAL 04/04/2025 REASON FOR EXAM: SOB TECHNIQUE: Procedure Code: RADCXR Modality: DX Procedure: CHEST PA AND LATERAL COMPARISON: None FINDINGS: The heart and mediastinum are normal. The lungs are clear. There is no focal consolidation or effusion. No pneumothorax. Osseous structures reveal mild multilevel degenerative disc disease of the spine. RAD/Chest PA and Lateral IMPRESSION: No acute cardiopulmonary disease. Reading Location: [facility] CC: Dr. Britney Fernández MD Computer Systems Architect: Signed Normal [facility] D-Dimer Quantitative (DVT/PE )on 04-04-2025 D-DIMER QUANT 0.64 FEU/ug/m Invalid Interpretation Code 0.27-0.49 [facility] Comment on above: Result Comment: D-Di paul ELEVATED (>0.49): Additional studies and clinical assessments are indicated to conclude diagnosis of: Deep Vein Thrombosis (DVT) or Pulmonary Embolism (PE) CRITICAL VALUE CALLED TO DR BRINTEY FERNÁNDEZ 04/04/25 1743 Willow Leger. RESULTS READ BACK BY SAME. Performed By: #### L 300.8000, M100.678 #### [facility] [address] [place], [place], [id number] Influenza virus A and B and SARS-CoV-2 (COVID-19) and Respiratory syncytial virus RNAOrdered By: Britney Fernández on 04-04-2025 SARS-CoV-2 (COVID-19) RNA MYRA+probe Ql (Unsp spec) [facility] M100.678on 04-04-2025 M100.678 Pending SARS-CoV-2 (COVID 19) Negative INFLUENZA A Negative INFLUENZA B Negative RSV PCR Negative Normal [facility] Comment on above: Performed By: #### L 300.8000, M100.678 #### [facility] [address] [place], [address] [facility] 04-03-2025 [facility] Office Visit (PLHWBA ) -- WILLOW DOMINGUEZ ([id number]) 1960 F Date Time Provider Department 04/03/25 1:[address] [facility] your visit today, we recorded the following information about you: Pulse Blood pressure Weight Height 79/minute 132/88 116.6 kg 1.753 m Aneesh Denny MD 04/07/2025 6:46 PM Signed Division of Plastic Surgery Consult Note CHIEF COMPLAINT: Lesion of left cheek History Obtained From: patient, family member, and EMR HISTORY OF PRESENT ILLNESS: The patient is a 64 year old female who presents with left cheek lesion which has been biopsied as a melanoma - surrounding discoloration present for years. The patient states that they first noticed the lesion month(s) ago. It has grown in size since they first noticed the lesion. The lesion has changed in color and has had discharge or bleeding. The pt has the lesion biopsied previously. The patient has not had the lesion removed previously. The patient states the lesion is not painful. The pt denies any associated symptoms. PAST MEDICAL HISTORY Diagnosis Date Breast reduction 2000 complet Thyrodiectomy 09/2010 Hypothyroidism Malignant melanoma (HCC) 02/2025 left malar cheek, bx proven partial Thyroidectomy 05/2010 Right Knee Torn Meniscus 2018 PAST SURGICAL HISTORY Procedure Laterality Date PAST SURGICAL HISTORY OF knee menisucs REDUCTION OF LARGE BREAST 2000 REMOVAL GALLBLADDER SKIN BX, 1 LESION 02/2025 THYROIDECTOMY 2009,2010, ALLERGIES No Known Allergies Current Outpatient Medications Medication Sig albuterol HFA (PROVENTIL HFA, VENTOLIN HFA) 90 mcg/actuation inhaler Inhale 2 puffs as instructed every 4 hours as needed for wheezing/shortness of breath. cefdinir (OMNICEF) 300 mg capsule Take 1 capsule by mouth every 12 hours. citalopram (CELEXA) 20 mg tablet Take 1 tablet by mouth once daily. codeine-guaiFENesin (ROBITUSSIN AC) 10-100 mg/5 mL syrup Take 5 mL by mouth three times a day as needed for cold/allergy symptoms. ergocalciferol 50,000 unit capsule (VITAMIN D2, DRISDOL) Take 1 capsule by mouth one time a week. SYNTHROID 175 mcg tablet Take 175 mcg by mouth daily before breakfast. No current facility-administered medications for this visit. REVIEW OF SYSTEMS: CONSTITUTIONAL: negative for fevers, chills, sweats and fatigue EYES: negative for dipolpia or acute vision loss. RESPIRATORY: negative for dry cough, cough with sputum, dyspnea, wheezing and chest pain HENT:negative for pain, headache, difficulty swallowing or nose bleeds. CARDIOVASCULAR: negative for chest pain, dyspnea, palpitations, syncope GASTROINTESTINAL: negative for nausea, vomiting, change in bowel habits, diarrhea, constipation and abdominal pain EXTREMITIES: negative for edema MUSCULOSKELETAL: negative for muscle weakness SKIN: positive for lesionnegative for itching or rashes. HEME: negative for easy brusing or bleeding BEHAVIOR/PSYCH: negative for poor appetite, increased appetite, decreased sleep and poor concentration PHYSICAL EXAM: BP 132/88 Pulse 79 Ht 5' 9 (1.75m) Wt 257 lb (116.6kg) BMI 37.93 kg/(m2). CONSTITUTIONAL: awake, alert, cooperative, no apparent distress, and appears stated age EYES: PERRLA, EOMI, no signs of occular infection, CN V and VII intact EXTREMITIES: no signs of clubbing or cyanosis. NEURO: Cranial nerves II-XII grossly intact. No signs of agitated mood. SKIN: melanotic skin lesion with 1cm x1cm area of redness s/p biopsy, unclear margins IMPRESSION/RECOMMENDATIONS : Encounter Diagnosis ICD-10-CM 1. Malignant melanoma of face (HCC) C43.30 -We will plan to proceed with below: Surgery Scheduling Willow Dominguez 1960 Procedure: Left cheek ATT, possible skin sub, possible complex closure OR Time Needed: 90 min [place] or ASC:[facility] Equipment Request: plastics set, 10F drain avail and 4-0 prolene (not opened), face lift scissors, bipolar, needle tip, 5-0 monocryl, 5-0 fast, 5-0 PDS SA Requested: yes if no PA Anesthesia: General - tubing to the right Post op appointment: 1,3,6 Inpatient stay: n/a Block Needed: No Pre Testing Needed: No Occupational Therapy: No Cosmetic: No Aneesh Denny MD -The risks, benefits and options were discussed with the pt. The risks included but not limited to pain, bleeding, infection, heavy scarring, damage to surrounding structures, fluid collections, asymmetry, and need for further procedures. All of Her questions were answered to their satisfaction and She agrees to proceed with the procedure. Aneesh Denny MD During this patient visit I have spent approximately 30 minutes out of 45 in counseling regarding treatment options and coordinating care. Allergies As of Date: 04/03/2025 (No Known Allergies) Date Reviewed: 04/03/2025 Reviewed by: Annabel Calvo MA - Fully Assesse (more content not included)... Normal [facility] CNOVon 03-22-2025 CNOV Office Visit (AGGENS 3) -- WILLOW DOMINGUEZ ([id number]) 1960 F Date Time Provider Department 03/22/25 10:30 AM BERNADETTE BUCK AGGENS3 During your visit today, we recorded the following information about you: Pulse Blood pressure Weight Height 81/minute 138/78 118.4 kg 1.76 m Bernadette Buck MD 03/22/2025 10:59 AM Signed Bernadette Buck MD Surgical Oncology 1 [facility], [address] [place] [address] Name: Willow Roth Angelica Age: [age] year old Sex: Willow Roth Angelica : 1960 Referring Provider: Fitz Landeros PA-C Subjective CHIEF COMPLAINT: Melanoma ONCOLOGIC HISTORY: 02/23/2025: Skin biopsy: melanoma Anatomic Location: L cheek Breslow Depth: 0.6mm Ulceration: No Mitosis: 0/mm2 HISTORY OF PRESENT ILLNESS: Ms. Dominguez is a 64 year old female who presents for initial evaluation for melanoma. New Skin Lesion: No Changing size/shape: Yes Bleeding: No Other concerning lesions/nodules: No Prior history of melanoma: No History of sunburns:Yes History of tanning bed use: No Family history of Melanoma: No Anatomic Location: L cheek Breslow Depth: 0.6mm Ulceration: No Mitosis: 0/mm2 I personally reviewed Allergies Meds Problems Med Hx Surg Hx Fam Hx Objective PHYSICAL EXAM: BP 138/78 Pulse 81 Ht 5' 9.291 (1.76m) Wt 261 lb 1 oz (118.4kg) SpO2 95% BMI 38.23 kg/(m2). Physical Exam Constitutional: General: She is not in acute distress. Appearance: Normal appearance. HENT: Head: Normocephalic and atraumatic. Mouth/Throat: Mouth: Mucous membranes are moist. Eyes: Extraocular Movements: Extraocular movements intact. Cardiovascular: Rate and Rhythm: Normal rate. Pulmonary: Effort: Pulmonary effort is normal. No respiratory distress. Abdominal: General: Abdomen is flat. Palpations: Abdomen is soft. Musculoskeletal: General: Normal range of motion. Cervical back: Normal range of motion. Lymphadenopathy: Cervical: No cervical adenopathy. Upper Body: Right upper body: No supraclavicular adenopathy. Left upper body: No supraclavicular adenopathy. Skin: General: Skin is warm and dry. Comments: Biopsy site without residual pigmentation Neurological: General: No focal deficit present. Mental Status: She is alert and oriented to person, place, and time. Mental status is at baseline. Psychiatric: Mood and Affect: Mood normal. Behavior: Behavior normal. Thought Content: Thought content normal. Judgment: Judgment normal. DATA: Pathology Report: 02/23/2025: L medial malar cheek: melanoma Histologic type: lentigo maligna melanoma Maximum tumor thickness: 0.6mm Ulceration: not identified Margins: Positive Deep: uninvolved Peripheral: involved by melanoma in situ Mitotic indesx: 0/mm2 Microscopic satellites: not identified Lymphovascular invasion: not identified Perineural linvasion: not identified Regression: not identified Pathologic stage: pT1a Assessment/Plan Ms. Dominguez is a 64 year old female with melanoma of left cheek. Surgical Planning: WLE: Yes SLNB: No - Melanoma [place] risk calculator: 2% Adjacent tissue rearrangement, possible skin graft: Yes Plastics to close: Yes Cardiac History: no On ASA or Anticoagulants: no Pacemaker/defibrillator/im planted device: no Cancer Staging Malignant melanoma of face (HCC) Staging form: Melanoma of the Skin, AJCC 8th Edition - Clinical: Stage IA (cT1a, cN0, cM0) - Signed by Bernadette Buck MD on 03/22/2025 Bernadette Buck MD 03/22/2025 1056 Referring Provider: FITZ LANDEROS [[id number]] Allergies As of Date: 03/22/2025 (No Known Allergies) Date Reviewed: 03/22/2025 Reviewed by: Bernadette Buck MD - Fully Assessed Reason for Visit: New Patient [172] Cmt: Melanoma Left Cheek Primary Visit Diagnosis:Malignant melanoma of face (HCC) [C43.30] Prescriptions as of 03/22/2025 - albuterol HFA (PROVENTIL HFA, VENTOLIN HFA) 90 mcg/actuation inhaler Inhale 2 puffs as instructed every 4 hours as needed for wheezing/shortness of breath. - cefdinir (OMNICEF) 300 mg capsule Take 1 capsule by mouth every 12 hours. - citalopram (CELEXA) 20 mg tablet Take 1 tablet by mouth once daily. - codeine-guaiFENesin (ROBITUSSIN AC) 10-100 mg/5 mL syrup Take 5 mL by mouth three times a day as needed for cold/allergy symptoms. - ergocalciferol 50,000 unit capsule (VITAMIN D2, DRISDOL) Take 1 capsule by mouth one time a week. - SYNTHROID 175 mcg tablet Take 175 mcg by mouth daily before breakfast. Problem List As Of Date 03/22/2025 Noted Resolved Malignant melanoma of face (HCC) [C43.30] 03/22/2025 Level of Service: OFFICE/OUTPATIENT NEW MODERATE MDM 45 MINUTES [83787] Additional E/M codes: VISIT CPLX INHERENT EANDM ASSOC WITH MED * Encount (more content not included)... Normal [facility] HISTORY PHYSICALon HISTORY PHYSICAL HNO ID: [id number] Author: BERNADETTE BUCK MD Service: ? Author Type: Physician Type: H&P Filed: 03/22/2025 10:59 Note Text: Bernadette Buck MD Surgical Oncology 1 [facility], [address] [place] [address] Name: Willow Dominguez Age: [age] year old Sex: Willow Dominguez : 1960 Referring Provider: Fitz Landeros PA-C Subjective CHIEF COMPLAINT: Melanoma ONCOLOGIC HISTORY: 02/23/2025: Skin biopsy: melanoma Anatomic Location: L cheek Breslow Depth: 0.6mm Ulceration: No Mitosis: 0/mm2 HISTORY OF PRESENT ILLNESS: Ms. Dominguez is a 64 year old female who presents for initial evaluation for melanoma. New Skin Lesion: No Changing size/shape: Yes Bleeding: No Other concerning lesions/nodules: No Prior history of melanoma: No History of sunburns:Yes History of tanning bed use: No Family history of Melanoma: No Anatomic Location: L cheek Breslow Depth: 0.6mm Ulceration: No Mitosis: 0/mm2 I personally reviewed Allergies Meds Problems Med Hx Surg Hx Fam Hx Objective PHYSICAL EXAM: BP 138/78 Pulse 81 Ht 5' 9.291 (1.76m) Wt 261 lb 1 oz (118.4kg) SpO2 95% BMI 38.23 kg/(m2). Physical Exam Constitutional: General: She is not in acute distress. Appearance: Normal appearance. HENT: Head: Normocephalic and atraumatic. Mouth/Throat: Mouth: Mucous membranes are moist. Eyes: Extraocular Movements: Extraocular movements intact. Cardiovascular: Rate and Rhythm: Normal rate. Pulmonary: Effort: Pulmonary effort is normal. No respiratory distress. Abdominal: General: Abdomen is flat. Palpations: Abdomen is soft. Musculoskeletal: General: Normal range of motion. Cervical back: Normal range of motion. Lymphadenopathy: Cervical: No cervical adenopathy. Upper Body: Right upper body: No supraclavicular adenopathy. Left upper body: No supraclavicular adenopathy. Skin: General: Skin is warm and dry. Comments: Biopsy site without residual pigmentation Neurological: General: No focal deficit present. Mental Status: She is alert and oriented to person, place, and time. Mental status is at baseline. Psychiatric: Mood and Affect: Mood normal. Behavior: Behavior normal. Thought Content: Thought content normal. Judgment: Judgment normal. DATA: Pathology Report: 02/23/2025: L medial malar cheek: melanoma Histologic type: lentigo maligna melanoma Maximum tumor thickness: 0.6mm Ulceration: not identified Margins: Positive Deep: uninvolved Peripheral: involved by melanoma in situ Mitotic indesx: 0/mm2 Microscopic satellites: not identified Lymphovascular invasion: not identified Perineural linvasion: not identified Regression: not identified Pathologic stage: pT1a Assessment/Plan Ms. Dominguez is a 64 year old female with melanoma of left cheek. Surgical Planning: WLE: Yes SLNB: No - Melanoma [place] risk calculator: 2% Adjacent tissue rearrangement, possible skin graft: Yes Plastics to close: Yes Cardiac History: no On ASA or Anticoagulants: no Pacemaker/defibrillator/im planted device: no Cancer Staging Malignant melanoma of face (HCC) Staging form: Melanoma of the Skin, AJCC 8th Edition - Clinical: Stage IA (cT1a, cN0, cM0) - Signed by Bernadette Buck MD on 03/22/2025 Bernadette Buck MD 03/22/2025 1056 Normal [facility] Breast imaging reportOrdered By: Sj Amato on 02-23-2025 Study report [facility] Imaging Services [address] [place] [address] SCRN MAMM (CAD)W/RADHA BILAT MR#: [id number] Acct: [id number] Name: WILLOW DOMINGUEZ Rep #: [id number] : 1960 F 64 From: Will Amato MD PCP: Dr. Britney Fernández MD Status: DOMINIQUE MEDINA Study:SCRN MAMM (CAD)W/RADHA BILAT Date of Exa m: 02/23/25 Exam# [id number] Ordering Dr: Britney Fernández MD EXAM: SCRN MAMM (CAD)W/RADHA BILAT DATE: 02/23/2025 CLINICAL HISTORY: F, Age 64 y/o , SCREEN Aunt with breast cancer. TECHNIQUE: SCRN MAMM (CAD)W/RADHA BILAT COMPARISON: Prior exam(s) dated November 11, 2023.. FINDINGS: TISSUE DENSITY: The breasts are almost entirely fatty. Bilateral Breast Mammographic Findings: No significant masses, calcifications or other abnormalities are identified. No suspicious masses, areas of developing architectural distortion, or suspicious calcifications. There has been no significant interval change. BI/SCRN MAMM (CAD)W/RADHA BILAT IMPRESSION: Stable examination. OVERALL FINAL ASSESSMENT BI-RADS 1: NEGATIVE. RECOMMENDATION: Routine annual follow-up in 1 Year A letter with findings and recommendations will be mailed to the patient. Reading Location: [id number] CC: Dr. Britney Fernández MD ~ Computer Systems Architect: Signed [facility] SCRN MAMM (CAD)W/RADHA BILATo n 02-23-2025 SCRN MAMM (CAD)W/RADHA BILAT [facility] Imaging Services [address] [place] [address] SCRN MAMM (CAD)W/RADHA BILAT MR#: [id number] Acct: [id number] Name: WILLOW DOMINGUEZ Rep #: [id number] : 1960 F 64 From: Sj dominguez MD PCP: Dr. Britney Fernández MD Status: [facility] Study: SCRN MAMM (CAD)W/RADHA BILAT Date of Exam: 03/12 Exam# [id number] Ordering Dr: Britney Fernández MD EXAM: SCRN MAMM (CAD)W/RADHA BILAT DATE: 02/23/2025 CLINICAL HISTORY: F, Age 64 y/o , SCREEN Aunt with breast cancer. TECHNIQUE: SCRN MAMM (CAD)W/RADHA BILAT COMPARISON: Prior exam(s) dated November 11, 2023.. FINDINGS: TISSUE DENSITY: The breasts are almost entirely fatty. Bilateral Breast Mammographic Findings: No significant masses, calcifications or other abnormalities are identified. No suspicious masses, areas of developing architectural distortion, or suspicious calcifications. There has been no significant interval change. BI/SCRN MAMM (CAD)W/RADHA BILAT IMPRESSION: Stable examination. OVERALL FINAL ASSESSMENT BI-RADS 1: NEGATIVE. RECOMMENDATION: Routine annual follow-up in 1 Year A letter with findings and recommendations will be mailed to the patient. Reading Location: [id number] CC: Dr. Britney Fernández MD Computer Systems Architect: Signed Normal [facility] Influenza virus A and B and SARS-CoV-2 (COVID-19) and Respiratory syncytial virus RNAOrdered By: Britney Fernández on 02-20-2025 SARS-CoV-2 (COVID-19) RNA MYRA+probe Ql (Unsp spec) [facility] M100.678on 02-20-2025 M100.678 Pending SARS-CoV-2 (COVID 19) Negative INFLUENZA A Negative INFLUENZA B Negative RSV PCR Negative Normal [facility] Comment on above: Performed By: #### L 500.4100, L100.0100, L500.4050 #### [facility] [address] [place], [place], [id number] Thyroglobulin w/Anti-TG ABon 11-26-2024 Anti-TG AB 1.4 IU/mL High 0.0-0.9 [facility] Comment on above: Result Comment: Thyr oglobulin Antibody measured by [employer] Methodology It should be noted that the presence of thyroglobulin antibodies may not be pathogenic nor diagnostic, especially at very low levels. The assay gas station manager has found that four percent of individuals without evidence of thyroid disease or autoimmunity will have positive TgAb levels up to 4 IU/mL. Performed By: #### L 500.2500, L3300.6820, L501.9520 #### [facility] [address] [place], [address] TG-NIELS < 2.0 Normal . [facility] Comment on above: Result Comment: This test was developed and its performance characteristics determined by [employer]. It has not been cleared or approved [...] quantitation limit is 2.0 ng/mL. Performed at: [facility] [id number] [place], [place] [id number] Delinquency Counselor: Eduardo Sanford PhD, Phone: [phone] Performed at: [facility] [address] [place] [id number] Delinquency Counselor: Thien Cardenas MD, Phone: [phone] Performed By: #### L 500.2500, L3300.6820, L501.9520 #### [facility] [address] [place], [address] Anion gap in Serum or Plasma Ordered By: Delaney Magñaa on 11-17-2024 Anion gap [Moles/Vol] 11 mmol/L - [facility] BUN/creatinine ratioOrdered By: Delaney Magaña on 11-17-2024 Urea nitrogen/Creatinine [Mass ratio] 18.8 mg/mg - [facility] Basic Metabolic Profile (BMP )on 11-17-2024 BUN/CRE 18.8 RATIO Normal - [facility] Comment on above: Performed By: #### L 500.2500, L3300.6820, L501.9520 #### [facility] [address] [place], [address] Calcium [Mass/Vol] 9.6 mg/dL Normal 7.6-11.0 [facility] Comment on above: Performed By: #### L 500.2500, L3300.6820, L501.9520 #### [facility] [address] [place], [address] Chloride [Moles/Vol] 105 mmol/L Normal 98-108 [facility] Comment on above: Performed By: #### L 500.2500, L3300.6820, L501.9520 #### [facility] [address] [place], [address] CO2 [Moles/Vol] 22.2 mmol/L Normal 21.0-32.0 [facility] Comment on above: Performed By: #### L 500.2500, L3300.6820, L501.9520 #### [facility] [address] [place], [address] Creatinine [Mass/Vol] 0.77 mg/dL Normal 0.70-1.20 [facility] Comment on above: Performed By: #### L 500.2500, L3300.6820, L501.9520 #### [facility] [address] [place], [address] GAP 11 Normal 5-15 [facility] Comment on above: Performed By: #### L 500.2500, L3300.6820, L501.9520 #### [facility] [address] [place], [address] GFR/1.73 sq M.predicted among non-blacks MDRD (S/P/Bld) [Vol rate/Area] 86 mL/min/{1.73_m2} Normal >60 [facility] Comment on above: Result Comment: mL/m in/1.73m2 CKD-EPI Creatinine Equation (2020) Performed By: #### L 500.2500, L3300.6820, L501.9520 #### [facility] [address] [place], [address] Glucose [Mass/Vol] 95 mg/dL Normal 70-99 [facility] Comment on above: Performed By: #### L 500.2500, L3300.6820, L501.9520 #### [facility] [address] [place], [address] Potassium [Moles/Vol] 4.0 mmol/L Normal 3.3-5.1 [facility] Comment on above: Performed By: #### L 500.2500, L3300.6820, L501.9520 #### [facility] [address] [place], [address] Sodium [Moles/Vol] 139 mmol/L Normal 133-145 [facility] Comment on above: Performed By: #### L 500.2500, L3300.6820, L501.9520 #### [facility] [address] [place], [address] Urea nitrogen [Mass/Vol] 15 mg/dL Normal 4-19 [facility] Comment on above: Performed By: #### L 500.2500, L3300.6820, L501.9520 #### [facility] [address] [place], [address] Carbon dioxide, total [Moles /volume] in Central venous bloodOrdered By: Delaney Magaña on 11-17-2024 CO2 [Moles/Vol] 22.2 mmol/L 21.0-32.0 [facility] Chloride assayOrdered By: Tesha Magaña on 11-17-2024 Chloride [Moles/Vol] 105 mmol/L 98-108 [facility] Glomerular filtration rate ( GFR) estimation/1.73 sq m using serum, plasma, or whole bOrdered By: Delaney Magaña on 11-17-2024 GFR/1.73 sq M.predicted among non-blacks MDRD (S/P/Bld) [Vol rate/Area] 86 mL/min/{1.73_m2} >60 [facility] Comment on above: mL/min/1.73m2 CKD-EP I Creatinine Equation (2020) Potassium measurement (mass/ volume)Ordered By: Delaney Magaña on 11-17-2024 Potassium (Unsp spec) [Mass/Vol] 4.0 mmol/L 3.3-5.1 [facility] Serum creatinine measurement (mass/volume)Ordered By: Delaney Magaña on 11-17-2024 Creatinine [Mass/Vol] 0.77 mg/dL 0.70-1.20 [facility] Serum glucose measurement (m ass/volume)Ordered By: Delaney Magaña on 11-17-2024 Glucose [Mass/Vol] 95 mg/dL 70-99 [facility] Serum or plasma calcium margarita urement (mass/volume)Ordered By: Delaney Magaña on 11-17-2024 Calcium [Mass/Vol] 9.6 mg/dL 7.6-11.0 [facility] Serum or plasma urea nitroge n measurement (mass/volume)Ordered By: Delaney Magaña on 11-17-2024 Urea nitrogen [Mass/Vol] 15 mg/dL 4-19 [facility] Sodium levelOrdered By: Wilman Magaña on 11-17-2024 Sodium [Moles/Vol] 139 mmol/L 133-145 [facility] TSH DL <= 0.005 mIU/L QnOrde red By: Delaney Magaña on 11-17-2024 TSH Qn 1.340 uIU/mL 0.300-4.20 0 [facility] Thyroglobulin measurement by radioimmunoassay (NIELS)Ordered By: Delaney Magaña on 11-17-2024 Thyroglobulin Ab NIELS Qn (S) < 2.0 ng/mL . [facility] Comment on above: This test was develo ped and its performance characteristicsdetermined by [employer]. It has not been cleared or approvedby the Food and Drug Administration.Reference Range:Pubertal Childrenand Adults: <40According to the National Academy of Clinical Biochemistry,the reference interval for Thyroglobulin (TG) should berelated to euthyroid patients and not for patients whounderwent thyroidectomy. TG reference intervals for thesepatients depend on the residual mass of the thyroid tissueleft after surgery. Establishing a post-operative baselineis recommended. The assay quantitation limit is 2.0 ng/mL.Performed at: [facility] [employer] [id number] Director: Eduardo Sanford PhD, Phone: [phone] at: [facility] [address] [id number] Director: Thien Cardenas MD, Phone: [phone] Thyroid Stim Hormone (TSH)on 11-17-2024 TSH 1.340 uIU/mL Normal 0.300-4.20 0 [facility] Comment on above: Performed By: #### L 500.2500, L3300.6820, L501.9520 #### [facility] [address] [place], [place], [id number] Thyroglobulin w/Anti-TG ABon 07-21-2024 Anti-TG AB < 1.0 Normal 0.0-0.9 [facility] Comment on above: Result Comment: Thyr oglobulin Antibody measured by [facility] [place] Methodology It should be noted that the presence of thyroglobulin antibodies may not be pathogenic nor diagnostic, especially at very low levels. The assay gas station manager has found that four percent of individuals without evidence of thyroid disease or autoimmunity will have positive TgAb levels up to 4 IU/mL. Performed By: #### L 3300.6820, L5.9520 #### [facility] [address] [place], [address] THYROGLOB QUANT < 0.1 Low 1.5-38.5 [facility] Comment on above: Result Comment: Acco rding [...] quantitation is 0.1 ng/mL Thyroglobulin measured by [employer] Immunometric Assay Performed at: [address] [id number] Delinquency Counselor: Eduardo Sanford PhD, Phone: [phone] Performed By: #### L 3300.6820, [id number] #### [facility] [address] [place], [address] Thyroid Stim Hormone (TSH)on 07-20-2024 TSH 2.620 uIU/mL Normal 0.358-3.74 0 [facility] Comment on above: Performed By: #### L 3300.6820, L5.95 #### [facility] [address] [place], [address] CBC W/Diff, Automatedon 12- Absolute Lymph 1.53 X10 3/uL Normal 0.83-4.51 [facility] Comment on above: Performed By: #### L 500.4100, L100.0100, L500.4050 #### [facility] [address] [place], [address] Absolute Neut 4.6 X10 3/uL Normal 2.0-7.7 [facility] Comment on above: Performed By: #### L 500.4100, L100.0100, L500.4050 #### [facility] [address] [place], [address] Basophils/100 WBC (Bld) 0.7 % Normal 0-1 [facility] Comment on above: Performed By: #### L 500.4100, L100.0100, L500.4050 #### [facility] [address] [place], [address] Eosinophils/100 WBC (Bld) 7.9 % High 0-5 [facility] Comment on above: Performed By: #### L 500.4100, L100.0100, L500.4050 #### [facility] [address] [place], [address] Erythrocyte distribution width (RBC) [Ratio] 13.9 % Normal 11.6-14.6 [facility] Comment on above: Performed By: #### L 500.4100, L100.0100, L500.4050 #### [facility] [address] [place], [address] Hematocrit (Bld) [Volume fraction] 44.7 % Normal 37-47 [facility] Comment on above: Performed By: #### L 500.4100, L100.0100, L500.4050 #### [facility] [address] [place], [address] Hemoglobin (Bld) [Mass/Vol] 14.1 g/dL Normal 12.0-15.0 [facility] Comment on above: Performed By: #### L 500.4100, L100.0100, L500.4050 #### [facility] [address] [place], [address] IG% 0.500 Normal 0.0-0.9 [facility] Comment on above: Result Comment: IG% - Immature Granulocytes (promyelocytes, myelocytes and metamyelocytes) > 1% indicates that a LEFT SHIFT is Present. Performed By: #### L 500.4100, L100.0100, L500.4050 #### [facility] [address] [place], [address] Lymphocytes/100 WBC (Bld) 20.9 % Normal 19-41 [facility] Comment on above: Performed By: #### L 500.4100, L100.0100, L500.4050 #### [facility] [address] [place], [address] MCH (RBC) [Entitic mass] 29.4 pg Normal 27.0-32.0 [facility] Comment on above: Performed By: #### L 500.4100, L100.0100, L500.4050 #### [facility] [address] [place], [address] MCHC (RBC) [Mass/Vol] 31.5 g/dL Low 32-36 [facility] Comment on above: Performed By: #### L 500.4100, L100.0100, L500.4050 #### [facility] [address] [place], [address] MCV (RBC) [Entitic vol] 93.1 fL Normal 81-99 [facility] Comment on above: Performed By: #### L 500.4100, L100.0100, L500.4050 #### [facility] [address] [place], [address] Monocytes/100 WBC (Bld) 7.2 % Normal 0-10 [facility] Comment on above: Performed By: #### L 500.4100, L100.0100, L500.4050 #### [facility] [address] [place], [address] Neutrophils/100 WBC (Bld) 62.8 % Normal 47-70 [facility] Comment on above: Performed By: #### L 500.4100, L100.0100, L500.4050 #### [facility] [address] [place], [address] Nucleated RBC (Bld) [#/Vol] 0 10*3/uL Normal 0-5 [facility] Comment on above: Performed By: #### L 500.4100, L100.0100, L500.4050 #### [facility] [address] [place], [address] Platelet mean volume (Bld) [Entitic vol] 9.8 fL Normal 6.2-12.0 [facility] Comment on above: Performed By: #### L 500.4100, L100.0100, L500.4050 #### [facility] [address] [place], [address] Platelets (Bld) [#/Vol] 256 10*3/uL Normal 150-450 [facility] Comment on above: Performed By: #### L 500.4100, L100.0100, L500.4050 #### [facility] [address] [place], [address] RBC (Bld) [#/Vol] 4.80 10*6/uL Normal 4.2-5.4 [facility] Comment on above: Performed By: #### L 500.4100, L100.0100, L500.4050 #### [facility] [address] [place], [address] RDW SD 47.6 fl High 35.1-43.9 [facility] Comment on above: Performed By: #### L 500.4100, L100.0100, L500.4050 #### [facility] [address] [place], [address] WBC (Bld) [#/Vol] 7.3 10*3/uL Normal 4.4-11.0 [facility] Comment on above: Performed By: #### L 500.4100, L100.0100, L500.4050 #### [facility] [address] [place], [address] Comprehensive Metabolic [facility] 07-03-2024 Albumin [Mass/Vol] 3.4 g/dL Normal 3.2-5.0 [facility] Comment on above: Performed By: #### L 500.4100, L100.0100, L500.4050 #### [facility] [address] [place], [address] Albumin/Globulin [Mass ratio] 0.9 {ratio} Normal 0.9-2.4 [facility] Comment on above: Performed By: #### L 500.4100, L100.0100, L500.4050 #### [facility] [address] [place], [address] ALK P 102 U/L Normal 45-117 [facility] Comment on above: Performed By: #### L 500.4100, L100.0100, L500.4050 #### [facility] [address] [place], [address] ALT [Catalytic activity/Vol] 23 U/L Normal 13-56 [facility] Comment on above: Performed By: #### L 500.4100, L100.0100, L500.4050 #### [facility] [address] [place], [address] AST [Catalytic activity/Vol] 17 U/L Normal 15-37 [facility] Comment on above: Performed By: #### L 500.4100, L100.0100, L500.4050 #### [facility] [address] [place], [address] Bilirubin [Mass/Vol] 0.70 mg/dL Normal 0.20-1.00 [facility] Comment on above: Result Comment: For patients on eltrombopag therapy, use of Dimension [place] TBIL is not recommended. Performed By: #### L 500.4100, L100.0100, L500.4050 #### [facility] [address] [place], [address] BUN/CRE 18.3 RATIO Normal 10-20 [facility] Comment on above: Performed By: #### L 500.4100, L100.0100, L500.4050 #### [facility] [address] [place], [address] CA,Total 9.3 mg/dL Normal 8.5-10.1 [facility] Comment on above: Performed By: #### L 500.4100, L100.0100, L500.4050 #### [facility] [address] [place], [address] Chloride [Moles/Vol] 108 mmol/L High 98-107 [facility] Comment on above: Performed By: #### L 500.4100, L100.0100, L500.4050 #### [facility] [address] [place], [address] CO2 [Moles/Vol] 28.0 mmol/L Normal 21.0-32.0 [facility] Comment on above: Performed By: #### L 500.4100, L100.0100, L500.4050 #### [facility] [address] [place], [address] Creatinine [Mass/Vol] 0.76 mg/dL Normal 0.55-1.02 [facility] Comment on above: Result Comment: The validity of the calculated GFR GFRAA in patients over 70 years has not been determined. Clinical correlation is essential. Performed By: #### L 500.4100, L100.0100, L500.4050 #### [facility] [address] [place], [address] EST GFR - AA 98 mL/min Normal >60 [facility] Comment on above: Result Comment: Afri can English GFR Calc Performed By: #### L 500.4100, L100.0100, L500.4050 #### [facility] [address] [place], [address] GAP 4 Low 5-15 [facility] Comment on above: Performed By: #### L 500.4100, L100.0100, L500.4050 #### [facility] [address] [place], [address] GFR/1.73 sq M.predicted among non-blacks MDRD (S/P/Bld) [Vol rate/Area] 81 mL/min/{1.73_m2} Normal >60 [facility] Comment on above: Result Comment: Non- GFR Calc Performed By: #### L 500.4100, L100.0100, L500.4050 #### [facility] [address] [place], [address] Globulin (S) [Mass/Vol] 3.9 g/dL Normal 2.2-4.2 [facility] Comment on above: Performed By: #### L 500.4100, L100.0100, L500.4050 #### [facility] [address] [place], [address] Glucose [Mass/Vol] 101 mg/dL Normal 74-106 [facility] Comment on above: Result Comment: Fast ing Glucose result from 100 to 125 mg/dL suggests IMPAIRED HOMEOSTASIS per A.D.A. criteria. Performed By: #### L 500.4100, L100.0100, L500.4050 #### [facility] [address] [place], [address] Potassium [Moles/Vol] 4.1 mmol/L Normal 3.5-5.1 [facility] Comment on above: Performed By: #### L 500.4100, L100.0100, L500.4050 #### [facility] [address] [place], [address] Sodium [Moles/Vol] 140 mmol/L Normal 136-145 [facility] Comment on above: Performed By: #### L 500.4100, L100.0100, L500.4050 #### [facility] [address] [place], [address] T PROT 7.3 g/dL Normal 6.4-8.2 [facility] Comment on above: Performed By: #### L 500.4100, L100.0100, L500.4050 #### [facility] [address] [place], [address] Urea nitrogen [Mass/Vol] 14 mg/dL Normal 7-18 [facility] Comment on above: Performed By: #### L 500.4100, L100.0100, L500.4050 #### [facility] [address] [place], [address] Lipid Profileon 07-03-2024 Cholesterol [Mass/Vol] 203 mg/dL High 200 [facility] Comment on above: Result Comment: <200 mg/dL Desirable 200-240 mg/dL Borderline >240 mg/dL High Risk Performed By: #### L 500.4100, L100.0100, L500.4050 #### [facility] [address] [place], [address] Cholesterol in HDL [Mass/Vol] 79 mg/dL Normal [facility] Comment on above: Result Comment: The drugs N-Acetylcysteine and Metamizole may falsely depress this assay. Reference Range HDL <40 mg/dL Low HDL Cholesterol HDL >or= 60 mg/dL High HDL Cholesterol Performed By: #### L 500.4100, L100.0100, L500.4050 #### [facility] [address] [place], [address] Cholesterol in LDL [Mass/Vol] 114 mg/dL Normal 0-130 [facility] Comment on above: Performed By: #### L 500.4100, L100.0100, L500.4050 #### [facility] [address] [place], [address] Cholesterol in VLDL [Mass/Vol] 10 mg/dL Normal 5-40 [facility] Comment on above: Performed By: #### L 500.4100, L100.0100, L500.4050 #### [facility] [address] [place], [address] Triglyceride [Mass/Vol] 48 mg/dL Normal [facility] Comment on above: Result Comment: The drugs N-Acetylcysteine and Metamizole may falsely depress this assay. Serum Triglycerides Reference Interval Normal <150 mg/dL Borderline high 150 - 199 mg/dL High 200 - 499 mg/dL Very High > or = 500 mg/dL Performed By: #### L 500.4100, L100.0100, L500.4050 #### [facility] [address] [place], [address] Basophil percentageOrdered B y: Delaney Magaña on 11-22-2023 Chloride [Moles/Vol] 110 mmol/L 98-107 [facility] Glucose [Mass/Vol] 92 mg/dL 74-106 [facility] Potassium [Moles/Vol] 4.0 mmol/L 3.5-5.1 [facility] Sodium [Moles/Vol] 139 mmol/L 136-145 [facility] - Chemistry and C hemistry - challengeOrdered By: Delaney Magaña on 11-22-2023 CO2 [Moles/Vol] 26.0 mmol/L 21.0-32.0 [facility] Urea nitrogen/Creatinine [Mass ratio] 26.2 mg/mg 10-20 [facility] No Panel InformationOrdered By: Delaney Magaña on 11-22-2023 Estimated GFR (MDRD) Amer 98 mL/min >60 [facility] Comment on above: GFR Calc Estimated GFR (MDRD) Non-Af Amer 81 mL/min >60 [facility] Comment on above: Non- GFR Calc Thyroglobulin Antibody < 1.0 IU/mL 0.0-0.9 [facility] Comment on above: Thyroglobulin Antibo dy measured by RiskalyzeMethodologyIt should be noted that the presence of thyroglobulinantibodies may not be pathogenic nor diagnostic, especiallyat very low levels. The assay gas station manager has found thatfour percent of individuals without evidence of thyroiddisease or autoimmunity will have positive TgAb levels upto 4 IU/mL. Serum or plasma calcium margarita urement (mass/volume)Ordered By: Delaney Magaña on 11-22-2023 Calcium [Mass/Vol] 9.7 mg/dL 8.5-10.1 [facility] Serum or plasma creatinine m easurement (mass/volume)Ordered By: Delaney Magaña on 11-22-2023 Creatinine [Mass/Vol] 0.76 mg/dL 0.55-1.02 [facility] Comment on above: The validity of the calculated GFR & GFRAA in patients over 70 years has not been determined. Clinical correlation is essential. Serum or plasma thyroid stim ulating hormone (TSH) measurement (units/volume)Ordered By: Delaney Magaña on 11-22-2023 TSH Qn 4.29 uIU/mL 0.358-3.74 [facility] Serum or plasma thyroperoxid ase antibody assay (units/volume)Ordered By: Delaney Magaña on 11-22-2023 TPO Ab Qn [IU]/mL 0-34 [facility] Comment on above: Performed at: [address] [id number] Director: Eduardo Sanford PhD, Phone: [phone] Serum or plasma urea nitroge n measurement (mass/volume)Ordered By: Delaney Magaña on 11-22-2023 Urea nitrogen [Mass/Vol] 20 mg/dL 7-18 [facility] Thin prep Papanicolaou smear with manual screeningOrdered By: Delaney Magaña on 11-22-2023 Thin prep Papanicolaou smear with manual screening 3 5-15 [facility] - Microbiology an d Antimicrobial susceptibilityOrdered By: Britney Fernández on 10-12-2023 SARS-CoV-2 (COVID-19) RNA MYRA+probe Ql (Unsp spec) [facility] Absolute lymphocyte countOrd ered By: Britney Fernández on 06-23-2023 Lymphocytes Auto (Unsp spec) [#/Vol] 1.41 10*3/uL 0.83-4.51 [facility] Basophil percentageOrdered B y: Britney Fernández on 06-23-2023 Basophils/100 WBC (Bld) 0.9 % 0-1 [facility] Bilirubin [Mass/Vol] 0.70 mg/dL 0.20-1.00 [facility] Comment on above: For patients on eltr ombopag therapy, use of Dimension [place] TBIL is not recommended. Chloride [Moles/Vol] 110 mmol/L 98-107 [facility] Cholesterol [Mass/Vol] 184 mg/dL <200 [facility] Comment on above: <200 mg/dL Desirable 200-240 mg/dL Borderline >240 mg/dL High Risk Eosinophils/100 WBC (Bld) 4.7 % 0-5 [facility] Glucose [Mass/Vol] 95 mg/dL 74-106 [facility] Neutrophils (Bld) [#/Vol] 3.6 10*3/uL 2.0-7.7 [facility] Neutrophils/100 WBC (Bld) 63.6 % 47-70 [facility] Potassium [Moles/Vol] 3.9 mmol/L 3.5-5.1 [facility] Protein [Mass/Vol] 7.4 g/dL 6.4-8.2 [facility] Sodium [Moles/Vol] 140 mmol/L 136-145 [facility] Triglyceride [Mass/Vol] 64 mg/dL <199 [facility] Comment on above: The drugs N-Acetylcy steine and Metamizole may falsely depress this assay.Serum Triglycerides Reference Interval Normal <150 mg/dL Borderline high 150 - 199 mg/dL High 200 - 499 mg/dL Very High > or = 500 mg/dL WBC (Bld) [#/Vol] 5.7 10*3/uL 4.4-11.0 [facility] Blood erythrocytes count (nu mber/volume)Ordered By: Britney Fernández on 06-23-2023 RBC (Bld) [#/Vol] 5.33 10*6/uL 4.2-5.4 [facility] Blood hemoglobin measurement (mass/volume)Ordered By: Britney Fernández on 06-23-2023 Hemoglobin (Bld) [Mass/Vol] 15.3 g/dL 12.0-15.0 [facility] Blood lymphocytes/100 leukoc ytesOrdered By: Britney Fernández on 06-23-2023 Lymphocytes/100 WBC (Bld) 24.7 % 19-41 [facility] Blood monocytes/100 leukocyt esOrdered By: Britney Fernández on 06-23-2023 Monocytes/100 WBC (Bld) 5.6 % 0-10 [facility] Blood platelet mean volumeOr dered By: Britney Fernández on 06-23-2023 Platelet mean volume (Bld) [Entitic vol] 9.8 fL 6.2-12.0 [facility] Determination of erythrocyte mean corpuscular volume (MCV)Ordered By: Britney Fernández on 06-23-2023 MCV (RBC) [Entitic vol] 91.6 fL 81-99 [facility] Hematocrit Auto (Bld) [Volum e fraction]Ordered By: Britney Fernández on 06-23-2023 Hematocrit (Bld) [Volume fraction] 48.8 % 37-47 [facility] Laboratory - Chemistry and C hemistry - challengeOrdered By: Britney Fernández on 06-23-2023 ALP [Catalytic activity/Vol] 105 U/L 45-117 [facility] ALT [Catalytic activity/Vol] 32 U/L 13-56 [facility] CO2 [Moles/Vol] 25.0 mmol/L 21.0-32.0 [facility] Globulin (S) [Mass/Vol] 3.9 g/dL 2.2-4.2 [facility] Urea nitrogen/Creatinine [Mass ratio] 17.4 mg/mg 10-20 [facility] Laboratory - Hematology and Cell countsOrdered By: Britney Fernández on 06-23-2023 Erythrocyte distribution width (RBC) [Entitic vol] 45.6 fL 35.1-43.9 [facility] Erythrocyte distribution width (RBC) [Ratio] 13.5 % 11.6-14.6 [facility] Immature granulocytes/100 WBC (Bld) 0.500 % 0.0-0.9 [facility] Comment on above: IG% - Immature Granu locytes (promyelocytes, myelocytes and metamyelocytes) > 1% indicates that a LEFT SHIFT is Present. MCH (RBC) [Entitic mass] 28.7 pg 27.0-32.0 [facility] Nucleated RBC/100 WBC (Bld) [Ratio] 0 % 0-5 [facility] MCHC Auto (RBC) [Mass/Vol]Or dered By: Britney Fernández on 06-23-2023 MCHC (RBC) [Mass/Vol] 31.4 g/dL 32-36 [facility] No Panel InformationOrdered By: Britney Fernández on 06-23-2023 Estimated GFR (MDRD) Amer 93 mL/min >60 [facility] Comment on above: GFR Calc Estimated GFR (MDRD) Non-Af Amer 77 mL/min >60 [facility] Comment on above: Non- GFR Calc Thyroid Stimulating Hormone (TSH) 0.39 uIU/mL 0.358-3.74 [facility] Vitamin D 25-Hydroxy 78.3 ng/mL [facility] Comment on above: Vitamin D 25(OH) Sta tus Range Deficiency <20 ng/mL (50nmol/L) Insufficiency 20 - 30 ng/mL (50 - 75 nmol/L) Sufficiency 30 - 100 ng/mL (75 - 250 nmol/L) Toxicity >100 ng/mL (>250 nmol/L) Platelets bldOrdered By: Britney Fernández on 06-23-2023 Platelets (Bld) [#/Vol] 239 10*3/uL 150-450 [facility] Serum or plasma albumin margarita urement (mass/volume)Ordered By: Britney Fernández on 06-23-2023 Albumin [Mass/Vol] 3.5 g/dL 3.2-5.0 [facility] Serum or plasma albumin/glob ulin mass ratioOrdered By: Britney Fernández 06-23-2023 Albumin/Globulin [Mass ratio] 0.9 {ratio} 0.9-2.4 [facility] Serum or plasma calcium margarita urement (mass/volume)Ordered By: Britney Fernández 06-23-2023 Calcium [Mass/Vol] 9.2 mg/dL 8.5-10.1 [facility] Serum or plasma cholesterol in HDL measurement (mass/volume)Ordered By: Britney Fernández 06-23-2023 Cholesterol in HDL [Mass/Vol] 67 mg/dL >40 [facility] Comment on above: The drugs N-Acetylcy steine and Metamizole may falsely depress this assay. Reference Range HDL <40 mg/dL Low HDL Cholesterol HDL >or= 60 mg/dL High HDL Cholesterol Serum or plasma cholesterol in VLDL measurement (mass/volume)Ordered By: Britney Fernández 06-23-2023 Cholesterol in VLDL [Mass/Vol] 13 mg/dL 5-40 [facility] Serum or plasma creatinine m easurement (mass/volume)Ordered By: Britney Fernández 06-23-2023 Creatinine [Mass/Vol] 0.80 mg/dL 0.55-1.02 [facility] Comment on above: The validity of the calculated GFR & GFRAA in patients over 70 years has not been determined. Clinical correlation is essential. Serum or plasma low density lipoprotein (LDL) cholesterol measurement (mass/volume)Ordered By: Britney Fernández 06-23-2023 Cholesterol in LDL [Mass/Vol] 104 mg/dL 0-130 [facility] Serum or plasma urea nitroge n measurement (mass/volume)Ordered By: Britney Fernández 06-23-2023 Urea nitrogen [Mass/Vol] 14 mg/dL 7-18 [facility] Thin prep Papanicolaou smear with manual screeningOrdered By: Britney Fernández on 06-23-2023 Thin prep Papanicolaou smear with manual screening 15 U/L 1537 [facility] Thin prep Papanicolaou smear with manual screening 5 5-15 [facility] .GFRon 05-18-2023 GFR 71 ml/min/1.73sqm Normal [facility] ([place]) Comment on above: Result Comment: GFR Population [...] meters Performed By: #### T HYAB #### [place] [address] #### TSH, VIDH, THYRORF, GFR, BMP #### [address] [address] GFR Non- 58 ml/min/1.73sqm Normal [facility] ([place]) Comment on above: Result Comment: GFR Population [...] meters Performed By: #### T HYAB #### [place] [address] #### TSH, VIDH, THYRORF, GFR, BMP #### [address] [address] [facility] 05-18-2023 BUN/Creatinine Ratio 15 ratio Normal 7-27 [facility] ([place]) Comment on above: Performed By: #### T HYAB #### [place] [address] #### TSH, VIDH, THYRORF, GFR, BMP #### [address] [address] Calcium [Mass/Vol] 9.0 mg/dL Normal 8.4-10.2 [facility] Comment on above: Performed By: #### T HYAB #### [place] [address] #### TSH, VIDH, THYRORF, GFR, BMP #### [address] [address] Chloride [Moles/Vol] 106 mmol/L Normal 98-107 [facility] ([place]) Comment on above: Performed By: #### T HYAB #### [place] [address] #### TSH, VIDH, THYRORF, GFR, BMP #### [address] [address] CO2 [Moles/Vol] 28 mmol/L Normal 23-31 [facility] ([place]) Comment on above: Performed By: #### T HYAB #### [place] [address] #### TSH, VIDH, THYRORF, GFR, BMP #### [address] [address] Creatinine [Mass/Vol] 0.97 mg/dL Normal 0.55-1.02 [facility] ([place]) Comment on above: Performed By: #### T HYAB #### [place] [address] #### TSH, VIDH, THYRORF, GFR, BMP #### [address] [address] Electrolyte Balance 9.0 mEq/L Normal 4.0-15.0 [facility] ([place]) Comment on above: Performed By: #### T HYAB #### [place] [address] #### TSH, VIDH, THYRORF, GFR, BMP #### [address] [address] Glucose [Mass/Vol] 124 mg/dL High 80-115 [facility] Comment on above: Performed By: #### T HYAB #### [place] [address] #### TSH, VIDH, THYRORF, GFR, BMP #### [address] [address] Potassium [Moles/Vol] 4.0 mmol/L Normal 3.5-5.1 [facility] ([place]) Comment on above: Performed By: #### T HYAB #### [place] [address] #### TSH, VIDH, THYRORF, GFR, BMP #### [address] [address] Sodium [Moles/Vol] 143 mmol/L Normal 136-145 [facility] [place] Comment on above: Performed By: #### T HYAB #### [place] [address] #### TSH, VIDH, THYRORF, GFR, BMP #### [address] [address] Urea nitrogen [Mass/Vol] 15 mg/dL Normal 7-18 [facility] ([place]) Comment on above: Performed By: #### T HYAB #### [place] [address] #### TSH, VIDH, THYRORF, GFR, BMP #### [address] [address] THYRORFon 05-18-2023 Thyroglobulin Ab, Serum <0.9 Normal <4.0 A [facility] ([place]) Comment on above: Result Comment: The Thyroglobulin Antibody test was performed using the Riskalyze Unicel DXI paramagnetic particle chemiluminescent immunoassay method. Results obtained with different assay methods or kits cannot be used interchangeably. Performed By: [address] [address] Delinquency Counselor: Art Jain III, M.D. CLIA#: [id number] Performed By: #### T HYAB #### [place] [address] #### TSH, VIDH, THYRORF, GFR, BMP #### [place] [id number] Thyroglobulin, Serum <0.1 Low 1.6-50.0 [facility] ([place]) Comment on above: Result Comment: The Thyroglobulin test was performed using the Riskalyze Unicel DXI paramagnetic particle chemiluminescent immunoassay method. Results obtained with different assay methods or kits cannot be used interchangeably. Performed By: [address] [address] Delinquency Counselor: Art Jain III, M.D. CLIA#: [id number] Performed By: #### T HYAB #### [place] [address] #### TSH, VIDH, THYRORF, GFR, BMP #### [address] [address] VIDHon 05-18-2023 Vit. D 25-Hydroxy 42.4 ng/mL Normal [facility] ([place]) Comment on above: Result Comment: Inte rpretive Values Based on Total 25(OH) Vitamin D: Deficient <20 ng/mL Insufficient 20 - <30 ng/mL Sufficient 30-100 ng/mL Performed By: #### T HYAB #### [address] [address] #### TSH, VIDH, THYRORF, GFR, BMP #### [place] [id number] LABORATORYOrdered By: SYSTEM SYSTEM on 05-17-2023 25-hydroxyvitamin [...] 05-17-2023 anti-Thyroid Peroxidase <28 Normal 0-60 [facility] ([place]) Comment on above: Result Comment: No te - New Reference Range in effect 20 Performed By: #### T HYAB #### [address] [address] #### TSH, VIDH, THYRORF, GFR, BMP #### [place] [address] [address] Thyroglobulin Ab 28 units/ml Normal 15-60 [facility] ([place]) Comment on above: Result Comment: No te - New Reference Range in effect 20 Performed By: #### T HYAB #### [address] [address] #### TSH, VIDH, THYRORF, GFR, BMP #### [place] [id number] [place], [place] [address] TSHon 05-17-2023 TSH Qn 0.23 m[IU]/L Low 0.36-3.74 [facility] ([place]) Comment on above: Performed By: #### T HYAB #### [address] [address] #### TSH, VIDH, THYRORF, GFR, BMP #### [place] [id number] [place], [place] [address] Laboratory - Microbiology an d Antimicrobial susceptibilityOrdered By: Britney Fernández on 04-29-2023 SARS-CoV-2 (COVID-19) RNA MYRA+probe Ql (Unsp spec) [facility] SARS-CoV-2 (COVID-19) RNA MYRA+probe Ql (Unsp spec) [facility] No Panel InformationOrdered By: Britney Fernández on 04-29-2023 Influenza Types A,B Direct FA (REYNALDO) [facility] Influenza Types A,B Direct FA (REYNALDO) [facility] RSV Ag EIAOrdered By: Britney garcia on 04-29-2023 RSV Ag Immune stain Ql (Tiss) [facility] RSV Ag Immune stain Ql (Tiss) [facility] AO ENDO Anesthesia Recordon 01-29-2017 AO ENDO Anesthesia Record Normal [facility] ENDO Procedure Recordon 01-29-2017 AO ENDO Procedure Record Normal [facility] Depart Summaryon 01-29-2017 Depart Summary Normal [facility] History and Physicalon 01-29 History and Physical Normal [facility] Procedure Noteon [facility] Procedure Note Normal A [facility] Outpatient Patient Summaryon 01-29-2017 Outpatient Patient Summary Normal [facility] Culture, urine Bacteria identified Cx Nom (U) Escherichia coli [facility] Work Phone: Vital Signs Date Time Vital Sign Value Performing Clinician Facility 05-13-2025 01:32-0400 Diastolic Blood Pressure Non-Invasive 74 mm[Hg] TAMIR DURESKA DO [facility] 05-13-2025 01:32-0400 Heart rate 86 /min TAMIR DURESKA DO [facility] 05-13-2025 01:32-0400 Respiratory rate 18 /min TAMIR DURESKA DO [facility] 05-13-2025 01:32-0400 Systolic Blood Pressure Non-Invasive 129 mm[Hg] TAMIR DURESKA DO [facility] 05-13-2025 00:15-0400 Diastolic Blood Pressure Non-Invasive 77 mm[Hg] TAMIR DURESKA DO [facility] 05-13-2025 00:15-0400 Heart rate 87 /min TAMIR DURESKA DO [facility] 05-13-2025 00:15-0400 Respiratory rate 20 /min TAMIR DURESKA DO [facility] 05-13-2025 00:15-0400 Systolic Blood Pressure Non-Invasive 129 mm[Hg] TAMIR DURESKA DO [facility] 05-12-2025 23:07-0400 Respiratory rate 16 /min TAMIR DURESKA DO [facility] 05-12-2025 23:00-0400 Diastolic Blood Pressure Non-Invasive 70 mm[Hg] TAMIR DURESKA DO [facility] 05-12-2025 23:00-0400 Heart rate 90 /min TAMIR DURESKA DO [facility] 05-12-2025 23:00-0400 Systolic Blood Pressure Non-Invasive 127 mm[Hg] TAMIR DURESKA DO [facility] 05-12-2025 22:58-0400 Heart rate 81 /min TAMIR HATFIELD DO [facility] 05-12-2025 22:58-0400 Reason For Taking VItal Signs TAMIR HATFIELD DO [facility] 05-12-2025 22:46-0400 Heart rate 78 /min TAMIR HATFIELD DO [facility] 05-12-2025 21:39-0400 Body temperature 97.16 [degF] TAMIR HATFIELD DO [facility] 05-12-2025 21:39-0400 Body weight 112 kg TAMIR HATFIELD DO [facility] 03-22-2025 10:12-0400 Body height 176 cm Bernadette Buck MD Work Phone: [facility] 03-22-2025 10:12-0400 Body mass index (BMI) [Ratio] 38.23 kg/m2 Bernadette Buck MD Work Phone: [facility] 03-22-2025 10:12-0400 Body weight 118.42 kg Bernadette Buck MD Work Phone: [facility] 03-22-2025 10:12-0400 Diastolic blood pressure 78 mm[Hg] Bernadette Buck MD Work Phone: [facility] 03-22-2025 10:12-0400 Heart rate 81 /min Bernadette Buck MD Work Phone: [facility] 03-22-2025 10:12-0400 SaO2% (BldA) [Mass fraction] 95 % Bernadette Buck MD Work Phone: [facility] 03-22-2025 10:12-0400 Systolic blood pressure 138 mm[Hg] Bernadette Buck MD Work Phone: [facility] 11-03-2023 14:40-0400 Body height 175.[address] Britney Fernández Work Phone: [facility] 11-03-2023 14:27-0400 Body mass index (BMI) [Ratio] 41.2 kg/m2 Dr. Britney Fernández Work Phone: [facility] 11-03-2023 14:27-0400 Body weight 126.[address] Britney Fernández Work Phone: [facility] 11-03-2023 14:27-0400 Diastolic blood pressure 90 mm[Hg] Dr. Britney Fernández Work Phone: [facility] 11-03-2023 14:27-0400 Systolic blood pressure 145 mm[Hg] Dr. Britney Fernández Work Phone: [facility] Encounters Encounter Date Encounter Type Care Provider Facility Start: 05-24-2025 ambulatory Delaney Magaña Facility :[facility] Start: 05-12-2025 End: 05-13-2025 Emergency department patient visit TAMIR HATFIELD [facility] Start: 04-18-2025 End: 04-18-2025 ambulatory Britney Fernández Facility:[facility] Start: 04-04-2025 End: 04-04-[address] Britney Fernández MD Work Phone: -Laboratory Phy Office 3rd Flr Start: 04-04-2025 End: 04-04-[address] Britney Fernández MD -Laboratory Phy Office 3rd Flr Start: 04-03-2025 End: 04-04-2025 ambulatory ANEESH DENNY Facility:[facility] Start: 03-22-2025 End: 03-22-2025 Office outpatient new 45 minutes Bernadette Buck MD Work Phone: [facility] Comment on above: Malignant melanoma o f face (HCC) (Primary Dx) Start: 03-22-2025 End: 03-22-2025 ambulatory BERNADETTE BUCK Facility:[facility] Start: 03-06-2025 End: 03-06-2025 Chart abstracting Bernadette Buck MD Work Phone: [facility] Start: 02-23-2025 End: 02-23-[address] Britney Fernández MD Work Phone: -Outpatient Breast Imaging Start: 02-23-2025 End: 02-23-[address] Britney Fernández MD -Outpatient Breast Imaging Work Phone: Start: 02-23-2025 End: 02-23-2025 ambulatory Britney Fernández Facility:[facility] Start: 02-20-2025 End: 02-20-[address] Britney Fernández MD Work Phone: -Laboratory Phy Office 3rd Flr Start: 02-20-2025 End: 02-20-[address] Britney Fernández MD -Laboratory Phy Office 3rd Flr Start: 02-20-2025 End: 02-20-2025 ambulatory Britney Fernández Facility:[facility] Start: 11-17-2024 End: 11-17-[address] Delaney Magaña MD -Laboratory Work Phone: Start: 11-17-2024 End: 11-17-2024 ambulatory Delaney Magaña Facility:[facility] Start: 07-20-2024 End: 07-20-2024 ambulatory Delaney Magaña Facility:[facility] Start: 07-03-2024 End: 07-03-2024 ambulatory [facility] Facility:[facility] Start: 11-22-2023 End: 11-22-[address] Britney Fernández Work Phone: [facility] Work Phone: Start: 11-22-2023 End: 11-22-[address] Britney Fernández Work Phone: [facility]-Laboratory Work Phone: Start: 11-11-2023 End: 11-11-[address] Britney Fernández Work Phone: [facility] Work Phone: Start: 11-11-2023 End: 11-11-[address] Britney Fernández Work Phone: [facility]-Outpatient Breast Imaging Work Phone: Start: 11-03-2023 End: 11-03-[address] Britney Fernández Work Phone: [facility] Work Phone: Start: 10-12-2023 End: 10-12-2023 ambulatory [facility] Work Phone: Start: 10-12-2023 End: 10-12-2023 Patient encounter procedure [facility]-Pulmonary Services/Neurology Work Phone: Start: 06-23-2023 End: 06-23-2023 ambulatory [facility] Work Phone: Start: 06-23-2023 End: 06-23-2023 Patient encounter procedure [facility]-Laboratory Work Phone: Start: 05-17-2023 End: 05-18-2023 ambulatory DELANEY MAGAÑA MD Facility:B Start: 05-17-2023 End: 05-17-2023 Patient encounter procedure DELANEY MAGAÑA MD [facility] Start: 04-29-2023 End: 04-29-2023 ambulatory [facility] Work Phone: Start: 04-29-2023 End: 04-29-2023 [facility] Start: 06-08-2022 End: 06-08-2022 ambulatory [facility] Work Phone: Start: 06-08-2022 End: 06-08-2022 Patient encounter procedure [facility]-Laboratory, Specimen Start: 08-07-2021 End: 08-07-2021 Patient encounter procedure MARIANN PORTER DO [facility] Start: 08-04-2021 End: 08-04-2021 Patient encounter [facility] Start: 01-29-2017 [facility] Facility :[place] [facility] Procedures Date Procedure Procedure Detail Performing Clinician Start: 04-04-2025 Radiologic exam chest [address] Britney Fernández MD Work Phone: Start: 04-04-2025 D-dimer assay, quantitative Dr. Britney Fernández MD Work Phone: Comment on above: D-Dimer ELEVATED (>0 .49): Additional studies and clinicalassessments are indicated to conclude diagnosis of:Deep Vein Thrombosis (DVT) or Pulmonary Embolism (PE)CRITICAL VALUE CALLED TO DR BRITNEY FERNÁNDEZ04/04/25 1743 [place].RESULTS READ BACK BY SAME. Start: 04-04-2025 SARS-CoV-2, Influenz a & RSV (PCR) Dr. Britney Fernández MD Work Phone: Start: 02-23-2025 Screening mammography D r. Britney Fernández MD Work Phone: Start: 02-20-2025 SARS-CoV-2, Influenz a & RSV (PCR) Dr. Britney Fernández MD Work Phone: Start: 11-17-2024 Thyroglobulin antibo dy measurement Dr. Britney Fernández MD Work Phone: Comment on above: Thyroglobulin Antibo dy measured by RiskalyzeMethodologyIt should be noted that the presence of thyroglobulinantibodies may not be pathogenic nor diagnostic, especiallyat very low levels. The assay gas station manager has found thatfour percent of individuals without evidence of thyroiddisease or autoimmunity will have positive TgAb levels upto 4 IU/mL. Start: 11-11-2023 Screening mammography D r. Britney Fernández Work Phone: Start: 10-12-2023 SARS-CoV-2, Influenz a & RSV (PCR) Start: 04-29-2023 Coronavirus COVID-19 PCR Start: 04-29-2023 Influenza Types A,B Direct FA (REYNALDO) Start: 04-29-2023 Respiratory syncytia l virus antigen assay Cholecystectomy MARIANN BEE DO Colonoscopy MARIANN Canada DO Comment on above: 2012 History of thyroidectomy KHANH PORTER DO Urine culture Plan of Treatment Date Care Activity Detail Author Start: 2035 RSV Vaccine (1 - 1-d ose 75+ series) RSV Vaccine (1 - 1-dose 75+ series) [facility] Start: 06-13-2029 Urine microalbumin profile DTaP,Tdap,Td Vaccine (3 - Td or Tdap) [facility] Start: 04-03-2025 End: 04-03-2025 Patient encounter procedure 04/03/2025 1:30 PM EDT Office Visit Plastic Surgery [address] [address] Aneesh Denny MD [address] [id number] NEW - Melanoma, left cheek. ([place]). [facility] Comment on above: NEW - Melanoma, left cheek. ([place]). ar Start: 03-22-2025 End: 03-22-2025 Patient encounter procedure 03/22/2025 10:30 AM EDT Office Visit [facility] [address] [facility] [address] [place] [address] Bernadette Buck MD [address] [place] [address] (Fax) Melanoma, Left cheek - refer from [facility] Comment on above: Melanoma, Left cheek - refer from [facility] Start: 03-19-2025 Influenza vaccination Influenza Vacc ine (#1) [facility] Start: 2010 Pneumococcal Vaccine : 50+ (1 of 1 - PCV) Pneumococcal Vaccine: 50+ (1 of 1 - PCV) [facility] Start: 2010 Shingrix Vaccine (1 of 2) Shingrix Vaccine (1 of 2) [facility] Start: 2005 Diabetes Screening Diabetes Screenin g [facility] Start: 2005 Lipid panel Lipid Screening [facility] Start: 2005 Screening for malign ant neoplasm of colon [facility] Start: 2000 Screening for malign ant neoplasm of breast Mammogram Screening [facility] Start: 1981 Screening for malign ant neoplasm of cervix Cervical Cancer Screening [facility] Start: 1979 Urine microalbumin profile DTaP,Tdap,Td Vaccine (1 - Tdap) [facility] Start: 1978 Anxiety Screening Anxiety Screening [facility] Start: 1978 Depression Screening Depression Scre ening [facility] Start: 1978 Hepatitis C screening Hepatitis C Sc reening [facility] Start: 1978 HIV screening HIV Screening [facility] Immunizations Immunization Date Immunization Notes Care Provider Fa [facility] 05-01-2024 influenza virus vaccine, unspecified formulation Bernadette Buck MD Work Phone: [facility] 05-02-2019 influenza virus vaccine, unspecified formulation MARIANN PORTER DO [facility] Payers Date Payer Category Payer Self-pay [id number] 2024 Unknown [id number] 2023 Unknown [id number] 2023 Private Health Insurance [id number] 2013 Private Health Insurance [id number] 1960 Unknown [id number] 2.16.8 [id number] 1960 Unknown [id number] 2.16. [id number] Unknown [id number] Unknown [id number] 2.16.8 [id number] Unknown [id number] 2.16.8 [id number] Unknown [id number] 2.16.8 [id number] Unknown [id number] 2.16.8 [id number] Unknown [id number] 2.16.8 [id number] Unknown [id number] 2.16.8 [id number] Unknown [id number] 2.16.8 [id number] Unknown [id number] 2.16.8 [id number] Social History Date Type Detail Facility Start: 11-03-2023 End: 05-12-2025 Never smoked tobacco (finding) [facility] Start: 1960 Sex Assigned At Female A [facility] Start: 04-15-2020 End: 11-03-2023 Tobacco smoking status NHIS Unknown if ever smoked [facility] Start: 02-16-2020 Non-smoker [facility] Start: 1960 Sex assigned at Not on file [facility] Start: 06-06-2021 End: 05-12-2025 Sex Female [facility] Start: 03-22-2025 Gender identity Not on file [facility] Start: 03-22-2025 History of Social function [facility] Sexual Orientation [facility] Start: 01-11-2019 Sex Female (finding) [facility] Functional Status Date Assessment Result Facility 05-13-2025 Functional Status Independent [facility] 05-12-2025 Functional Status Standard Safet y ID band on, Call device within reach, Bed in low position, Wheels locked, Bedside Cart Locked, Visitor at bedside, Safety level maintained [facility] 05-12-2025 Functional Status [facility] 05-12-2025 [facility] Mental Status Date Assessment Result Facility 05-13-2025 Mental Status Orientation Oriented x 4 [facility] 05-12-2025 Mental Status [facility] 05-12-2025 Mental Status [facility] Clinical Notes 05-17-2023 to 05-13-2025 Note Date & Type Note Facility 05-13-2025 Hospital Discharg e instructions Patient Education 05/13/2025 01:20:43 Bronchitis With Wheezing (Adult) Viral or Bacterial Bronchitis with Wheezing (Adult) Bronchitis is an infection of the air passages. It often occurs during a cold and is usually caused by a virus. Symptoms include cough with mucus (phlegm) and low-grade fever. This illness is contagious during the first few days and is spread through the air by coughing and sneezing, or by direct contact (touching the sick person and then touching your own eyes, nose, or mouth). If there is a lot of inflammation, air flow is restricted. The air passages may also go into spasm, especially if you have asthma. This causes wheezing and difficulty breathing even in people who do not have asthma. Bronchitis usually lasts 7 to 14 days. The wheezing should improve with treatment during the first week. An inhaler is often prescribed to relax the air passages and stop wheezing. Antibiotics will be prescribed if your doctor thinks there is also a secondary bacterial infection. Home care If symptoms are severe, rest at home for the first 2 to 3 days. When you go back to your usual activities, don't let yourself get too tired. Dont s'moke. Also avoid being exposed to secondhand smoke. You may use veyt-ctz-ukwkipu medicine to control fever or pain, unless another medicine was prescribed. Note: If you have chronic liver or kidney disease or have ever had a stomach ulcer or gastrointestinal bleeding, talk with your healthcare provider before using these medicines. Also talk to your provider if you are taking medicine to prevent blood clots.) Aspirin should never be given to anyone younger than 18 years of age who is ill with a viral infection or fever. It may cause severe liver or brain damage. Your appetite may be poor, so a light diet is fine. Stay well hydrated by drinking 6 to 8 glasses of fluids per day (such as water, soft drinks, sports drinks, juices, tea, or soup). Extra fluids will help loosen secretions in the nose and lungs. Ldks-jab-fcmcmpy cough, cold, and sore-throat medicines will not shorten the length of the illness, but they may be helpful to reduce symptoms. (Note: Don't use decongestants if you have high blood pressure.) If you were given an inhaler, use it exactly as directed. If you need to use it more often than prescribed, your condition may be worsening. If this happens, contact your healthcare provider. If prescribed, finish all antibiotic medicine, even if you are feeling better after only a few days. Follow-up care Follow up with your healthcare provider, or as advised. If you had an X-ray or ECG (electrocardiogram), a specialist will review it. You will be notified of any new findings that may affect your care. If you are age 65 or older, or if you have a chronic lung disease or condition that affects your immune system, or you smoke, ask your healthcare provider about getting a pneumococcal vaccine and a yearly flu shot (influenza vaccine). When to seek medical advice Call your healthcare provider right away if any of these occur: Fever of 100.4 F (38 C) or higher, or as directed by your healthcare provider Coughing up increasing amounts of colored sputum Weakness, drowsiness, headache, facial pain, ear pain, or a stiff neck Call 911 Call 911 if any of these occur. Coughing up blood Worsening weakness, drowsiness, headache, or stiff neck Increased wheezing not helped with medication, shortness of breath, or pain with breathing [id number] [employer]. [address] [place] [address]. All rights reserved. This information is not intended as a substitute for professional medical care. Always follow your healthcare professional's instructions. Follow Up Care 05/12/2025 21:21:58 With:CONNER FERNÁNDEZ MD Address: [facility] [place], [place] [address]- When:2-4 days [facility] 05-13-2025 Note Discharge Instructions Thank you for allowing [facility] to assist you with your healthcare needs. The following is important discharge information regarding your hospital visit. Diagnosis from Today's Visit Bronchitis What to Do Next Instructions from Your Care Team No qualifying data available. Post Acute Orders No qualifying data available. You Need to Schedule the Following Appointments Follow Up with CONNER FERNÁNDEZ MD When:Within 2-4 days Where:[facility] [place], [place] [address]- Allergies NKA Medications Please ask your primary doctor or pharmacist before taking any other medication not listed, including over the counter drugs, herbal medications, vitamins and or supplements as they may interact with your home medications. What How Much When Instructions Last Dose New albuterol (albuterol MDI (90 mcg/ inh) CFC free inhalation aerosol) 2 puff(s) by inhalation Every 4 hours Printed Prescription New benzonatate (Tessalon Perles 100 mg oral capsule) 1 cap by mouth Three (3) times a day as needed for as needed for cough Duration: 7 Days Printed Prescription New doxycycline (doxycycline hyclate 100 mg oral capsule) 1 cap by mouth Two (2) times a day Duration: 7 Days Printed Prescription New predniSONE (predniSONE 20 mg oral tablet) 2 tab(s) by mouth Once a day Duration: 4 Days Printed Prescription Unchanged levothyroxine (Synthroid 175 mcg (0.175 mg) oral tablet) 1 tab(s) by mouth Once a day Unchanged Misc Medication (vitamin d 50,000 otc) Please take this list to your next doctor s visit. Bring all medications you take, including over the counter medications, herbals and other supplements with you to your doctor s visit. Patients and families are reminded to discard old lists and to update any records with all medication providers or retail pharmacies. Education Materials Viral or Bacterial Bronchitis with Wheezing (Adult) Bronchitis is an infection of the air passages. It often occurs during a cold and is usually caused by a virus. Symptoms include cough with mucus (phlegm) and low-grade fever. This illness is contagious during the first few days and is spread through the air by coughing and sneezing, or by direct contact (touching the sick person and then touching your own eyes, nose, or mouth). If there is a lot of inflammation, air flow is restricted. The air passages may also go into spasm, especially if you have asthma. This causes wheezing and difficulty breathing even in people who do not have asthma. Bronchitis usually lasts 7 to 14 days. The wheezing should improve with treatment during the first week. An inhaler is often prescribed to relax the air passages and stop wheezing. Antibiotics will be prescribed if your doctor thinks there is also a secondary bacterial infection. Home care If symptoms are severe, rest at home for the first 2 to 3 days. When you go back to your usual activities, don't let yourself get too tired. Dont s'moke. Also avoid being exposed to secondhand smoke. You may use vzts-bvp-qxistdc medicine to control fever or pain, unless another medicine was prescribed. Note: If you have chronic liver or kidney disease or have ever had a stomach ulcer or gastrointestinal bleeding, talk with your healthcare provider before using these medicines. Also talk to your provider if you are taking medicine to prevent blood clots.) Aspirin should never be given to anyone younger than 18 years of age who is ill with a viral infection or fever. It may cause severe liver or brain damage. Your appetite may be poor, so a light diet is fine. Stay well hydrated by drinking 6 to 8 glasses of fluids per day (such as water, soft drinks, sports drinks, juices, tea, or soup). Extra fluids will help loosen secretions in the nose and lungs. Uave-vzr-cadkcus cough, cold, and sore-throat medicines will not shorten the length of the illness, but they may be helpful to reduce symptoms. (Note: Don't use decongestants if you have high blood pressure.) If you were given an inhaler, use it exactly as directed. If you need to use it more often than prescribed, your condition may be worsening. If this happens, contact your healthcare provider. If prescribed, finish all antibiotic medicine, even if you are feeling better after only a few days. Follow-up care Follow up with your healthcare provider, or as advised. If you had an X-ray or ECG (electrocardiogram), a specialist will review it. You will be notified of any new findings that may affect your care. If you are age 65 or older, or if you have a chronic lung disease or condition that affects your immune system, or you smoke, ask your healthcare provider about getting a pneumococcal vaccine and a yearly flu shot (influenza vaccine). When to seek medical advice Call your healthcare provider right away if any of these occur: Fever of 100.4 F (38 C) or higher, or as directed by your healthcare provider Coughing up increasing amounts of colored sputum Weakness, drowsiness, headache, facial pain, ear pain, or a stiff neck Call 911 Call 911 if any of these occur. Coughing up blood Worsening weakness, drowsiness, headache, or stiff neck Increased wheezing not helped with medication, shortness of breath, or pain with breathing [id number] [employer]. [address] [place] [address]. All rights reserved. This information is not intended as a substitute for professional medical care. Always follow your healthcare professional's instructions. Additional Information VACCINATE! IT SAVES LIVES! Members of the community who have not yet received the COVID-19 vaccine and would like to receive it can visit one of [facility] vaccine clinics. There are many vaccine clinic locations within the [facility]. For locations and available times, please visit www.[email or web address].[place]. gov/. It is important to note that some COVID mobile vaccine clinics are held outdoors and may be canceled in rainy or stormy conditions. To learn more about pediatric vaccinations (ages 5-11), we invite you to visit the [facility] webpage. https://www.[facility].org/p ages/1341-Rrrqs-Jkwmdgrpork-Freq sijdcq-Afgwm-Vlltsrwyw.html To learn more about the COVID-19 vaccine, we invite you to visit the CDC website for a list of frequently asked questions. https://www.cdc.gov/coronavirus/ 2019-ncov/vaccines/faq.html [facility] Patient Portal Access Instructions: Stay connected with your healthcare team and access your personal medical information anytime with the [facility] Patient Portal. If you would like a full copy of your medical records please contact the [facility] Medical Records Department Wednesday through Wednesday between 8a.m. and 4:30p.m. Please follow the directions below to access the portal: 1.Access the email account you provided upon registration to the hospital.2.Look for an invitation email from [facility].3.Open the email and access the invitation link: Accept Invitation to [facility]4.Fill in the required munson to create your account. To access your account, visit [employer] or scan the [email or web address] code above. Click the blue button labeled Access Patient Portal and then log in with the username and password that you created in the steps above. You can then view a summary of results, a summary of your visits, and the ability to download your summaries to your computer or send the information securely to a physician. Remember that your healthcare information is confidential, so carefully consider who you will allow to register on the [facility] Patient Portal for access to your information. You can also access the [facility] Patient Portal on the [employer] lio. Simply click on Health Records under Health Data and then click on the [employer] logo. HOW TO SAFELY DISPOSE OF PRESCRIPTION MEDICATIONS Please use one of the following methods to safely dispose of your unused medications. 1.Use a drug disposal kit: the drug disposal pouch allows you to safely discard your old and unused drugs. Ask your nurse to give you one when you are discharged.2.Visit a local take-back location: Many local pharmacies and police departments have programs that collect old and unwanted prescription drugs. Call your local pharmacy or go to http://bit.Pixc/6E6Tj5z to find one close to you.3.Make use of household items: Use cat litter or old coffee grounds to dispose medications if other options are not available. Mix your drugs with these household products, seal them in an airtight container and throw it into the garbage. Call [facility]: [phone] to be sure your drugs can be disposed of in this way. Some medicines may require a different approach.4.Never flush your medications down the toilet. IF YOU HAVE BEEN PRESCRIBED AN OPIOIDS FOR PAIN If you have been prescribed an opioid (such as hydrocodone, oxycodone or morphine), it is critical to understand the possible side effects and risks of opioid pain medications. Even when taken as directed, opioids can have several side effects including: Tolerance, meaning you might need to take more of a medication for the same pain relief. Nausea, vomiting and/or constipation. Sleepiness, dizziness, dry mouth, confusion, depression or itching. Physical dependence, meaning you have withdrawal symptoms when a medication is stopped ? this can develop within a few days. KNOW YOUR RESPONSIBILITIES It is important to know exactly how much and how often to take the opioid pain medications you are prescribed. Never take opioids in higher amounts or more often than prescribed. Do not combine opioids with alcohol or other drugs that cause drowsiness, such as benzodiazepines, also known as benzos, including diazepam and alprazolam, muscle relaxants or sleep aids. Never sell or share prescription opioids. This is illegal. Store opioids in a secure place and out of reach of others (including children, family, friends and visitors). The last page(s) of this document has been signed and retained as a CHART COPY Signatures Patient Education Materials Bronchitis With Wheezing (Adult) Medication Leaflets My discharge plan and instructions have been reviewed and explained to me and ANGELICA Lee PAULA M understand my current condition and have read and understand these discharge instructions. I have received a written copy of the plan/instructions. If I have questions, I am aware that I should contact my doctor. Patient/Teaching Specialists Signature: Date/Time: Relationship to Patient: Witness Name/Signature: Date/Time: [facility] 05-12-2025 Note Exam Date Time Procedure Performing Provider Status 05/12/25 11:25 PM XR Chest 1 View BOOM CHIN MD; Au (Verified) [id number] ORIGINAL EXAMINATION: ONE XRAY VIEW OF THE CHEST05/12/2025 11:26 pm Portable upright COMPARISON: None HISTORY: ORDERING SYSTEM PROVIDED HISTORY: Reason for Exam: SOB/cough/fever, FINDINGS: Normal heart and mediastinum and pulmonary vasculature. No consolidation, pleural effusion or pneumothorax. There are streaky opacities in the lower lungs that could be summation artifacts from overlapping soft tissue and breast density versus lung infiltrates. No acute rib fractures. IMPRESSION: Bibasilar streaky opacities are favored to be artifact, interstitial pathology not excluded. Consider PA and lateral views. Interpreted by: Boom Chin MD Preliminary Report By: Boom Chin MD Electronically signed By Boom Chin MD Dictated Date: 05/13/2025 12:08:40 AM Prelim Date: 05/13/2025 12:09:24 AM Sign Date: 05/13/2025 12:09:24 AM Ordering Provider: TAMIR HATFIELD [facility]10-25-2025 Note* Exam Date Time Procedure Performing Provider Status 05/12/25 11:10 PM EKG [ED AOH] - CV TAMIR HATFIELD DO; Auth (Verified) ECG Final Report Sinus rhythm Electronic Signature: TAMIR HATFIELD DO 05/13/2025 00:57:05 [facility]09-20-2025 Radiology Diagnostic study note [facility] Imaging Services [address] [place] [address] Chest PA and Lateral MR#: [id number] Acct: [id number] Name: WILLOW DOMINGUEZ Rep #: [id number] : 1960 F 64 From: Dipesh Carrillo MD PCP: Dr. Britney Fernández MD Status: REG C CAROL Study:Chest PA and Lateral Date of Exam: 04/04/25 Exam# [id number] Ordering Dr: Britney Fernández MD PROCEDURE: CHEST PA AND LATERAL 04/04/2025 REASON FOR EXAM: SOB TECHNIQUE: Procedure Code: RADCXR Modality: DX Procedure: CHEST PA AND LATERAL COMPARISON: None FINDINGS: The heart and mediastinum are normal. The lungs are clear. There is no focal consolidation or effusion. No pneumothorax. Osseous structures reveal mild multilevel degenerative disc disease of the spine. RAD/Chest PA and Lateral IMPRESSION: No acute cardiopulmonary disease. Reading Location: [facility] CC: Dr. Britney Fernández MD ~ Computer Systems Architect: Signed [facility]09-16-2025 NoteHNO ID: [id number] Author: ANEESH DENNY MD Service: ? Author Type: Physician Type: Progress Notes Filed: 04/07/2025 18:46 Note Text: Division of Plastic Surgery Consult Note CHIEF COMPLAINT: Lesion of left cheek History Obtained From: patient, family member, and EMR HISTORY OF PRESENT ILLNESS: The patient is a 64 year old female who presents with left cheek lesion which has been biopsied as a melanoma - surrounding discoloration present for years. The patient states that they first noticed the lesion month(s) ago. It has grown in size since they first noticed the lesion. The lesion has changed in color and has had discharge or bleeding. The pt has the lesion biopsied previously. The patient has not had the lesion removed previously. The patient states the lesion is not painful. The pt denies any associated symptoms. PAST MEDICAL HISTORY Diagnosis Date Breast reduction 2000 complet Thyrodiectomy 09/2010 Hypothyroidism Malignant melanoma (HCC) 02/2025 left malar cheek, bx proven partial Thyroidectomy 05/2010 Right Knee Torn Meniscus 2019 PAST SURGICAL HISTORY Procedure Laterality Date PAST SURGICAL HISTORY OF knee menisucs REDUCTION OF LARGE BREAST 2000 REMOVAL GALLBLADDER SKIN BX, 1 LESION 02/2025 THYROIDECTOMY 2009,2010, ALLERGIES No Known Allergies Current Outpatient Medications Medication Sig albuterol HFA (PROVENTIL HFA, VENTOLIN HFA) 90 mcg/actuation inhaler Inhale 2 puffs as instructed every 4 hours as needed for wheezing/shortness of breath. cefdinir (OMNICEF) 300 mg capsule Take 1 capsule by mouth every 12 hours. citalopram (CELEXA) 20 mg tablet Take 1 tablet by mouth once daily. codeine-guaiFENesin (ROBITUSSIN AC) 10-100 mg/5 mL syrup Take 5 mL by mouth three times a day as needed for cold/allergy symptoms. ergocalciferol 50,000 unit capsule (VITAMIN D2, DRISDOL) Take 1 capsule by mouth one time a week. SYNTHROID 175 mcg tablet Take 175 mcg by mouth daily before breakfast. No current facility-administered medications for this visit. REVIEW OF SYSTEMS: CONSTITUTIONAL: negative for fevers, chills, sweats and fatigue EYES: negative for dipolpia or acute vision loss. RESPIRATORY: negative for dry cough, cough with sputum, dyspnea, wheezing and chest pain HENT:negative for pain, headache, difficulty swallowing or nose bleeds. CARDIOVASCULAR: negative for chest pain, dyspnea, palpitations, syncope GASTROINTESTINAL: negative for nausea, vomiting, change in bowel habits, diarrhea, constipation and abdominal pain EXTREMITIES: negative for edema MUSCULOSKELETAL: negative for muscle weakness SKIN: positive for lesionnegative for itching or rashes. HEME: negative for easy brusing or bleeding BEHAVIOR/PSYCH: negative for poor appetite, increased appetite, decreased sleep and poor concentration PHYSICAL EXAM: BP 132/88 Pulse 79 Ht 5' 9 (1.75m) Wt 257 lb (116.6kg) BMI 37.93 kg/(m2). CONSTITUTIONAL: awake, alert, cooperative, no apparent distress, and appears stated age EYES: PERRLA, EOMI, no signs of occular infection, CN V and VII intact EXTREMITIES: no signs of clubbing or cyanosis. NEURO: Cranial nerves II-XII grossly intact. No signs of agitated mood. SKIN: melanotic skin lesion with 1cm x1cm area of redness s/p biopsy, unclear margins IMPRESSION/RECOMMENDATIONS: Encounter Diagnosis ICD-10-CM 1. Malignant melanoma of face (HCC) C43.30 -We will plan to proceed with below: Surgery Scheduling Willow Dominguez 1960 Procedure: Left cheek ATT, possible skin sub, possible complex closure OR Time Needed: 90 min [place] or ASC:[facility] Equipment Request: plastics set, 10F drain avail and 4-0 prolene (not opened), face lift scissors, bipolar, needle tip, 5-0 monocryl, 5-0 fast, 5-0 PDS SA Requested: yes if no PA Anesthesia: General - tubing to the right Post op appointment: 1,3,6 Inpatient stay: n/a Block Needed: No Pre Testing Needed: No Occupational Therapy: No Cosmetic: No Aneesh Denny MD -The risks, benefits and options were discussed with the pt. The risks included but not limited to pain, bleeding, infection, heavy scarring, damage to surrounding structures, fluid collections, asymmetry, and need for further procedures. All of Her questions were answered to their satisfaction and She agrees to proceed with the procedure. Aneesh Denny MD During this patient visit I have spent approximately 30 minutes out of 45 in counseling regarding treatment options and coordinating care.[facility]09-04-2025 History and physical note* Bernadette Buck MD - 03/22/2025 10:30 AM EDT Images from the original note were not included. Bernadette Buck MD Surgical Oncology [address] [facility], [address] [place] [address] Name: Willow Dominguez Age: [age] year old Sex: Willow Dominguez : 1960 Referring Provider: Fitz Landeros PA-C Subjective CHIEF COMPLAINT: Melanoma ONCOLOGIC HISTORY: 02/23/2025: Skin biopsy: melanoma Anatomic Location: L cheek Breslow Depth: 0.6mm Ulceration: No Mitosis: 0/mm2 HISTORY OF PRESENT ILLNESS: Ms. Dominguez is a 64 year old female who presents for initial evaluation for melanoma. New Skin Lesion: No Changing size/shape: Yes Bleeding: No Other concerning lesions/nodules: No Prior history of melanoma: No History of sunburns:Yes History of tanning bed use: No Family history of Melanoma: No Anatomic Location: L cheek Breslow Depth: 0.6mm Ulceration: No Mitosis: 0/mm2 I personally reviewed Allergies Meds Problems Med Hx Surg Hx Fam Hx Objective PHYSICAL EXAM: BP 138/78 Pulse 81 Ht 5' 9.291 (1.76m) Wt 261 lb 1 oz (118.4kg) SpO2 95% BMI 38.23 kg/(m^2). Physical Exam Constitutional: General: She is not in acute distress. Appearance: Normal appearance. HENT: Head: Normocephalic and atraumatic. Mouth/Throat: Mouth: Mucous membranes are moist. Eyes: Extraocular Movements: Extraocular movements intact. Cardiovascular: Rate and Rhythm: Normal rate. Pulmonary: Effort: Pulmonary effort is normal. No respiratory distress. Abdominal: General: Abdomen is flat. Palpations: Abdomen is soft. Musculoskeletal: General: Normal range of motion. Cervical back: Normal range of motion. Lymphadenopathy: Cervical: No cervical adenopathy. Upper Body: Right upper body: No supraclavicular adenopathy. Left upper body: No supraclavicular adenopathy. Skin: General: Skin is warm and dry. Comments: Biopsy site without residual pigmentation Neurological: General: No focal deficit present. Mental Status: She is alert and oriented to person, place, and time. Mental status is at baseline. Psychiatric: Mood and Affect: Mood normal. Behavior: Behavior normal. Thought Content: Thought content normal. Judgment: Judgment normal. DATA: Pathology Report: 02/23/2025: L medial malar cheek: melanoma Histologic type: lentigo maligna melanoma Maximum tumor thickness: 0.6mm Ulceration: not identified Margins: Positive Deep: uninvolved Peripheral: involved by melanoma in situ Mitotic indesx: 0/mm2 Microscopic satellites: not identified Lymphovascular invasion: not identified Perineural linvasion: not identified Regression: not identified Pathologic stage: pT1a Assessment/Plan Ms. Dominguez is a 64 year old female with melanoma of left cheek. Surgical Planning: WLE: Yes SLNB: No - Melanoma [place] risk calculator: 2% Adjacent tissue rearrangement, possible skin graft: Yes Plastics to close: Yes Cardiac History: no On ASA or Anticoagulants: no Pacemaker/defibrillator/implanted device: no Cancer Staging Malignant melanoma of face (HCC) Staging form: Melanoma of the Skin, AJCC 8th Edition - Clinical: Stage IA (cT1a, cN0, cM0) - Signed by Bernadette Buck MD on 03/22/2025 Bernadette Buck MD 03/22/2025 [id number] [facility]09-04-[facility]25 History and physical note* Bernadette Buck MD - 03/22/2025 10:30 AM EDT Images from the original note were not included. Bernadette Buck MD Surgical Oncology [address] [facility], [address] [place] [address] Name: Willow Dominguez Age: [age] year old Sex: Willow Dominguez : 1960 Referring Provider: Fitz Landeros PA-C Subjective CHIEF COMPLAINT: Melanoma ONCOLOGIC HISTORY: 02/23/2025: Skin biopsy: melanoma Anatomic Location: L cheek Breslow Depth: 0.6mm Ulceration: No Mitosis: 0/mm2 HISTORY OF PRESENT ILLNESS: Ms. Dominguez is a 64 year old female who presents for initial evaluation for melanoma. New Skin Lesion: No Changing size/shape: Yes Bleeding: No Other concerning lesions/nodules: No Prior history of melanoma: No History of sunburns:Yes History of tanning bed use: No Family history of Melanoma: No Anatomic Location: L cheek Breslow Depth: 0.6mm Ulceration: No Mitosis: 0/mm2 I personally reviewed Allergies Meds Problems Med Hx Surg Hx Fam Hx Objective PHYSICAL EXAM: BP 138/78 Pulse 81 Ht 5' 9.291 (1.76m) Wt 261 lb 1 oz (118.4kg) SpO2 95% BMI 38.23 kg/(m^2). Physical Exam Constitutional: General: She is not in acute distress. Appearance: Normal appearance. HENT: Head: Normocephalic and atraumatic. Mouth/Throat: Mouth: Mucous membranes are moist. Eyes: Extraocular Movements: Extraocular movements intact. Cardiovascular: Rate and Rhythm: Normal rate. Pulmonary: Effort: Pulmonary effort is normal. No respiratory distress. Abdominal: General: Abdomen is flat. Palpations: Abdomen is soft. Musculoskeletal: General: Normal range of motion. Cervical back: Normal range of motion. Lymphadenopathy: Cervical: No cervical adenopathy. Upper Body: Right upper body: No supraclavicular adenopathy. Left upper body: No supraclavicular adenopathy. Skin: General: Skin is warm and dry. Comments: Biopsy site without residual pigmentation Neurological: General: No focal deficit present. Mental Status: She is alert and oriented to person, place, and time. Mental status is at baseline. Psychiatric: Mood and Affect: Mood normal. Behavior: Behavior normal. Thought Content: Thought content normal. Judgment: Judgment normal. DATA: Pathology Report: 02/23/2025: L medial malar cheek: melanoma Histologic type: lentigo maligna melanoma Maximum tumor thickness: 0.6mm Ulceration: not identified Margins: Positive Deep: uninvolved Peripheral: involved by melanoma in situ Mitotic indesx: 0/mm2 Microscopic satellites: not identified Lymphovascular invasion: not identified Perineural linvasion: not identified Regression: not identified Pathologic stage: pT1a Assessment/Plan Ms. Dominguez is a 64 year old female with melanoma of left cheek. Surgical Planning: WLE: Yes SLNB: No - Melanoma [place] risk calculator: 2% Adjacent tissue rearrangement, possible skin graft: Yes Plastics to close: Yes Cardiac History: no On ASA or Anticoagulants: no Pacemaker/defibrillator/implanted device: no Cancer Staging Malignant melanoma of face (HCC) Staging form: Melanoma of the Skin, AJCC 8th Edition - Clinical: Stage IA (cT1a, cN0, cM0) - Signed by Bernadette Buck MD on 03/22/2025 Bernadette Buck MD 03/22/2025 [id number] [facility] + Plan note Diagnostic Tests Pending * Thyroglobulin, Serum with Reflex 05/17/23 [facility] Evaluation + Plan note No data available for this section [facility] Evaluation noteNo assessment information available [facility] Work Phone: Evaluation note* Diagnosis Onset Date Resolution Status Genetic counseling acute Vulvar itching acute Encounter for routine gynecological examination noneactive [facility] Work Phone: Evaluation note* Diagnosis Malignant melanoma of face (HCC)- Primary Malignant melanoma of skin of other and unspecified parts of face [facility] No data available for this section [facility] Progress note No data available for this section [facility] Reason for referral (narrative)No reason for referral information availableWWright-[facility] Work Phone: Summary Purpose Family History No Family History [...] No February 16, 2020 9:04am Power of Inspector Repairer No February 15 0 9:04am Advance Directive Response Recorded Date/ Time Advance Directives No May 24, 2015 9:38am Living Will No February 16, 2020 10:04am Power of Inspector Repairer No February 15 0 10:04am Advance Directive Response Recorded Date/ Time Advance Directives No May 24, 2015 9:38am Chief Complaint and Reason for Visit Chief Complaint CHILLS WITHOUT FEVER Chief Complaint CHILLS WITHOUT FEVER 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 Reason for Visit Genetic counseling Vulvar itching Encounter for routine gynecological examination Chief Complaint Admit Date SCREENING February 23, 2025 1:3 4pm Chief Complaint Admit Date SCREENING February 23, 2025 1:3 4pm Shortness of breath April 04, 2025 3:57pm Additional Source Comments INFORMATION SOURCE (unrecogn ized section and content) DATE CREATED AUTHOR 01/12/2018 [facility] DATE CREATED AUTHOR AUTHOR'S ORGANIZ ATION 05/19/2023 [facility] ([place]) DATE CREATED AUTHOR AUTHOR'S ORGANIZ ATION 04/08/2025 [facility] DATE CREATED AUTHOR AUTHOR'S ORGANIZ ATION 05/17/2025 [facility] DATE CREATED AUTHOR AUTHOR'S ORGANIZ ATION 05/26/2025 [facility] Goals (unrecognized section and content) Goals may be documented in a n alternate section Care Teams (unrecognized sec tion and content) Team Status: Active Member Role Status Dates Dr. Alem Ramon MD Family Provider Active Dr. Britney Fernández MD Primary Care Provider Active Team Status: Inactive Member Role Status Dates Dr. Britney Fernández MD Primary Care Provi basim, Attending Provider, Referring Provider Active Team Status: Inactive Member Role Status Dates Dr. Britney Fernández MD Primary Care Provider, Referring Provider Active Chaya Gold CNM Attending Provider Active Team Status: Inactive Member Role Status Dates Dr. Britney Fernández MD Primary Care Provider Active Dr. Delaney Magaña MD Attending Provider, Referring Provider Active Team Status: Active Member Role/Relationship Status Dates Dr. Britney Fernández MD Primary Care Provider Active Team Status: Inactive Member Role/Relationship Status Dates Dr. Britney Fernández MD Primary Care Provider Active Start: November 17, 2024 End: November 17, 2024 Dr. Delaney Magaña MD Attending Provider Active Start: November 17, 2024 End: November 17, 2024 Dr. Delaney Magaña MD Referring Provider Active Start: November 17, 2024 End: November 17, 2024 Team Status: Inactive Member Role/Relationship Status Dates Dr. Britney Fernández MD Primary Care Provider Active Start: February 20, 2025 End: February 20, 2025 Dr. Britney Fernández MD Attending Provider Active Start: February 20, 2025 End: February 20, 2025 Team Status: Active Member Role/Relationship Status Dates Dr. Britney Fernández MD Primary Care Provider Active Start: February 23, 2025 Dr. Britney Fernández MD Attending Provider Active Start: February 23, 2025 Dr. Britney Fernández MD Referring Provider Active Start: February 23, 2025 Team Status: Inactive Member Role/Relationship Status Dates Dr. Britney Fernández MD Primary Care Provider Active Start: February 23, 2025 End: February 23, 2025 Dr. Britney Fernández MD Attending Provider Active Start: February 23, 2025 End: February 23, 2025 Dr. Britney Fernández MD Referring Provider Active Start: February 23, 2025 End: February 23, 2025 Team Status: Active Member Role/Relationship Status Dates Dr. Britney Fernández MD Primary care physician Active Team Status: Inactive Member Role/Relationship Status Dates Dr. Britney Fernández MD Primary care physician Active Start: February 20, 2025 End: February 20, 2025 Dr. Britney Fernández MD Attending physician Active Start: February 20, 2025 End: February 20, 2025 Team Status: Inactive Member Role/Relationship Status Dates Dr. Britney Fernández MD Primary care physician Active Start: February 23, 2025 End: February 23, 2025 Dr. Britney Fernández MD Attending physician Active Start: February 23, 2025 End: February 23, 2025 Dr. Britney Fernández MD Referring Provider Active Start: February 23, 2025 End: February 23, 2025 Team Status: Inactive Member Role/Relationship Status Dates Dr. Britney Fernández MD Primary care physician Active Start: April 04, 2025 End: April 04, 2025 Dr. Britney Fernández MD Attending physician Active Start: April 04, 2025 End: April 04, 2025 Dr. Britney Fernández MD Referring Provider Active Start: April 04, 2025 End: April 04, 2025 Source Comments (unrecognize d section and content) In the event this informatio n is protected by the Federal Confidentiality of Alcohol and Drug Abuse Patient Records regulations: The Federal rules restrict any use of the information to criminally investigate or prosecute any alcohol or drug abuse patient.[facility] Center[facility] the event this information is protected by the Federal Confidentiality of Alcohol and Drug Abuse Patient Records regulations: The Federal rules restrict any use of the information to criminally investigate or prosecute any alcohol or drug abuse patient.[facility] Reason for Visit (unrecogniz ed section and content) Reason Comments New Patient Melanoma Left Cheek FOR RECORDS PERTAINING TO PATIENTS WHO ARE [...] BE BASED ON THE PRIMARY CLINICAL RECORDS. [facility]. provides no warranty or guarantee of the accuracy or completeness of information in this document.
[2025-07-04 09:48] LABS: Hematocrit 46.3 % (37-47); Hemoglobin 14.7 g/dL (12.0-15.0); Immature Granulocytes Count 0.030 X10^3/uL (0.0-0.0); Mean Corp Hgb Conc 31.7 g/dL (32-36); Mean Corpuscular Volume 91.5 fL (81-99); Mean Platelet Vol. 9.8 fl (6.2-12.0); NRBC Flagged by Analyzer 0 % (0-5); Platelet Count 252 K/mm3 (150-450); RBC Distribution Width CV 13.3 % (11.6-14.6); RBC Distribution Width SD 45.3 fl (35.1-43.9); Red Blood Count 5.06 M/mm3 (4.2-5.4); White Blood Count 5.6 K/mm3 (4.4-11.0)
[2025-07-04 10:42] LABS: Cholesterol 252 mg/dL (<=200); Low Density Lipoprotein Calc. 158 mg/dL; Triglycerides 62 mg/dL; Very Low Density Lipoprotein 12 mg/dL (5-40); Vitamin D,25 Hydroxy 56.2 ng/mL (30-100); cholesterol:hdl ratio screen 3.01
[2025-07-04 11:09] LABS: AST(SGOT) 26 U/L (<=31); Alanine Aminotransfer ALT/SGPT 18 U/L (<=34); Albumin, Serum 4.1 g/dL (3.4-4.8); Alkaline Phosphatase 83 U/L (35-104); Anion Gap 10 (5-15); BUN 19 mg/dL (4-19); BUN/Creat Ratio 22.0 RATIO (10-20); Calcium,Total 9.9 mg/dL (7.6-11.0); Carbon Dioxide 25.4 mmol/L (21.0-32.0); Chloride 104 mmol/L (98-108); Globulin 3.0 g/dL (2.2-4.2); Glucose 97 mg/dL (70-99); Potassium 4.6 mmol/L (3.3-5.1)
[2025-07-04 16:59] LABS: Xtra Tube Kwok EXTRA TUBE
== END | disposition home or self-care (01) ==
LOC: POLAB3 08:59
PROVIDERS: PCP Family Medicine Geriatric Medicine; Visit Provider Family Medicine Geriatric Medicine
DX: E03.9 Hypothyroidism, unspecified (principal); E66.9 Obesity, unspecified; E78.5 Hyperlipidemia, unspecified; I10 Essential (primary) hypertension
CPT/HCPCS: 36415; 80053; 80061; 82306; 84443; 85025